=== PATIENT | female | born 1985 | race American Indian/Alaskan Native ===

== ENCOUNTER 2016-04-08 11:27 | Inpatient (IN) | payer MEDICAID ==
[2016-04-08] MEDS ORDERED: Betamethasone Acetate/Betamethasone Sod Phosphate 30 MG/5 ML MDV IM ONE (12:06)
[2016-04-08] MEDS ORDERED: Penicillin G Potassium 5 MILLUNITS in Sodium Chloride 0.9% 100 ML IV ONE (12:08)
[2016-04-08] MEDS ORDERED: Lactated Ringers 1,000 ML IV ONE (12:09)
[2016-04-08] MEDS ORDERED: Magnesium Sulfate/Water 100 ML IV ONE (12:16)
[2016-04-08] MEDS ORDERED: Citric Acid/Sodium Citrate Solution 30 ML Cup PO ONE (12:43)
[2016-04-08] MEDS ORDERED: Sodium Chloride 0.9% 10 ML Syringe FLUSH PRN (12:43)
[2016-04-08] MEDS ORDERED: ceFAZolin 2 GM in Premix Bag 1 BAG IV ONE (12:43)
[2016-04-08] MEDS ORDERED: Oxytocin/Normal Saline 30 UNIT/500 ML BAG IV SCH (13:00)
--- NOTE | 2016-04-08 13:24 | HP ---
CHIEF COMPLAINT: Leaking fluid since last night, sharp abdominal pains every 15 minutes. HISTORY OF PRESENT ILLNESS: A 31-year-old, currently at 29 weeks 3 days gestation of her fifth , who presents to Labor and Delivery reporting feeling leakage of fluid starting around 11 o'clock last night and reporting sharp abdominal pains about every 15 minutes that started about 11 o'clock this morning. Current time is 12:51 a.m. Nurses report that the pain is so severe that she will cry with the pain that she reports that they feel contraction- like. She has been having movement. She has not had any obvious vaginal bleeding. Nurse's Nitrazine test on the pad was positive. Obstetrical history can be reviewed in [facility], no time detail that now. Four prior vaginal deliveries at term. Prior gestational diabetes. One prior shoulder dystocia. OBSTETRICAL LABORATORY DATA: Blood type O positive. Rubella immune. Syphilis serology, HIV, gonorrhea, chlamydia, hepatitis all negative. Group B strep unknown. Glucose tolerance test abnormal. Patient diagnosed as gestational diabetic, diet controlled. PAST MEDICAL HISTORY: Asthma, chronic lumbar back pain, poor weight gain of , refused influenza vaccine, anemia of , and tobacco abuse. Gestational diabetes. PAST SURGICAL HISTORY: Dental surgery and hand fracture. FAMILY HISTORY: Mother, hypertension and diabetes. Father, diabetes and asthma. Brother, diabetes. Grandparents, one of a brain hernia or aneurysm, stroke and diabetes. Otherwise, family history is negative. 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 She is not currently in a relationship with the father of the baby. She lives with her mother who helps her take care of her 4 children, one of whom was just discharged from the hospital this past weekend. She also lives with a brother who is a handicap, but he helps take care of her older 2 children when she is at work. ALLERGIES: Ibuprofen causes swelling of the legs, feet, as well as a skin rash. MEDICATIONS: Iron twice daily. Currently not on any diabetes medications. Thyroid levels being monitored throughout and not requiring medications. REVIEW OF SYSTEMS: As per the history of present illness. No symptoms of preeclampsia. No symptoms of severe anemia. No syncope. No fever or chills. No numbness or tingling. Some pelvic pressure with her abdominal pains. PHYSICAL EXAMINATION: Vital Signs: Not yet in [employer]. General: Grossly, the patient is in mild distress mostly emotionally, some pain with contractions. HEENT: Unremarkable. Heart: Regular without murmur. Lungs: Clear bilaterally. Abdomen: Soft, gravid. Difficult to trace heart tones. They are roughly about 120 beats per minute at baseline when we can get them. They decelerate down into the 90s every time she reports the sharp pains. [place] is not tracing contractions, but patient is marking when she does get the sharp pain. Cervix is long, closed internally, open externally. Pooling was present. Nitrazine negative per my exam. Watery fluid was present. Extremities: No edema, erythema, or tenderness. LABORATORY DATA: Hemoglobin 9.4, platelet count 252. Wet prep with moderate clue cells. Ferning is negative. AmniSure negative. Ultrasound shows grossly normal amount of amniotic fluid. BPP is pending. Baby is breech. Tech sees probable placental abruption at the end of the exam that she did not see at the initial start of the exam. heart tone decelerations confirmed with ultrasound. ASSESSMENT: 1. Multiparous patient, , 4 prior vaginal deliveries. 2. distress, suspect placental abruption. 3. Anemia of , hgb 9.4. 4. Gestational diabetes, currently diet controlled. 5. High-risk overall with a history of spotting in the second trimester at 15 weeks' gestation. 6. History of macrosomic delivery. 7. Poor weight gain of . 8. Chronic back pain. 9. Asthma. 10. Placental abruption on US. 11.Nuchal cord on US. 12.GBS unknown. PLAN: Intensive Care Nursery was called and asked to come to [place] as soon as possible for urgent emergent delivery. Dr. Rudd was consulted and he also rendered his opinion and looked over all of the information with me. We both agree that the patient needs to be taken to the operating room for delivery via primary section. We will attempt a low transverse; however, may need to convert to classical or inverted T-incision in order to get the baby out. Dr. Rudd and I will be managing the baby after delivery until the NICU comes. [facility] /[id number] [facility]
[2016-04-08] MEDS ORDERED: Carboprost Tromethamine 250 MCG/1 ML Amp ONE (14:06)
[2016-04-08] MEDS ORDERED: Methylergonovine 0.2 MG/1 ML Amp ONE (14:06)
[2016-04-08] MEDS ORDERED: Ondansetron 4 MG/2 ML SDV IV PRN (15:25)
[2016-04-08] MEDS ORDERED: Naloxone 2 MG/2 ML Syringe IVPUSH PRN (15:25)
[2016-04-08] MEDS ORDERED: ePHEDrine 50 MG/ML SDV IVPUSH PRN (15:25)
[2016-04-08] MEDS ORDERED: diphenhydrAMINE 50 MG/ML SDV IVPUSH PRN (15:25)
--- NOTE | 2016-04-08 15:54 | PCM.SN ---
- Free Text/Narrative Note: Preop Late entry. 1350. Pt to OR 2 emergently for stat standby C section. Hx reviewed w MD and Pt. No family Hx of anesthesia complications. NPO 5 hrs. Pos smoker, Neg GERD. Mallampati 2. Hx gestational diabetes, hypothyroid, anemia, . Lungs CTAB, heart regular w/o m. Risks benefits and alternatives of anesthesia explained to Pt. Pt denies questions or concerns. Plan SAB w GETA backup.
[2016-04-08] MEDS: Lactated Ringers 1,000 ML IV SCH ×3 (16:54→21:14)
[2016-04-08] MEDS: Acetaminophen 325 MG Tab PO SCH (20:44)
[2016-04-08] MEDS: Acetaminophen/oxyCODONE 325-5 MG Tab PO PRN (23:31)
[2016-04-09] MEDS: Acetaminophen 325 MG Tab PO SCH ×2 (00:08→05:48)
[2016-04-09] MEDS: Ferrous Sulfate 325 MG Tab PO SCH ×3 (00:08→17:54)
[2016-04-09] MEDS: Acetaminophen/oxyCODONE 325-5 MG Tab PO PRN ×5 (04:46→22:21)
[2016-04-09] MEDS: Simethicone 80 MG Tab.Chew PO PRN ×4 (04:46→22:21)
[2016-04-09] MEDS: Lactated Ringers 1,000 ML IV SCH (04:59)
[2016-04-09] MEDS ORDERED: Acetaminophen 325 MG Tab PO PRN (06:33)
--- NOTE | 2016-04-09 06:59 | OR ---
DATE: 04/08/2016 PREPROCEDURE DIAGNOSES: 1. 5, para 4-0-0-4 at 29 and 3/7th weeks gestation based on 9 week ultrasound. 2. Placental abruption suspected clinically and with evidence on ultrasound per tech impression. 3. distress with heart rate decelerations down into the 90s. 4. Anemia of . Admission hemoglobin 9.4. 5. Gestational diabetes, diet controlled. 6. High risk with a history of bleeding at 15 weeks. 7. History of delivery macrosomic . 8. Poor weight gain of . 9. Mild asthma. 10.Likely nuchal cord seen on ultrasound. 11.Group B strep status, unknown. POSTPROCEDURE DIAGNOSES: 1. 5, para 4-0-0-4 at 29 and 3/7th weeks gestation based on 9 week ultrasound. 2. Placental abruption suspected clinically and with evidence on ultrasound per tech impression. 3. distress with heart rate decelerations down into the 90s. 4. Anemia of . Admission hemoglobin 9.4. 5. Gestational diabetes, diet controlled. 6. High risk with a history of bleeding at 15 weeks. 7. History of delivery macrosomic . 8. Poor weight gain of . 9. Mild asthma. 10.Likely nuchal cord seen on ultrasound. 11.Group B strep status, unknown. 12.Anemia of acute blood loss. 13.Status post primary with double-layer closure and internal cephalad version. 14.Initiation of blood transfusions intraoperatively. BRIEF HISTORY: A 31-year-old female with the above-listed diagnoses, presented to the hospital reporting leakage of fluid since 11:00 the night before, and pain that started about one hour prior to arrival in the abdomen sharp in quality and occurring about every 15 minutes. Rapid assessment showed Nitrazine positive on the panty liner that she was wearing. However, speculum exam showed positive pooling but negative Nitrazine, and negative AmniSure and ferning. Cervix was palpated to be long and closed. Ultrasound showed a cervix of 5.3 cm measured transabdominally baby is in breech presentation. Adequate amniotic fluid volume of greater than 16. Biophysical profile of 8/10. Radiologist interpretation of possible placental abruption area was of a uterine contraction with the distress and overall clinical picture consistent with placental abruption. The patient taken to the operating room for delivery. PROCEDURE PERFORMED: 1. Primary low transverse section with internal cephalad version from breech to vertex successful, and delivery of a viable female infant. 2. Double-layer uterine closure. The patient is a candidate for . SURGEON: Ariela Vallejo MD. FINANCIAL INVESTMENT ADVISER: Varinder Rudd MD. SECOND DIAMOND SIZER AND GRADER: Rina SANTIAGO. CONSENT: Discussed with the patient ahead of time. Risk for potential infection and plan for preoperative antibiotics, risk for bleeding to the point of requiring a blood transfusion, as well as its inherent risks such as transfusion reaction or contraction of blood borne disease such as hepatitis or HIV, risk of injury to any internal organs or adjacent structures including, but not limited to, large blood vessels, nerves, veins, uterus fallopian tubes, ovaries, intestines, bladder, and other internal structures potential for complications for mother that would require her being transferred to another facility for higher level of care and even potential risk of , potential risk to the baby of injury at time of delivery, and even potential for . NICU was prepared to be Enroute and present prior to delivery. DESCRIPTION OF PROCEDURE: The patient was brought to the operating room and spinal anesthesia obtained. West indwelling catheter had already been placed down on the Labor and delivery floor. We had maintained doppling of the heart tones which went from a baseline in the 150s up to the 180s to even 200s within 5 to 10 minutes before the NICU arrived. As soon as they are in the building, the abdomen was prepped and draped in the usual fashion and surgery initiated. Skin incision was made at 1423 hours and carried down to the underlying fascia with minimal use of cautery and mostly finger dissection. The fascia was then incised in the midline with scalpel and this was extended bilaterally with blunt finger traction and cautery. The superior fascial edge was grasped and tented up with Don's and rectus muscles dissected off bluntly. Inferior fascial edge grasped with Don's, tented up, and rectus muscles dissected off. Rectus muscles in the midline with blunt finger traction and peritoneal cavity entered with blunt finger dissection and this opening entered with traction. The uterus incision was made at 1425 hours with scalpel and carried down until the amniotic fluid sac was seen and hysterotomy site extended with the Lopez method, and with amniotic fluid sac intact Dr. Rudd attempted internal cephalad version and got the baby to the back down transverse. Amniotic fluid sac was then ruptured and I was able to complete the internal cephalad version to bring the baby's head down spine to the maternal right by performing backward roll, baby was then delivered at 1426 hours. 's mouth and nose were bulb suctioned. Three-vessel umbilical cord was doubly clamped and cut. Baby taken to the warmer for waiting NICU team. Placenta delivered by gentle cord traction and concomitant uterine massage at 1427 hours. With delivery of the placenta, there was some dark red blood clot seen consistent with old blood from an abruption. Several blood vessels on the uterus were bleeding and those were controlled with Herbert, and the uterus was then cleared of all clots and debris and trailing membranes. The hysterotomy site was then closed with a running lock stitch of 0 Vicryl in the usual fashion. A second imbricating stitch of 0 Vicryl was then used and excellent hemostasis obtained. The Andrea retractor was removed and the pericolic gutters were cleared of all clots and debris. Hysterotomy site reinspected and remained hemostatic. The peritoneal layer was brought together in the midline with a remnant stitch of 0 Vicryl. This layer was then irrigated and the fascia closed with a running stitch of 0 looped PDS in the usual fashion. Subcutaneous tissues were irrigated and small subcutaneous bleeders controlled with cautery. Skin was then closed with jumana at 1457 hours. The patient had blood started during her surgical course at the time of the uterus closure. Estimated blood loss was already near 2 L. ESTIMATED BLOOD LOSS AND FLUIDS: 2700 mL, suspect 500 of amniotic fluid at a minimum and approximately 2200 to 2300 of blood. URINE OUTPUT: 300 mL clear yellow. IV FLUIDS: 400 mL with blood, 2600 mL lactated Ringer's, 300 mL with Pitocin, and 100 mL with the magnesium sulfate. The patient had some low pressures and also did receive for 30 of ephedrine. COMPLICATIONS: Intrapartum hemorrhage anticipated because of the nature of the delivery and the magnesium sulfate had been given to the baby for neuroprotection. FINDINGS: Viable female infant, scores of 8 and 9. weight 1710 g. DISPOSITION: Mother will remain in the PACU with blood infusing until the baby is ready for transport by the NICU team. Once they have left, mother will be brought back to a room on Labor and Delivery. In addition to her 4 units of blood, she will be given some Benadryl with transfusion and also 10 of Lasix between units 2 and 3 to help with diuresis. [facility] /[id number] [facility]
--- NOTE | 2016-04-09 08:10 | PCM.SN ---
- Free Text/Narrative Note: 04/09/16 0805 postop patient recovered well from spinal anesthesia pain well controlled denies nausea no apparent complications with anesthesia
--- NOTE | 2016-04-09 08:33 | PCM.PNPP ---
<Rina Nichols - Last Filed: 04/09/16 08:25> - General Info Date of Service: 04/09/16 Functional Status: Reports: pain controlled, tolerating diet - Review of Systems General: Reports: no symptoms HEENT: Reports: no symptoms Pulmonary: Reports: no symptoms Cardiovascular: Reports: no symptoms Gastrointestinal: Reports: No symptoms Genitourinary: Reports: no symptoms Musculoskeletal: Reports: no symptoms Skin: Reports: no symptoms Neurological: Reports: no symptoms Psychiatric: Reports: no symptoms - General Info Date of Service: 04/09/16 - Patient Data Vital Signs - most recent: Last Vital Signs Temp 97.4 F 04/09/16 05:00 Pulse 73 04/09/16 05:00 Resp 16 04/09/16 05:00 BP 96/54 L 04/09/16 05:00 Pulse Ox 99 04/08/16 20:00 Weight - most recent: 96.162 kg I&O - last 24 hours: Intake & Output 04/08/16 04/09/16 04/09/16 22:59 06:59 14:59 Intake Total 3822 1000 Output Total 650 1300 Balance 3172 -300 Lab Results - last 24 hrs: Laboratory Results - last 24 hr 04/08/16 04/08/16 04/08/16 Range/Units 11:50 11:50 12:15 WBC 8.4 (5.0-10.0) 10^3/uL RBC 3.72 L (4.2-5.4) 10^6/uL Hgb 9.4 L (12.0-16.0) g/dL Hct 30.4 L (37.0-47.0) % MCV 81.7 (80-100) fL MCH 25.3 L (27.0-34.0) pg MCHC 30.9 L (33.0-35.0) g/dL Plt Count 252 (150-450) 10^3/uL Neut % (Auto) 76.4 H (42.2-75.2) % Lymph % (Auto) 16.2 L (20.5-50.1) % [place] % (Auto) 5.9 (2-8) % Eos % (Auto) 1.4 (1.0-3.0) % Baso % (Auto) 0.1 (0.0-1.0) % Urine Color (YELLOW) Urine Appearance (CLEAR) Urine pH (5.0-9.0) Ur Specific [place] (1.005-1.030) Urine Protein (NEGATIVE) Urine Glucose (UA) (NEGATIVE) Urine Ketones (NEGATIVE) Urine Occult Blood (NEGATIVE) Urine Nitrite (NEGATIVE) Urine Bilirubin (NEGATIVE) Urine Urobilinogen (0.2-1.0) mg/dL Ur Leukocyte Esterase (NEGATIVE) Urine RBC /HPF Urine WBC (0-5/HPF) /HPF Amorphous Sediment (0/HPF) /HPF Amniotic Ferning Test Not seen Membrane Rupture (NEG) Urine Opiates Screen (NEGATIVE) Ur Oxycodone Screen (NEGATIVE) Urine Methadone Screen (NEGATIVE) Ur Barbiturates Screen (NEGATIVE) U Tricyclic Antidepress (NEGATIVE) Ur Phencyclidine Scrn (NEGATIVE) Ur Amphetamine Screen (NEGATIVE) U Methamphetamines Scrn (NEGATIVE) Urine MDMA Screen (NEGATIVE) U Benzodiazepines Scrn (NEGATIVE) Urine Cocaine Screen (NEGATIVE) U Marijuana (THC) Screen (NEGATIVE) Blood Type O POSITIVE Gel Antibody Screen Negative Crossmatch See Detail 04/08/16 04/08/16 04/08/16 Range/Units 12:15 14:56 14:56 WBC (5.0-10.0) 10^3/uL RBC (4.2-5.4) 10^6/uL Hgb (12.0-16.0) g/dL Hct (37.0-47.0) % MCV (80-100) fL MCH (27.0-34.0) pg MCHC (33.0-35.0) g/dL Plt Count (150-450) 10^3/uL Neut % (Auto) (42.2-75.2) % Lymph % (Auto) (20.5-50.1) % [place] % (Auto) (2-8) % Eos % (Auto) (1.0-3.0) % Baso % (Auto) (0.0-1.0) % Urine Color Yellow (YELLOW) Urine Appearance Clear (CLEAR) Urine pH 7.0 (5.0-9.0) Ur Specific [place] 1.015 (1.005-1.030) Urine Protein Negative (NEGATIVE) Urine Glucose (UA) Negative (NEGATIVE) Urine Ketones 15 H (NEGATIVE) Urine Occult Blood Negative (NEGATIVE) Urine Nitrite Negative (NEGATIVE) Urine Bilirubin Negative (NEGATIVE) Urine Urobilinogen 0.2 (0.2-1.0) mg/dL Ur Leukocyte Esterase Negative (NEGATIVE) Urine RBC Not seen /HPF Urine WBC Not seen (0-5/HPF) /HPF Amorphous Sediment Occasional (0/HPF) /HPF Amniotic Ferning Test Membrane Rupture Negative (NEG) Urine Opiates Screen Negative (NEGATIVE) Ur Oxycodone Screen Negative (NEGATIVE) Urine Methadone Screen Negative (NEGATIVE) Ur Barbiturates Screen Negative (NEGATIVE) U Tricyclic Antidepress Negative (NEGATIVE) Ur Phencyclidine Scrn Negative (NEGATIVE) Ur Amphetamine Screen Negative (NEGATIVE) U Methamphetamines Scrn Negative (NEGATIVE) Urine MDMA Screen Negative (NEGATIVE) U Benzodiazepines Scrn Negative (NEGATIVE) Urine Cocaine Screen Negative (NEGATIVE) U Marijuana (THC) Screen Negative (NEGATIVE) Blood Type Gel Antibody Screen Crossmatch 04/08/16 Range/Units 22:30 WBC 10.1 H (5.0-10.0) 10^3/uL RBC 4.25 (4.2-5.4) 10^6/uL Hgb 11.1 L (12.0-16.0) g/dL Hct 34.9 L (37.0-47.0) % MCV 82.1 (80-100) fL MCH 26.1 L (27.0-34.0) pg MCHC 31.8 L (33.0-35.0) g/dL Plt Count 206 (150-450) 10^3/uL Neut % (Auto) (42.2-75.2) % Lymph % (Auto) (20.5-50.1) % [place] % (Auto) (2-8) % Eos % (Auto) (1.0-3.0) % Baso % (Auto) (0.0-1.0) % Urine Color (YELLOW) Urine Appearance (CLEAR) Urine pH (5.0-9.0) Ur Specific [place] (1.005-1.030) Urine Protein (NEGATIVE) Urine Glucose (UA) (NEGATIVE) Urine Ketones (NEGATIVE) Urine Occult Blood (NEGATIVE) Urine Nitrite (NEGATIVE) Urine Bilirubin (NEGATIVE) Urine Urobilinogen (0.2-1.0) mg/dL Ur Leukocyte Esterase (NEGATIVE) Urine RBC /HPF Urine WBC (0-5/HPF) /HPF Amorphous Sediment (0/HPF) /HPF Amniotic Ferning Test Membrane Rupture (NEG) Urine Opiates Screen (NEGATIVE) Ur Oxycodone Screen (NEGATIVE) Urine Methadone Screen (NEGATIVE) Ur Barbiturates Screen (NEGATIVE) U Tricyclic Antidepress (NEGATIVE) Ur Phencyclidine Scrn (NEGATIVE) Ur Amphetamine Screen (NEGATIVE) U Methamphetamines Scrn (NEGATIVE) Urine MDMA Screen (NEGATIVE) U Benzodiazepines Scrn (NEGATIVE) Urine Cocaine Screen (NEGATIVE) U Marijuana (THC) Screen (NEGATIVE) Blood Type Gel Antibody Screen Crossmatch Micro Results - last 24 hours: Microbiology 04/08/16 12:15 Wet Prep - Final Vagina Med Orders - Current: Current Medications Acetaminophen (Tylenol) 650 mg PO Q6H PRN PRN Reason: Pain Diphenhydramine HCl (Benadryl) 25 mg IVPUSH Q6H PRN PRN Reason: Itching or Nausea Docusate Sodium (Colace) 100 mg PO Q12H PRN PRN Reason: Constipation Ephedrine Sulfate (Ephedrine Sulfate) 5 mg IVPUSH SEECOMMENT PRN PRN Reason: Other Ferrous Sulfate (Ferrous Sulfate) 325 mg PO BIDMEALS GISELLA Last Admin: 04/09/16 00:08 Dose: Not Given Oxytocin/Sodium Chloride (Pitocin In Ns 30 Unit/500 Ml) 30 unit in 500 mls @ 500 mls/hr IV TITRATE GISELLA; 500 MUNITS/MIN PRN Reason: Protocol Last Titration: 04/08/16 18:05 Dose: 0 munits/min, 0 mls/hr Lactated Ringer's (Ringers, Lactated) 1,000 mls @ 125 mls/hr IV ASDIRECTED GISELLA Last Admin: 04/09/16 04:59 Dose: 125 mls/hr Naloxone HCl (Narcan) 0.1 mg IVPUSH SEECOMMENT PRN PRN Reason: Respiratory Depression Ondansetron HCl (Zofran) 4 mg IV Q4H PRN PRN Reason: Nausea/Vomiting Oxycodone/Acetaminophen (Percocet 325-5 Mg) 1 tab PO Q4H PRN PRN Reason: Pain (moderate 4-6) Last Admin: 04/08/16 23:31 Dose: 1 tab Oxycodone/Acetaminophen (Percocet 325-5 Mg) 2 tab PO Q4H PRN PRN Reason: Pain (moderate 4-6) Last Admin: 04/09/16 04:46 Dose: 2 tab Simethicone (Simethicone) 80 mg PO Q4H PRN PRN Reason: Gas Last Admin: 04/09/16 04:46 Dose: 80 mg Sodium Chloride (Saline Flush) 10 ml FLUSH ASDIRECTED PRN PRN Reason: Keep Vein Open Last Admin: 04/08/16 16:55 Dose: 10 ml Discontinued Medications Acetaminophen (Tylenol) 650 mg PO Q6H GISELLA Last Admin: 04/09/16 05:48 Dose: Not Given Betamethasone Acet/Betameth SodPhos (Celestone Soluspan 6 Mg/Ml) 12 mg IM ONETIME ONE Stop: 04/08/16 12:07 Last Admin: 04/08/16 11:59 Dose: 12 mg Carboprost Tromethamine (Hemabate Ds) Confirm Administered Dose 250 mcg .ROUTE .STK-MED ONE Stop: 04/08/16 14:07 Citric Acid/Sodium Citrate (Bicitra Solution) 30 ml PO ONETIME ONE Stop: 04/08/16 12:44 Last Admin: 04/08/16 13:30 Dose: 30 ml Lactated Ringer's (Ringers, Lactated) 1,000 mls @ 999 mls/hr IV .BOLUS ONE Stop: 04/08/16 13:09 Last Admin: 04/08/16 11:35 Dose: 999 mls/hr Penicillin G Potassium 5 (millunits/ Sodium Chloride) 100 mls @ 200 mls/hr IV ONETIME ONE Stop: 04/08/16 12:37 Last Admin: 04/08/16 12:10 Dose: 200 mls/hr Magnesium Sulfate (Magnesium Sulfate 4 Gm In Water 100 Ml) 100 mls @ 100 mls/ hr IV ONETIME ONE Stop: 04/08/16 13:15 Last Admin: 04/08/16 13:35 Dose: 200 mls/hr Cefazolin Sodium/Dextrose 2 gm (/ Premix) 50 mls @ 100 mls/hr IV ONETIME ONE Stop: 04/08/16 13:12 Last Admin: 04/08/16 14:05 Dose: 100 mls/hr Methylergonovine Maleate (Methergine) Confirm Administered Dose 0.2 mg .ROUTE .STK-MED ONE Stop: 04/08/16 14:07 - Infant Interaction Disposition, : transfer to [facility] Interaction: Other (see below) (has talked to [facility] and plans to do so again) Support Person: Mother - Recovery Exam Fundal Tone: Firm Fundal Level: 3 Fingerbreadths Below Umbilicus Fundal Placement: Midline Lochia Amount: Small Lochia Color: Brownish Perineum Description: Intact, Minimal Bruising/Swelling Episiotomy/Laceration: None Bladder Status: Nonpalpable, Indwelling Catheter in Place Urinary Elimination: Indwelling Catheter - Exam General: alert, oriented HEENT: Pupils equal Neck: supple Lungs: Clear to auscultation, Normal respiratory effort Cardiovascular: regular rate, regular rhythm Abdomen: bowel sounds present, soft, no tenderness, no distension Extremities: no edema Skin: warm, dry, intact Wound/Incisions: healing well Neurological: no new focal deficit Psy/Mental Status: alert, normal affect, normal mood - Problem List & Annotations (1) Placental abruption SNOMED Code(s): 745758748, 829706978 Code(s): O45.90 - PREMATURE SEPARATION OF PLACENTA, UNSP, UNSP TRIMESTER Status: Acute Current Visit: Yes - Problem List Review Problem List Initiated/Reviewed/Updated: Yes - Assessment Assessment:: S/P csection day 1. 4 prior vaginal deliveries Placental abruption on U/S Anemia of Diet controlled Gestational Diabetes High risk History of macrosomic deliver Poor weight gain of Chronic back pain Asthma Nuchal Cord on U/S GBS status unknown - Plan Plan:: Hemoglobin post 4 units pRBC was 11.1, continue to monitor hgb Plan to remove anderson cath and ambulate 04/09/16 afternoon monitor for infection via vitals and status. plan for discharge once medically stable. <Ariela Patton - Last Filed: 04/09/16 21:17> - Patient Data Vital Signs - most recent: Last Vital Signs Temp 98.2 F 04/09/16 20:00 Pulse 75 04/09/16 20:00 Resp 16 04/09/16 20:00 BP 102/66 04/09/16 20:00 Pulse Ox 99 04/09/16 16:00 I&O - last 24 hours: Intake & Output 04/09/16 04/09/16 04/09/16 06:59 14:59 22:59 Intake Total 1000 1000 Output Total 1300 1275 700 Balance -300 -275 -700 Lab Results - last 24 hrs: Laboratory Results - last 24 hr 04/08/16 04/08/16 Range/Units 11:50 22:30 WBC 10.1 H (5.0-10.0) 10^3/uL RBC 4.25 (4.2-5.4) 10^6/uL Hgb 11.1 L (12.0-16.0) g/dL Hct 34.9 L (37.0-47.0) % MCV 82.1 (80-100) fL MCH 26.1 L (27.0-34.0) pg MCHC 31.8 L (33.0-35.0) g/dL Plt Count 206 (150-450) 10^3/uL Blood Type O POSITIVE Gel Antibody Screen Negative Crossmatch See Detail Med Orders - Current: Current Medications Acetaminophen (Tylenol) 650 mg PO Q6H PRN PRN Reason: Pain Diphenhydramine HCl (Benadryl) 25 mg IVPUSH Q6H PRN PRN Reason: Itching or Nausea Docusate Sodium (Colace) 100 mg PO Q12H PRN PRN Reason: Constipation Last Admin: 04/09/16 09:20 Dose: 100 mg Ephedrine Sulfate (Ephedrine Sulfate) 5 mg IVPUSH SEECOMMENT PRN PRN Reason: Other Ferrous Sulfate (Ferrous Sulfate) 325 mg PO BIDMEALS GISELLA Last Admin: 04/09/16 17:54 Dose: 325 mg Oxytocin/Sodium Chloride (Pitocin In Ns 30 Unit/500 Ml) 30 unit in 500 mls @ 500 mls/hr IV TITRATE GISELLA; 500 MUNITS/MIN PRN Reason: Protocol Last Titration: 04/08/16 18:05 Dose: 0 munits/min, 0 mls/hr Lactated Ringer's (Ringers, Lactated) 1,000 mls @ 125 mls/hr IV ASDIRECTED GISELLA Last Admin: 04/09/16 04:59 Dose: 125 mls/hr Naloxone HCl (Narcan) 0.1 mg IVPUSH SEECOMMENT PRN PRN Reason: Respiratory Depression Ondansetron HCl (Zofran) 4 mg IV Q4H PRN PRN Reason: Nausea/Vomiting Oxycodone/Acetaminophen (Percocet 325-5 Mg) 1 tab PO Q4H PRN PRN Reason: Pain (moderate 4-6) Last Admin: 04/09/16 09:21 Dose: 1 tab Oxycodone/Acetaminophen (Percocet 325-5 Mg) 2 tab PO Q4H PRN PRN Reason: Pain (moderate 4-6) Last Admin: 04/09/16 17:51 Dose: 2 tab Simethicone (Simethicone) 80 mg PO Q4H PRN PRN Reason: Gas Last Admin: 04/09/16 13:21 Dose: 80 mg Sodium Chloride (Saline Flush) 10 ml FLUSH ASDIRECTED PRN PRN Reason: Keep Vein Open Last Admin: 04/08/16 16:55 Dose: 10 ml Discontinued Medications Acetaminophen (Tylenol) 650 mg PO Q6H GISELLA Last Admin: 04/09/16 05:48 Dose: Not Given Betamethasone Acet/Betameth SodPhos (Celestone Soluspan 6 Mg/Ml) 12 mg IM ONETIME ONE Stop: 04/08/16 12:07 Last Admin: 04/08/16 11:59 Dose: 12 mg Carboprost Tromethamine (Hemabate Ds) Confirm Administered Dose 250 mcg .ROUTE .STK-MED ONE Stop: 04/08/16 14:07 Citric Acid/Sodium Citrate (Bicitra Solution) 30 ml PO ONETIME ONE Stop: 04/08/16 12:44 Last Admin: 04/08/16 13:30 Dose: 30 ml Lactated Ringer's (Ringers, Lactated) 1,000 mls @ 999 mls/hr IV .BOLUS ONE Stop: 04/08/16 13:09 Last Admin: 04/08/16 11:35 Dose: 999 mls/hr Penicillin G Potassium 5 (millunits/ Sodium Chloride) 100 mls @ 200 mls/hr IV ONETIME ONE Stop: 04/08/16 12:37 Last Admin: 04/08/16 12:10 Dose: 200 mls/hr Magnesium Sulfate (Magnesium Sulfate 4 Gm In Water 100 Ml) 100 mls @ 100 mls/ hr IV ONETIME ONE Stop: 04/08/16 13:15 Last Admin: 04/08/16 13:35 Dose: 200 mls/hr Cefazolin Sodium/Dextrose 2 gm (/ Premix) 50 mls @ 100 mls/hr IV ONETIME ONE Stop: 04/08/16 13:12 Last Admin: 04/08/16 14:05 Dose: 100 mls/hr Methylergonovine Maleate (Methergine) Confirm Administered Dose 0.2 mg .ROUTE .STK-MED ONE Stop: 04/08/16 14:07 - My Orders Last 24 Hours: My Active Orders 04/09/16 06:33 Acetaminophen [Tylenol] 650 mg PO Q6H PRN - Plan Plan:: Patient seen and examined with Rina Nichols, MS agree with her note. Also spoke to Gerda about use of anti-depressant medications and she declines at this time. -contact center specialist 04/09/16 [id number]
--- NOTE | 2016-04-09 09:14 | CONS ---
PATIENT IDENTIFICATION: Gerda Nixon is a 31-year-old G5, P4-0-0-4, intrauterine of 29 weeks, by 9-3/7 week ultrasound, who presents with contractions, abdominal pain, and vaginal leaking. I, Dr. Rudd, was asked to consult on this patient by Dr. Somers for recommendations for further evaluation and management of this patient with the above symptoms and below findings. HISTORY OF PRESENT ILLNESS: This 31-year-old, 29-3/7 weeks by 9-3/7 week ultrasound, G5, P4-0-0-4, describes vaginal leaking started at 11:00 p.m. night prior, continuing throughout the day today, associated with abdominal pain starting approximately 11:00 a.m. Described as contractions rated 8-9/10 lasting 1 to 2 minutes in nature, severe in nature and feels like as if she is in labor. Initial evaluation was done by Dr. Somers with the pooling noted, positive Nitrazine, negative ferning, and negative AmniSure, but with monitoring, heart tones dropped down into the 80s to 90s range with Doptone and confirmed with ultrasound during patient's pain with tocometer having difficulty reading any contractions. Stat ultrasound was called for, with a BPP and JAMES with JAMES in the 16 range. I was asked to render a second opinion. Records were called for, reviewed as below and supplemented by patient's history. ANTEPARTUM LABS: ABO blood type is O positive, negative antibody. Rubella immune. RPR nonreactive. Negative hepatitis B surface antigen. Negative Hep C, HIV, GC, and Chlamydia. Wet prep within normal limits. One-hour GTT was 179 and she has been worked up and has history of gestational diabetes mellitus. OB HISTORY: Please see the scanned report from [facility]. She is a G5, P4 all delivered at term anywhere from 37-3/7 weeks to 40 weeks with history of gestational diabetes mellitus. ALLERGIES: Motrin. MEDS: Please see medication list with vitamins gestational diabetes mellitus. PAST MEDICAL/PAST SURGICAL HISTORY: Remarkable for dental surgery, some hand finger fracture, open reduction internal fixation 2015. BV in the past. Gestational diabetes mellitus that is diet controlled currently, asthma, had a history of anemia in . SOCIAL HISTORY: Former smoker. 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 Not , lives on her own. Father of baby is Tristin Calero. He works at [employer] and they have had relationship troubles in the past. REVIEW OF SYSTEMS: The patient describes her belly pain as above. No fever, chills, or sweats. She has had oral intake today. Otherwise review of systems reviewed quickly and felt to be noncontributory. OBJECTIVE: Vital Signs: Please see updated list and chart. Appearance: Female appears stated age, wincing in pain, grasping her abdomen when she has her pains with heart tones dropped down in 80s to 90s during that time. Appears her stated age, nontoxic appearance. HEENT: Head is atraumatic. EOMs intact. PERRLA. No scleral icterus. No otorhinorrhea. Mucous membranes are moist. Neck: No lesions. Lungs: Clear to auscultation bilaterally. No increased work of breathing. Heart: S1 and S2, regular rate and rhythm. Abdomen: Gravid. Moris is indeterminate. Nontender and nondistended. Ultrasound being done as well as monitors applied. : Please see Dr. Somers's notes. Positive for pooling, Nitrazine equivocal, with positive test per nurse's with ferning and AmniSure negative. heart tones noted as above with tocometer revealing difficulty reading any contractions, but when she has her pain, there has been Doptones down in the 80s to 90s and even lower with this documented with ultrasound as well. Ultrasound images reviewed with tech present. JAMES is in the 16 range. Biophysical profile scored very well; however, there was a new finding in the placental area that was concerning for a placental abruption versus contraction. ASSESSMENT AND PLAN: 1. Intrauterine at 29-3/7 weeks by 9-3/7 week ultrasound. 2. contractions. 3. Abdominal pain with abruption suspected based on nonreassuring status, pain, and ultrasound findings. 4. Nonreassuring status with heart tones in the 90s and lower with pain. 5. Nuchal cord on ultrasound, suspected. 6. Vaginal leaking since 11:00 p.m. night prior to admission. Negative AmniSure and ferning with JAMES in the 16 range. 7. Group B Streptococcus unknown, penicillin given. 8. Potential for labor and delivery with above findings. Mag sulfate will be given as well as betamethasone has already been given 12 mg IM x1. 9. Motrin allergy. 10.G5, P4-0-0-4. PLAN: I did discuss the case with Dr. Somers as well as with the patient and her mother because of suspicion for placental abruption based on ultrasound findings as well as heart tones dropping with abdominal pain, we will proceed to the OR as soon as possible. There, most likely we will continue with continuous monitoring while waiting for the NICU. However, if patient starts having worsening pain, bleeding, or further distress, we will proceed with section with spinal to be placed immediately while we are monitoring in the OR. Shared decision was made in regard to this. I did discuss this case with Dr. Somers, reviewed the chart extensively and both of us agree with the above treatment plan. Please see further dictations for further details. Of note, currently we are having heart tones in the 140s to 150s range when tracing. We will proceed to the OR as soon as possible and proceed as above. I did discuss with patient potential need for general anesthesia and I did discuss with her as well as Dr. Somers, risks, benefits, alternatives and complication of including, but not limited to, infection, bleeding, damage to internal organs such as bowel, bladder, tubes, uterus, ovaries, sometimes fetus rarely needing a blood transfusion or further surgery, and even rarer maternal or . She understands and agrees and wished to proceed. Verbal and written consent were obtained. Questions were answered. [facility] has been notified of this case by Dr. Somers. I did discuss with patient and her mother that we will be transferring this patient to the [facility] as soon as they arrive. In the mean time, if we need to deliver sooner will need to stabilize and follow closely. [facility] /[id number]
[2016-04-09] MEDS: Docusate Sodium 100 MG Cap PO PRN ×2 (09:20→22:21)
--- NOTE | 2016-04-09 14:40 | PN ---
DATE: 04/09/2016 I, Dr. Rudd, was asked to be present for delivery of this baby for the baby as being born severely premature at 29-3/7th weeks. I presented and waited with the patient and Dr. Somers during this time period. The patient subsequently had a section and NICU team arrived immediately prior to the time of delivery. The patient was handed off to the NICU as soon as delivery ensued with . was transferred to NICU. Once again, I, Dr. Rudd, was asked to be present for this delivery, was with the mother, Dr. Somers, for over an hour, extensive review of charts and followed closely. Please see other notes for further details. [facility] /[id number]
[2016-04-10] MEDS: Acetaminophen/oxyCODONE 325-5 MG Tab PO PRN ×5 (03:14→20:03)
[2016-04-10] MEDS: Docusate Sodium 100 MG Cap PO PRN ×2 (08:01→20:02)
[2016-04-10] MEDS: Ferrous Sulfate 325 MG Tab PO SCH ×2 (08:01→18:41)
[2016-04-10] MEDS: Simethicone 80 MG Tab.Chew PO PRN (08:01)
--- NOTE | 2016-04-10 08:58 | PCM.PNPP ---
- General Info Date of Service: 04/10/16 Admission Dx/Problem (Free Text): Patient states that she is feeling sore but has still been able to get up and ambulate. Pain management has been controlling her pain adequately. She has been able to get up and urinate as well. denies F/C and N/V Functional Status: Reports: pain controlled, tolerating diet, ambulating, urinating - Review of Systems General: Reports: no symptoms HEENT: Reports: no symptoms Pulmonary: Reports: no symptoms Cardiovascular: Reports: no symptoms Gastrointestinal: Reports: No symptoms Genitourinary: Reports: no symptoms Musculoskeletal: Reports: no symptoms Skin: Reports: no symptoms Neurological: Reports: no symptoms Psychiatric: Reports: no symptoms - General Info Date of Service: 04/10/16 - Patient Data Vital Signs - most recent: Last Vital Signs Temp 97.8 F 04/10/16 08:00 Pulse 55 L 04/10/16 08:00 Resp 16 04/10/16 08:00 BP 99/62 04/10/16 08:00 Pulse Ox 99 04/10/16 08:00 Weight - most recent: 212 lb I&O - last 24 hours: Intake & Output 04/09/16 04/10/16 04/10/16 22:59 06:59 14:59 Output Total 700 Balance -700 Med Orders - Current: Current Medications Acetaminophen (Tylenol) 650 mg PO Q6H PRN PRN Reason: Pain Docusate Sodium (Colace) 100 mg PO Q12H PRN PRN Reason: Constipation Last Admin: 04/10/16 08:01 Dose: 100 mg Ferrous Sulfate (Ferrous Sulfate) 325 mg PO BIDMEALS COUNT INCLUDES THE [facility] Last Admin: 04/10/16 08:01 Dose: 325 mg Oxycodone/Acetaminophen (Percocet 325-5 Mg) 1 tab PO Q4H PRN PRN Reason: Pain (moderate 4-6) Last Admin: 04/09/16 09:21 Dose: 1 tab Oxycodone/Acetaminophen (Percocet 325-5 Mg) 2 tab PO Q4H PRN PRN Reason: Pain (moderate 4-6) Last Admin: 04/10/16 08:01 Dose: 2 tab Simethicone (Simethicone) 80 mg PO Q4H PRN PRN Reason: Gas Last Admin: 04/10/16 08:01 Dose: 80 mg Discontinued Medications Acetaminophen (Tylenol) 650 mg PO Q6H GISELLA Last Admin: 04/09/16 05:48 Dose: Not Given Betamethasone Acet/Betameth SodPhos (Celestone Soluspan 6 Mg/Ml) 12 mg IM ONETIME ONE Stop: 04/08/16 12:07 Last Admin: 04/08/16 11:59 Dose: 12 mg Carboprost Tromethamine (Hemabate Ds) Confirm Administered Dose 250 mcg .ROUTE .STK-MED ONE Stop: 04/08/16 14:07 Citric Acid/Sodium Citrate (Bicitra Solution) 30 ml PO ONETIME ONE Stop: 04/08/16 12:44 Last Admin: 04/08/16 13:30 Dose: 30 ml Diphenhydramine HCl (Benadryl) 25 mg IVPUSH Q6H PRN PRN Reason: Itching or Nausea Ephedrine Sulfate (Ephedrine Sulfate) 5 mg IVPUSH SEECOMMENT PRN PRN Reason: Other Lactated Ringer's (Ringers, Lactated) 1,000 mls @ 999 mls/hr IV .BOLUS ONE Stop: 04/08/16 13:09 Last Admin: 04/08/16 11:35 Dose: 999 mls/hr Penicillin G Potassium 5 (millunits/ Sodium Chloride) 100 mls @ 200 mls/hr IV ONETIME ONE Stop: 04/08/16 12:37 Last Admin: 04/08/16 12:10 Dose: 200 mls/hr Magnesium Sulfate (Magnesium Sulfate 4 Gm In Water 100 Ml) 100 mls @ 100 mls/ hr IV ONETIME ONE Stop: 04/08/16 13:15 Last Admin: 04/08/16 13:35 Dose: 200 mls/hr Cefazolin Sodium/Dextrose 2 gm (/ Premix) 50 mls @ 100 mls/hr IV ONETIME ONE Stop: 04/08/16 13:12 Last Admin: 04/08/16 14:05 Dose: 100 mls/hr Oxytocin/Sodium Chloride (Pitocin In Ns 30 Unit/500 Ml) 30 unit in 500 mls @ 500 mls/hr IV TITRATE GISELLA; 500 MUNITS/MIN PRN Reason: Protocol Last Titration: 04/08/16 18:05 Dose: 0 munits/min, 0 mls/hr Lactated Ringer's (Ringers, Lactated) 1,000 mls @ 125 mls/hr IV ASDIRECTED GISELLA Last Admin: 04/09/16 04:59 Dose: 125 mls/hr Methylergonovine Maleate (Methergine) Confirm Administered Dose 0.2 mg .ROUTE .STK-MED ONE Stop: 04/08/16 14:07 Naloxone HCl (Narcan) 0.1 mg IVPUSH SEECOMMENT PRN PRN Reason: Respiratory Depression Ondansetron HCl (Zofran) 4 mg IV Q4H PRN PRN Reason: Nausea/Vomiting Sodium Chloride (Saline Flush) 10 ml FLUSH ASDIRECTED PRN PRN Reason: Keep Vein Open Last Admin: 04/08/16 16:55 Dose: 10 ml - Interaction Disposition, : transfer to [facility] Infant Interaction: Other (see below) (continues contact with [facility]) Support Person: Mother - Recovery Exam Fundal Tone: Firm Fundal Level: 3 Fingerbreadths Below Umbilicus Fundal Placement: Midline Lochia Amount: Scant Lochia Color: Rubra/Red Perineum Description: Other (see below) (Intact- delivery by ) Episiotomy/Laceration: None Bladder Status: Voiding Urinary Elimination: Voided - Exam General: alert, oriented HEENT: Pupils equal Neck: supple Lungs: Clear to auscultation, Normal respiratory effort Cardiovascular: regular rate, regular rhythm Abdomen: bowel sounds present, soft, no distension, tenderness (around incision) Extremities: no edema Skin: warm, dry, intact Wound/Incisions: healing well, dressing dry and intact Neurological: no new focal deficit Psy/Mental Status: alert, normal affect, normal mood - Problem List & Annotations (1) Placental abruption SNOMED Code(s): 666483535, 934056781 Code(s): O45.90 - PREMATURE SEPARATION OF PLACENTA, UNSP, UNSP TRIMESTER Status: Acute Current Visit: Yes - Problem List Review Problem List Initiated/Reviewed/Updated: Yes - My Orders Last 24 Hours: My Active Orders 04/10/16 08:53 HEMOGLOBIN/HEMATOCRIT,HH [HEME] Routine - Assessment Assessment:: S/P csection day 1. 4 prior vaginal deliveries Placental abruption on U/S Anemia of Diet controlled Gestational Diabetes High risk History of macrosomic deliver Poor weight gain of Chronic back pain Asthma Nuchal Cord on U/S GBS status unknown - Plan Plan:: Patient seen and examined with Rina Nichols MS agree with her note. Also spoke to Gerda about use of anti-depressant medications and she declines at this time. 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
[2016-04-11] MEDS: Acetaminophen/oxyCODONE 325-5 MG Tab PO PRN ×2 (03:29→09:13)
[2016-04-11 08:00] VITALS: BP 93/46
[2016-04-11] MEDS: Docusate Sodium 100 MG Cap PO PRN (09:13)
[2016-04-11] MEDS: Ferrous Sulfate 325 MG Tab PO SCH (09:13)
[2016-04-11] MEDS ORDERED: Oxytocin/Normal Saline 30 UNIT/500 ML BAG IV ONE (11:39)
[2016-04-11] MEDS ORDERED: Morphine PF 5 MG/10 ML SDV IV ONE (11:39)
[2016-04-11] MEDS ORDERED: Furosemide 20 MG/2 ML VIAL IV ONE (11:39)
[2016-04-11] MEDS ORDERED: Ondansetron 4 MG/2 ML SDV IV ONE (11:39)
[2016-04-11] MEDS ORDERED: diphenhydrAMINE 50 MG/ML SDV IV ONE (11:39)
[2016-04-11] MEDS ORDERED: Dexamethasone 4 MG/ML SDV IV ONE (11:39)
[2016-04-11] MEDS ORDERED: Lactated Ringers 1,000 ML IV ONE ×2 (11:39)
--- NOTE | 2016-04-23 02:36 | DISCH ---
ADMITTING DIAGNOSES: 1. A 29-3/7 weeks' gestation by 9-week ultrasound. 2. 5, para 4-0-0-4. 3. Placental abruption. 4. distress with decelerations to the 90s. 5. Anemia of . 6. Gestational diabetes, diet controlled. 7. History of second-trimester bleeding. 8. History of macrosomic infant prior . 9. Poor weight gain this . 10.Asthma. 11.Group B Streptococcus unknown. 12.Blood type O positive. 13.Rubella immune. DISCHARGE DIAGNOSES: 1. A 29-3/7 weeks' gestation by 9-week ultrasound. 2. 5, now para 4-1-0-5. 3. Placental abruption. 4. distress with decelerations to the 90s. 5. Anemia of . 6. Gestational diabetes, diet controlled. 7. History of second-trimester bleeding. 8. History of macrosomic prior . 9. Poor weight gain this . 10.Asthma. 11.Group B Streptococcus unknown. 12.Blood type O positive. 13.Rubella immune. 14.Nuchal cord at delivery. 15.Status post primary low transverse section. 16.Anemia of acute blood loss. 17.Status post blood transfusion of 4 units packed red blood cells. BRIEF HISTORY: A 31-year-old female, presented to the hospital with concerns of abdominal pain and ultimately she was found to have a placental abruption clinically and also having significant problems with distress, although not having any external bleeding. There were concerns for abruption seen on ultrasound plus the monitoring tracing was indicating that the baby was not doing very well and needed to be delivered. Therefore, she was taken to the operating room, and we maintained Doppler of heart tones and we did manage to wait for NICU show up to attend the baby at delivery before Dr. Rudd and I proceeded with primary low transverse section, which was carried out and complicated by intrapartum hemorrhage. Once we entered the uterine cavity, the baby was found to be in breech presentation and ultimately internal cephalad version was performed for successful vertex delivery of the . Mother had significant bleeding noted during the operation with an estimated blood loss of 1950-4728 mL and blood transfusions initiated in the operating room, and continued afterwards. The remainder of the surgical case was uncomplicated and she tolerated it well. HOSPITAL COURSE: She has been ambulating, tolerating regular diet, passing flatus, voiding without difficulties. Bleeding has been well controlled. She has not had any significant symptoms of anemia and she has had her hemoglobin levels checked frequently and admission hemoglobin was 9.4. After the first few units, she was up to 11.1, it decreased later with hemodilution down to 9.3 and she had a final discharge hemoglobin of 10.3. She is managing fairly well. She is naturally depressed because of having had her taken to the NICU. She will be giving the child up to adoption to her father and stepmother and although, this is a very difficult decision for her, she feels that it is in the best interest of the child. She has appreciated her time in the hospital and a break from the real world, seems unfortunate that she has to go back to the way things usually are for her, but she is meeting discharge criteria. DISCHARGE CONDITION: Good. PHYSICAL EXAMINATION: Vital Signs: Have remained stable. Her temperature is 97.6, pulse of 66, blood pressure 93/46, previously had been 120/64. Respiratory rate of 18, O2 saturations 99% on room air. Heart: Regular without obvious murmur. Lungs: Clear to auscultation bilaterally. Skin: Closed with jumana which are intact. There is no active bleeding or strike through drainage. Extremities: Full range of motion. No edema. Noted hemoglobin as listed above. She had a negative urine drug screen that was ordered due to spontaneous abruption, which was part of her main concern on admission. DISCHARGE DISPOSITION: Home with family. Also expected that she will be going down to the intensive care nursery later this weekend to see her daughter. MEDICATIONS: 1. Percocet 5/325 one to two tablets every 4-6 hours as needed for pain. 2. Colace 100 mg twice daily as needed for constipation. 3. Ibuprofen 600 mg every 6 hours as needed for pain. 4. vitamin continue 1 daily. 5. Iron 325 mg twice daily. Discussed with the patient potential use of antidepressant medications and she has declined. FOLLOWUP: She will be seen in the office within the next week for staple removal and postoperative check. Her questions have been answered. Post operative care instructions given. Also discussed to seek care if depression symptoms develop. MOD /[id number] MTDD
== END 2016-04-11 11:40 | disposition home or self-care (01) | DRG 765 ==
LOC: DL.OBCHECK 11:27 → UNDOADMIN 12:43 → DL.OB 12:43
PROVIDERS: ADMIT Family Medicine; ATTEND Family Medicine
PROC: 10D00Z1 Extraction of Products of Conception, Low, Open Approach (ICD-10-PCS; principal; 2016-04-08)
PROC: 4A1HXFZ Monitoring of Products of Conception, Cardiac Rhythm, External Approach (ICD-10-PCS; 2016-04-08)
PROC: 3E0R3BZ Introduction of Anesthetic Agent into Spinal Canal, Percutaneous Approach (ICD-10-PCS; 2016-04-08)
DX: O32.1XX0 Maternal care for breech presentation, not applicable or unspecified (principal); O45.93 Premature separation of placenta, unspecified, third trimester; D62 Acute posthemorrhagic anemia; Z37.0 Single live birth; Z3A.29 29 weeks gestation of pregnancy; O77.9 Labor and delivery complicated by fetal stress, unspecified; O24.420 Gestational diabetes mellitus in childbirth, diet controlled; O90.81 Anemia of the puerperium; O69.81X0 Labor and delivery complicated by cord around neck, without compression, not applicable or unspecified
CPT/HCPCS: 36415; 36430; 51702; 76815; 76819; 80305; 81001; 82274; 83986; 84112; 85014; 85018; 85025; 85027; 86850; 86900; 86901; 86920; 86922; 87210; A9270-GY; J0690; J1100; J1200; J1940; J2274; J2405; J2540; J2590; J3475; J7050; J7120; P9016

== ENCOUNTER 2016-06-21 22:44 | Emergency (ER) | payer MEDICAID ==
[2016-06-22 00:58] VITALS: BP 108/52
--- NOTE | 2016-06-22 02:52 | EDM.PDOC ---
ED HPI Trauma - General Chief Complaint: Lower Extremity Injury/Pain Stated Complaint: COMING ON THEIR OWN, KNEES HURT WITH WEIGHT BEARIN Time Seen by Provider: 06/22/16 02:34 Source: Reports: Patient History Limitations: Reports: No limitations - History of Present Illness INITIAL COMMENTS - FREE TEXT/NARRATIVE: This 31 yo female patient reports to the ED with left lateral knee pain. The patient reports she "caught" her foot on a table while working at [employer] and has had left lateral knee pain since the time of the incident. The patient reports she has been taking Tylenol for the pain. Symptom Onset Date: 06/21/16 Occurred When: this afternoon Occurred Where: work Method of Injury: other Severity: moderate Pain/Injury Location: Reports: lower extremity, left Consciousness: Reports: no loss of consciousness Associated Symptoms: Reports: no other symptoms Allergies/ADRs: Allergies ibuprofen Allergy (Verified 06/22/16 01:03) Rash Home Medications: Ambulatory Orders . [No Known Home Meds] 12/31/14 [Confirmed 06/22/16] Past Medical History HEENT History: Reports: Impaired vision SPOOLER History: Reports: Psychiatric History: Reports: Anxiety, Depression Endocrine/Metabolic History: Reports: Diabetes, gestational Hematologic History: Reports: Anemia Social & Family History - Family History Family Medical History: Unobtainable - Tobacco Use Smoking Status *Q: Never Smoker Years of Tobacco use: 10 Used Tobacco, but Quit: No Month Tobacco Last Used: January Second Hand Smoke Exposure: No - Caffeine Use Caffeine Use: Reports: Coffee, Soda - Alcohol Use Days Per Week of Alcohol Use: 0 - Recreational Drug Use Recreational Drug Use: No Review of Systems - Review of Systems Review Of Systems: ROS reveals no pertinent complaints other than HPI. Trauma Exam - Physical Exam Exam: See Below Exam Limited By: No limitations General Appearance: Reports: alert, WD/WN, moderate distress Head: Reports: atraumatic, normocephalic Eyes: bilateral eye: EOMI, normal inspection, PERRL Ears: Reports: normal external exam, normal canal, hearing grossly normal, normal TMs Nose: Reports: normal inspection, normal mucousa, no blood Throat/Mouth: Reports: Normal inspection, Normal lips, Normal teeth, Normal gums , Normal oropharynx, Normal voice, No airway compromise Neck: Reports: non-tender, full range of motion, normal alignment, normal inspection Respiratory Exam: Reports: no respiratory distress, lungs clear, normal breath sounds Cardiovascular: Reports: normal peripheral pulses, regular rate, rhythm, no edema, no gallop, no JVD, no murmur, no rub GI/Abdominal: Reports: normal bowel sounds, soft, non tender, no organomegaly, no distention, no abnormal bruit, no mass (Female) Exam: Deferred Rectal (Female) Exam: Deferred Back: Reports: full range of motion, normal inspection, non-tender Extremities: Reports: pain with movement (left anterior and lateral knee), unable to bear weight, other (Anterior drawer test resulted in increased pain, but no obvious laxity. The patient had increased pain with stress to the lateral knee. 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, no motor/sensory deficits, alert , normal mood/affect, oriented x 3 Skin: Reports: Normal color, Warm/dry - [place] Coma Score Best Eye Response (Chidi): (4) open spontaneously Best Verbal Response ([place]): (5) oriented Best Motor Response ([place]): (6) obeys commands Chidi Total: 15 Course - Vital Signs Last Recorded V/S: Last Vital Signs Temp 36.9 C 06/22/16 00:53 Pulse 69 06/22/16 00:53 Resp 18 06/22/16 00:53 BP 108/52 L 06/22/16 00:53 Pulse Ox 98 06/22/16 00:53 - Orders/Labs/Meds Orders: Active Orders 24 hr Category Date Time Status Knee 3V Lt [CR] Urgent Exams 06/22/16 01:15 Taken DME for Discharge [COMM] Urgent Oth 06/22/16 02:45 Ordered Departure - Departure Time of Disposition: 02:52 Disposition: Home, Self-Care 01 Condition: fair Clinical Impression: Strain of left knee Qualifiers: Encounter type: initial encounter Qualified Code(s): S86.912A - Strain of unspecified muscle(s) and tendon(s) at lower leg level, left leg, initial encounter Instructions: Knee Sprain, [id number] Forms: ED Department Discharge Care Plan Goals: The patient was advised of the examination and x-ray results during the visit. The patient was placed in a left knee immobilizer and given crutches. The patient was encouraged to rest, ice and elevate her knee over the next 48 hours. If the patient continues to have pain and discomfort, the patient should follow-up with her primary care facility early next week for further evaluation (MRI) and management. - My Orders Last 24 Hours: My Active Orders 06/22/16 01:15 Knee 3V Lt [CR] Urgent 06/22/16 02:45 DME for Discharge [COMM] Urgent - Assessment/Plan Last 24 Hours: My Active Orders 06/22/16 01:15 Knee 3V Lt [CR] Urgent 06/22/16 02:45 DME for Discharge [COMM] Urgent
== END 2016-06-22 02:59 | disposition home or self-care (01) ==
LOC: DL.ED 22:44
DX: S86.912A Strain of unspecified muscle(s) and tendon(s) at lower leg level, left leg, initial encounter (principal); F41.9 Anxiety disorder, unspecified; F32.9 Major depressive disorder, single episode, unspecified; Z86.2 Personal history of diseases of the blood and blood-forming organs and certain disorders involving the immune mechanism; Z88.6 Allergy status to analgesic agent; W23.0XXA Caught, crushed, jammed, or pinched between moving objects, initial encounter; Y99.0 Civilian activity done for income or pay
CPT/HCPCS: 73562-LT; 99283

== ENCOUNTER 2016-09-16 14:37 | Emergency (ER) | payer MEDICAID ==
[2016-09-16] MEDS ORDERED: Ondansetron 4 MG/2 ML SDV IV ONE (14:55)
[2016-09-16] MEDS ORDERED: Sodium Chloride 0.9% 1,000 ML IV ONE (14:55)
[2016-09-16 15:34] LABS: CHLORIDE,CL 109 mmol/L (101-111); SODIUM,NA 140 mmol/L (135-145)
[2016-09-16 16:06] VITALS: BP 112/63
--- NOTE | 2016-09-16 16:10 | EDM.PDOC ---
ED HPI GENERAL MEDICAL PROBLEM - General Chief Complaint: General Stated Complaint: WHOLE BODY BAUTISTA NASANDRADEATED, [id number] Time Seen by Provider: 09/16/16 15:00 Source of Information: Reports: Patient History Limitations: Reports: No Limitations - History of Present Illness INITIAL COMMENTS - FREE TEXT/NARRATIVE: This 31 yo female patient reports to the ED with generalized body aches, sinus congestion, some nausea and a headache. The patient reports she has been experiencing increased pressure in her sinuses over the past 3-4 days with frequent headaches. Tylenol has relieved some of the pain for short amounts of time. 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 Generalized Pain Score (Numeric/FACES): 8 - Related Data Allergies Allergy/AdvReac Type Severity Reaction Status Date / Time ibuprofen Allergy Rash Verified 09/16/16 14:51 Home Meds: Home Meds Desogestrel-Ethinyl Estradiol [Lc 28 Day Tablet] 1 each PO ASDIRECTED 09/16 [History] Past Medical History HEENT History: Reports: 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: Psychiatric History: Reports: Anxiety, Depression Endocrine/Metabolic History: Reports: Diabetes, Gestational Hematologic History: Reports: Anemia Social & Family History - Family History Family Medical History: Unobtainable - Tobacco Use Smoking Status *Q: Never Smoker Years of Tobacco use: 10 Used Tobacco, but Quit: No Month Tobacco Last Used: January Second Hand Smoke Exposure: No - Caffeine Use Caffeine Use: Reports: Coffee - Alcohol Use Days Per Week of Alcohol Use: 0 - Recreational Drug Use Recreational Drug Use: No ED ROS GENERAL - Review of Systems Review Of Systems: ROS reveals no pertinent complaints other than HPI. ED EXAM, GENERAL - Physical Exam Exam: See Below Exam Limited By: No Limitations General Appearance: Alert, WD/WN Eye Exam: Bilateral Eye: EOMI, Normal Inspection, PERRL Ears: Normal External Exam, Normal Canal, Hearing Grossly Normal, Normal TMs Nose: Normal Inspection, Normal Mucosa, No Blood Head: Atraumatic, Sinus Tenderness Neck: Normal Inspection Respiratory/Chest: No Respiratory Distress, Lungs Clear, Normal Breath Sounds, No Accessory Muscle Use, Chest Non-Tender Cardiovascular: Normal Peripheral Pulses, Regular Rate, Rhythm, No Edema, No Gallop, No JVD, No Murmur, No Rub GI/Abdominal: Normal Bowel Sounds, Soft, Non-Tender, No Organomegaly, No Distention, No Abnormal Bruit, No Mass (Female) Exam: Deferred Rectal (Female) Exam: Deferred Back Exam: Normal Inspection, Full Range of Motion, NT Extremities: Normal Inspection, Normal Range of Motion, Non-Tender, Normal Capillary Refill, No Pedal Edema Neurological: Alert, Oriented, CN II-XII Intact, Normal Cognition, Normal Gait, Normal Reflexes, No Motor/Sensory Deficits Psychiatric: Normal Affect, Normal Mood Skin Exam: Warm, Dry, Intact, Normal Color, No Rash Lymphatic: No Adenopathy Course - Vital Signs Last Recorded V/S: Last Vital Signs Temp 36.7 C 09/16/16 16:05 Pulse 65 09/16/16 16:05 Resp 18 09/16/16 16:05 BP 112/63 09/16/16 16:05 Pulse Ox 100 09/16/16 16:05 - Orders/Labs/Meds Orders: Active Orders 24 hr Category Date Time Status CULTURE STREP A CONFIRMATION [] Stat Lab 09/16/16 15:48 Results STREP SCRN A RAPID W CULT CONF [] Stat Lab 09/16/16 15:48 Ordered Labs: Laboratory Tests 09/16/16 09/16/16 09/16/16 Range/Units 15:10 15:10 15:10 WBC 8.1 (5.0-10.0) 10^3/uL RBC 4.12 L (4.2-5.4) 10^6/uL Hgb 12.2 (12.0-16.0) g/dL Hct 37.7 (37.0-47.0) % MCV 91.5 (80-100) fL MCH 29.6 (27.0-34.0) pg MCHC 32.4 L (33.0-35.0) g/dL Plt Count 225 (150-450) 10^3/uL Neut % (Auto) 74.1 (42.2-75.2) % Lymph % (Auto) 19.4 L (20.5-50.1) % [place] % (Auto) 5.7 (2-8) % Eos % (Auto) 0.7 L (1.0-3.0) % Baso % (Auto) 0.1 (0.0-1.0) % Sodium 140 (135-145) mmol/L Potassium 3.4 L (3.6-5.0) mmol/L Chloride 109 (101-111) mmol/L Carbon Dioxide 21.0 (21.0-31.0) mmol/L Anion Gap 13.4 BUN 13 (7-18) mg/dL Creatinine 0.8 (0.6-1.3) mg/dL Est Cr Clr Drug Dosing 106.48 mL/min Estimated GFR (MDRD) > 60 BUN/Creatinine Ratio 16.25 Glucose 91 (74-105) mg/dL Lactic Acid 0.7 (0.5-2.2) mmol/L Calcium 8.5 (8.4-10.2) mg/dl Magnesium 1.8 (1.8-2.5) mg/dL Total Bilirubin 0.6 (0.2-1.0) mg/dL AST 14 (10-42) IU/L ALT 13 (10-60) IU/L Alkaline Phosphatase 44 (42-121) IU/L Total Protein 7.1 (6.7-8.2) g/dl Albumin 3.6 (3.2-5.5) g/dl Globulin 3.5 Albumin/Globulin Ratio 1.03 Amylase 36 (28-100) U/L Lipase 18 L (22-51) U/L Urine Color (YELLOW) Urine Appearance (CLEAR) Urine pH (5.0-9.0) Ur Specific [place] (1.005-1.030) Urine Protein (NEGATIVE) Urine Glucose (UA) (NEGATIVE) Urine Ketones (NEGATIVE) Urine Occult Blood (NEGATIVE) Urine Nitrite (NEGATIVE) Urine Bilirubin (NEGATIVE) Urine Urobilinogen (0.2-1.0) mg/dL Ur Leukocyte Esterase (NEGATIVE) Urine RBC /HPF Urine WBC (0-5/HPF) /HPF Ur Epithelial Cells /HPF Urine Bacteria (0-FEW/HPF) /HPF Urine Mucus /LPF Urine Opiates Screen (NEGATIVE) Ur Oxycodone Screen (NEGATIVE) Urine Methadone Screen (NEGATIVE) Ur Barbiturates Screen (NEGATIVE) U Tricyclic Antidepress (NEGATIVE) Ur Phencyclidine Scrn (NEGATIVE) Ur Amphetamine Screen (NEGATIVE) U Methamphetamines Scrn (NEGATIVE) Urine MDMA Screen (NEGATIVE) U Benzodiazepines Scrn (NEGATIVE) Urine Cocaine Screen (NEGATIVE) U Marijuana (THC) Screen (NEGATIVE) Ethyl Alcohol < 5 mg/dL 09/16/16 09/16/16 Range/Units 15:30 15:30 WBC (5.0-10.0) 10^3/uL RBC (4.2-5.4) 10^6/uL Hgb (12.0-16.0) g/dL Hct (37.0-47.0) % MCV (80-100) fL MCH (27.0-34.0) pg MCHC (33.0-35.0) g/dL Plt Count (150-450) 10^3/uL Neut % (Auto) (42.2-75.2) % Lymph % (Auto) (20.5-50.1) % [place] % (Auto) (2-8) % Eos % (Auto) (1.0-3.0) % Baso % (Auto) (0.0-1.0) % Sodium (135-145) mmol/L Potassium (3.6-5.0) mmol/L Chloride (101-111) mmol/L Carbon Dioxide (21.0-31.0) mmol/L Anion Gap BUN (7-18) mg/dL Creatinine (0.6-1.3) mg/dL Est Cr Clr Drug Dosing mL/min Estimated GFR (MDRD) BUN/Creatinine Ratio Glucose (74-105) mg/dL Lactic Acid (0.5-2.2) mmol/L Calcium (8.4-10.2) mg/dl Magnesium (1.8-2.5) mg/dL Total Bilirubin (0.2-1.0) mg/dL AST (10-42) IU/L ALT (10-60) IU/L Alkaline Phosphatase (42-121) IU/L Total Protein (6.7-8.2) g/dl Albumin (3.2-5.5) g/dl Globulin Albumin/Globulin Ratio Amylase (28-100) U/L Lipase (22-51) U/L Urine Color Yellow (YELLOW) Urine Appearance Slightly cloudy (CLEAR) Urine pH 5.5 (5.0-9.0) Ur Specific [place] 1.025 (1.005-1.030) Urine Protein Trace H (NEGATIVE) Urine Glucose (UA) Negative (NEGATIVE) Urine Ketones Negative (NEGATIVE) Urine Occult Blood Negative (NEGATIVE) Urine Nitrite Negative (NEGATIVE) Urine Bilirubin Negative (NEGATIVE) Urine Urobilinogen 0.2 (0.2-1.0) mg/dL Ur Leukocyte Esterase Trace H (NEGATIVE) Urine RBC 0-5 /HPF Urine WBC 5-10 H (0-5/HPF) /HPF Ur Epithelial Cells Moderate H /HPF Urine Bacteria Moderate H (0-FEW/HPF) /HPF Urine Mucus Many H /LPF Urine Opiates Screen Negative (NEGATIVE) Ur Oxycodone Screen Negative (NEGATIVE) Urine Methadone Screen Negative (NEGATIVE) Ur Barbiturates Screen Negative (NEGATIVE) U Tricyclic Antidepress Negative (NEGATIVE) Ur Phencyclidine Scrn Negative (NEGATIVE) Ur Amphetamine Screen Negative (NEGATIVE) U Methamphetamines Scrn Negative (NEGATIVE) Urine MDMA Screen Negative (NEGATIVE) U Benzodiazepines Scrn Negative (NEGATIVE) Urine Cocaine Screen Negative (NEGATIVE) U Marijuana (THC) Screen Negative (NEGATIVE) Ethyl Alcohol mg/dL Meds: Medications Discontinued Medications Generic Name Dose Route Start Last Admin Trade Name Freq PRN Reason Stop Dose Admin Sodium Chloride 1,000 mls @ 999 mls/hr 09/16/16 14:55 09/16/16 15:12 Normal Saline IV 09/16/16 15:55 999 mls/hr .BOLUS ONE Administration Ondansetron HCl 4 mg 09/16/16 14:55 09/16/16 15:12 Zofran IV 09/16/16 14:56 4 mg ONETIME ONE Administration Departure - Departure Time of Disposition: 16:08 Disposition: Home, Self-Care 01 Condition: Fair Clinical Impression: Sinusitis Qualifiers: Sinusitis location: maxillary Chronicity: acute Recurrence: non-recurrent Qualified Code(s): J01.00 - Acute maxillary sinusitis, unspecified - Discharge Information Instructions: Sinusitis, Adult, [id number] Forms: ED Department Discharge Care Plan Goals: The patient was advised of the examination and lab results during the visit. The patient was given a dose of Zofran and IV fluids while in the ED. The patient was discharged with a script for Azithromycin (250 mg) #6 to take 2 by mouth on day 1 and 1 by mouth on days 2-5. If the patient has any additional symptoms or concerns, the patient should follow-up with her primary care facility or return to the ED. - My Orders Last 24 Hours: My Active Orders 09/16/16 15:48 CULTURE STREP A CONFIRMATION [RM] Stat STREP SCRN A RAPID W CULT CONF [RM] Stat - Assessment/Plan Last 24 Hours: My Active Orders 09/16/16 15:48 CULTURE STREP A CONFIRMATION [RM] Stat STREP SCRN A RAPID W CULT CONF [RM] Stat
== END 2016-09-16 16:30 | disposition home or self-care (01) ==
LOC: DL.ED 14:37
DX: J01.00 Acute maxillary sinusitis, unspecified (principal); F41.9 Anxiety disorder, unspecified; F32.9 Major depressive disorder, single episode, unspecified; Z88.6 Allergy status to analgesic agent
CPT/HCPCS: 36415; 80053; 80305; 81001; 82150; 83605; 83690; 83735; 85025; 87081; 87430; 96361; 96374; 99283; G0480; J2405; J7030

== ENCOUNTER 2016-10-19 19:06 | Emergency (ER) | payer MEDICAID, OTHER ==
[2016-10-19] MEDS ORDERED: Acetaminophen/oxyCODONE 325-5 MG Tab PO ONE (19:07)
[2016-10-19] MEDS ORDERED: Cyclobenzaprine 10 MG Tab PO ONE (19:07)
[2016-10-19] MEDS ORDERED: HYDROmorphone 1 MG/ML Syringe IVPUSH ONE (19:12)
[2016-10-19] MEDS ORDERED: Ondansetron 4 MG/2 ML SDV IV ONE (19:12)
--- NOTE | 2016-10-19 19:15 | EDM.PDOC ---
ED HPI GENERAL MEDICAL PROBLEM - General Chief Complaint: Lower Extremity Injury/Pain Time Seen by Provider: 10/19/16 19:14 Source of Information: Reports: Patient, EMS History Limitations: Reports: No Limitations - History of Present Illness INITIAL COMMENTS - FREE TEXT/NARRATIVE: ED via [facility] with c/o right hip pain after slipping and falling while at work at [email or web address]. Patient notes previous fall 3 weeks ago at home and seen at [facility] with xrays and was told she had hairline fx to right hip. Patient describes todays fall with turning around and slipped on ice chip that had fallen out of ice machine, landed directly on right hip, and right arm, Did not strike head, mild discomfort to right arm and shoulder. 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: Psychiatric History: Reports: Anxiety, Depression Endocrine/Metabolic History: Reports: Diabetes, Gestational Hematologic History: Reports: Anemia Social & Family History - Family History Family Medical History: Unobtainable - Tobacco Use Smoking Status *Q: Never Smoker Years of Tobacco use: 10 Used Tobacco, but Quit: No Month Tobacco Last Used: January Second Hand Smoke Exposure: No - Caffeine Use Caffeine Use: Reports: Coffee - Alcohol Use Days Per Week of Alcohol Use: 0 - Recreational Drug Use Recreational Drug Use: No Review of Systems - Review of Systems Review Of Systems: ROS reveals no pertinent complaints other than HPI. ED EXAM, GENERAL - Physical Exam Exam: See Below Exam Limited By: No Limitations General Appearance: Alert, Mild Distress (with palpation of right hip) Eye Exam: Bilateral Eye: EOMI Ears: Normal External Exam Nose: Normal Inspection Throat/Mouth: Normal Inspection Head: Atraumatic, Normocephalic Neck: Normal Inspection, Full Range of Motion Respiratory/Chest: No Respiratory Distress, Lungs Clear, Normal Breath Sounds Cardiovascular: Normal Peripheral Pulses, Regular Rate, Rhythm GI/Abdominal: Normal Bowel Sounds, Soft, Non-Tender Extremities: Arm Pain (right shoulder, full ROM, no bruising), Limited Range of Motion (right hip). No: Normal Range of Motion Neurological: Alert, Oriented, Normal Cognition Psychiatric: Normal Affect, Normal Mood Skin Exam: Warm, Dry, Intact, Normal Color Course - Vital Signs Last Recorded V/S: Last Vital Signs Temp 96.2 F 10/19/16 19:08 Pulse 70 10/19/16 19:45 Resp 14 10/19/16 19:45 BP 114/62 10/19/16 19:45 Pulse Ox 98 10/19/16 19:45 - Orders/Labs/Meds Meds: Medications Discontinued Medications Generic Name Dose Route Start Last Admin Trade Name Freq PRN Reason Stop Dose Admin Cyclobenzaprine HCl Confirm 10/19/16 20:25 10/19/16 20:47 Flexeril Administered 10/19/16 20:26 Not Given Dose 10 mg .ROUTE .STK-MED ONE Hydromorphone HCl 1 mg 10/19/16 19:12 10/19/16 19:30 Dilaudid IVPUSH 10/19/16 19:13 1 mg ONETIME ONE Administration Ondansetron HCl 4 mg 10/19/16 19:12 10/19/16 19:29 Zofran IV 10/19/16 19:13 4 mg ONETIME ONE Administration Oxycodone/Acetaminophen Confirm 10/19/16 20:25 10/19/16 20:47 Percocet 325-5 Mg Administered 10/19/16 20:26 Not Given Dose 1 tab .ROUTE .STK-MED ONE Oxycodone/Acetaminophen Confirm 10/19/16 20:30 10/19/16 20:48 Percocet 325-5 Mg Administered 10/19/16 20:31 Not Given Dose 1 tab .ROUTE .STK-MED ONE - Radiology Interpretation Free Text/Narrative:: CT pelvis negative - Re-Assessments/Exams Free Text/Narrative Re-Assessment/Exam: 10/19/16 20:23 Discussed finding with patient and SO. Recommendation to follow up in clinic. Flexeril and percocet initally for pain management then tylenol as needed Departure - Departure Time of Disposition: 20:14 Disposition: Home, Self-Care 01 Condition: Good Clinical Impression: Contusion of hip - Discharge Information Instructions: Hip Pain Forms: ED Department Discharge Additional Instructions: Crutches weight bearing as tolerated flexeril 10mg one every 8 hours as needed for severe pain/muscle spasm #8 percocet 5/325 one every 6 hours as needed for severe pain #8 follow up in clinic on Friday, if continued pain recommend MRI to rule out fracture
[2016-10-19 19:50] VITALS: BP 114/62
[2016-10-19] MEDS ORDERED: Acetaminophen/oxyCODONE 325-5 MG Tab ONE ×2 (20:25→20:30)
[2016-10-19] MEDS ORDERED: Cyclobenzaprine 10 MG Tab ONE (20:25)
== END 2016-10-19 20:40 | disposition home or self-care (01) ==
LOC: DL.ED 19:06
DX: S70.01XA Contusion of right hip, initial encounter (principal); Z86.2 Personal history of diseases of the blood and blood-forming organs and certain disorders involving the immune mechanism; Z88.6 Allergy status to analgesic agent; W00.2XXA Other fall from one level to another due to ice and snow, initial encounter; Y99.0 Civilian activity done for income or pay
CPT/HCPCS: 72192; 96374; 96375; 99284; J1170; J2405; A9270-GY

== ENCOUNTER 2016-11-03 10:29 | Emergency (ER) | payer MEDICAID, OTHER ==
[2016-11-03 11:04] VITALS: BP 101/58
[2016-11-03] MEDS ORDERED: Acetaminophen 500 MG Tab PO ONE (11:13)
[2016-11-03] MEDS ORDERED: Lidocaine 5% 700 MG Patch TOP ONE (11:13)
--- NOTE | 2016-11-03 11:22 | EDM.PDOC ---
ED HPI GENERAL MEDICAL PROBLEM - General Chief Complaint: Lower Extremity Injury/Pain Stated Complaint: [id number] RIGHT HIP INJURED BEFORE Time Seen by Provider: 11/03/16 11:12 Source of Information: Reports: Patient History Limitations: Reports: No Limitations - History of Present Illness INITIAL COMMENTS - FREE TEXT/NARRATIVE: 31 yo [place] Female c/o right hip pain since fall approx.in September 2016. Pt. states painful when working last pm. 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 of Rt. hip 3 wks ago. Psychiatric History: Reports: Anxiety, Depression Endocrine/Metabolic History: Reports: Diabetes, Gestational Hematologic History: Reports: Anemia Social & Family History - Family History Family Medical History: Unobtainable - Tobacco Use Smoking Status *Q: Never Smoker Years of Tobacco use: 10 Packs/Tins Daily: 0.1 Used Tobacco, but Quit: No Month Tobacco Last Used: January Second Hand Smoke Exposure: No - Caffeine Use Caffeine Use: Reports: Coffee - Alcohol Use Days Per Week of Alcohol Use: 0 - Recreational Drug Use Recreational Drug Use: No Review of Systems - Review of Systems Review Of Systems: See Below Constitutional: Reports: No Symptoms Eyes: Reports: No Symptoms Ears: Reports: No Symptoms Nose: Reports: No Symptoms Mouth/Throat: Reports: No Symptoms Respiratory: Reports: No Symptoms Cardiovascular: Reports: No Symptoms GI/Abdominal: Reports: No Symptoms Genitourinary: Reports: No Symptoms Musculoskeletal: Reports: Joint Pain (right hip) Skin: Reports: No Symptoms Neurological: Reports: No Symptoms Psychiatric: Reports: No Symptoms ED EXAM, GENERAL - Physical Exam Exam: See Below Exam Limited By: No Limitations General Appearance: Alert, WD/WN, No Apparent Distress Eye Exam: Bilateral Eye: EOMI Ears: Normal External Exam Nose: Normal Inspection Throat/Mouth: Normal Inspection Head: Atraumatic Neck: Normal Inspection Respiratory/Chest: No Respiratory Distress Cardiovascular: Normal Peripheral Pulses, Regular Rate, Rhythm Peripheral Pulses: 2+: Femoral (L), Femoral (R) GI/Abdominal: Normal Bowel Sounds Back Exam: Normal Inspection Extremities: Other (right hip joint area w/ tenderness on palpation) Neurological: Alert, Oriented, CN II-XII Intact Psychiatric: Normal Affect, Normal Mood Skin Exam: Warm, Dry, Intact, Normal Color, No Rash Lymphatic: No Adenopathy Course - Vital Signs Last Recorded V/S: Last Vital Signs Temp 37.3 C 11/03/16 10:49 Pulse 66 11/03/16 10:49 Resp 16 11/03/16 10:49 BP 101/58 L 11/03/16 10:49 Pulse Ox 99 11/03/16 10:49 Departure - Departure Time of Disposition: 11:16 Disposition: Home, Self-Care 01 Condition: Good Clinical Impression: Contusion of hip, right Qualifiers: Encounter type: subsequent encounter Qualified Code(s): S70.01XD - Contusion of right hip, subsequent encounter - Discharge Information Additional Instructions: Your Hip CT scan of 10/19/2016 report is Normal Due to your allergy to Motrin Please take Tylenol ES 500mg every hours as needed Apply the pain patch ( Lidoderm 5%) as directed ( 12 hours on and 12 hours off) #10 F/U w/ PCP for re-evaluation
== END 2016-11-03 11:55 | disposition home or self-care (01) ==
LOC: DL.ED 10:29
DX: S70.01XD Contusion of right hip, subsequent encounter (principal); Z86.2 Personal history of diseases of the blood and blood-forming organs and certain disorders involving the immune mechanism; F32.9 Major depressive disorder, single episode, unspecified; Z88.6 Allergy status to analgesic agent; W19.XXXD Unspecified fall, subsequent encounter; Y99.0 Civilian activity done for income or pay
CPT/HCPCS: 99283; A9270

== ENCOUNTER 2017-03-09 15:19 | Emergency (ER) | payer MEDICAID ==
[2017-03-09 20:21] VITALS: BP 120/64
[2017-03-09] MEDS ORDERED: Penicillin G Benzathine/Procaine 600-600 1.2 Millunits/2 ML Syringe IM ONE (20:54)
--- NOTE | 2017-03-09 20:59 | EDM.PDOC ---
ED HPI GENERAL MEDICAL PROBLEM - General Chief Complaint: General Stated Complaint: SICK [id number] Time Seen by Provider: 03/09/17 20:55 Source of Information: Reports: Patient History Limitations: Reports: No Limitations - History of Present Illness INITIAL COMMENTS - FREE TEXT/NARRATIVE: sore throat F/C past few days getting worse today Generalized Pain Score (Numeric/FACES): 5 - Related Data Allergies Allergy/AdvReac Type Severity Reaction Status Date / Time ibuprofen Allergy Rash Verified 10/19/16 19:20 Home Meds: Home Meds Desogestrel-Ethinyl Estradiol [ 28 Day Tablet] 1 each PO ASDIRECTED 09/16 [History] Past Medical History HEENT History: Reports: Impaired Vision Cardiovascular History: Reports: None Respiratory History: Reports: None Gastrointestinal History: Reports: None Genitourinary History: Reports: 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 of Rt. hip 3 wks ago. Neurological History: Reports: None Psychiatric History: Reports: Anxiety, Depression Endocrine/Metabolic History: Reports: Diabetes, Gestational Hematologic History: Reports: Anemia Immunologic History: Reports: None Oncologic (Cancer) History: Reports: None Dermatologic History: Reports: None - Infectious Disease History Infectious Disease History: Reports: None - Past Surgical History Cardiovascular Surgical History: Reports: None Respiratory Surgical History: Reports: None GI Surgical History: Reports: None Female Surgical History: Reports: None Neurological Surgical History: Reports: None Dermatological Surgical History: Reports: None Social & Family History - Family History Family Medical History: Unobtainable - Tobacco Use Smoking Status *Q: Never Smoker Years of Tobacco use: 10 Packs/Tins Daily: 0.1 Used Tobacco, but Quit: No Month Tobacco Last Used: January Second Hand Smoke Exposure: No - Caffeine Use Caffeine Use: Reports: Coffee - Alcohol Use Days Per Week of Alcohol Use: 0 - Recreational Drug Use Recreational Drug Use: No ED ROS GENERAL - Review of Systems Review Of Systems: ROS reveals no pertinent complaints other than HPI. ED EXAM, GENERAL - Physical Exam Exam: See Below Exam Limited By: No Limitations General Appearance: Alert, WD/WN, Moderate Distress, Other (discomfort) Ear Exam: Bilateral Ear: TM Dull Nose: Clear Rhinorrhea Throat/Mouth: Inflammation, Other (purulent tonsillitis right>) Head: Atraumatic Neck: Non-Tender, Full Range of Motion, Lymphadenopathy (L), Lymphadenopathy (R) Respiratory/Chest: No Respiratory Distress Cardiovascular: Regular Rate, Rhythm GI/Abdominal: Soft, Non-Tender Neurological: Alert, Oriented, Normal Cognition, Normal Gait, No Motor/Sensory Deficits Psychiatric: Flat Affect Skin Exam: Warm, Dry, Normal Color Lymphatic: Other (cervical) Course - Vital Signs Last Recorded V/S: Last Vital Signs Temp 36.9 C 03/09/17 20:20 Pulse 73 03/09/17 21:12 Resp 18 03/09/17 21:12 BP 120/64 03/09/17 20:20 Pulse Ox 100 03/09/17 21:12 - Orders/Labs/Meds Orders: Active Orders 24 hr Category Date Time Status CULTURE STREP A CONFIRMATION [] Stat Lab 03/09/17 16:18 Results STREP SCRN A RAPID W CULT CONF [] Stat Lab 03/09/17 16:18 Results Meds: Medications Discontinued Medications Generic Name Dose Route Start Last Admin Trade Name Torin PRN Reason Stop Dose Admin Penicillin G Procaine/Benzathine 1.2 millunits 03/09/17 20:54 03/09/17 21:02 Bicillin C-R 600/600 IM 03/09/17 20:55 1.2 millunits ONETIME ONE Administration Departure - Departure Time of Disposition: 21:10 Disposition: Home, Self-Care 01 Condition: Good Clinical Impression: Tonsillitis with exudate - Discharge Information Instructions: Tonsillitis, [id number] Referrals: PCP,None [Ordering Only Provider] - Forms: ED Department Discharge Additional Instructions: 1) no solid foods next 48 hours 2) have liquid diet 3) take tylenol or motrin for fever and body aches 4) recheck as needed
== END 2017-03-09 21:14 | disposition home or self-care (01) ==
LOC: DL.ED 15:19
DX: J03.90 Acute tonsillitis, unspecified (principal); F32.9 Major depressive disorder, single episode, unspecified; Z88.6 Allergy status to analgesic agent
CPT/HCPCS: 87081; 87430; 87804; 96372; 99283; J0558

== ENCOUNTER 2017-04-28 15:23 | Emergency (ER) | payer MEDICAID ==
[2017-04-28 15:33] VITALS: BP 110/54
[2017-04-28] MEDS ORDERED: Penicillin G Benzathine/Procaine 600-600 1.2 Millunits/2 ML Syringe IM ONE (16:01)
--- NOTE | 2017-04-28 16:24 | EDM.PDOC ---
Scribed by Krystyna Benson 04/28/17 1623 for Ihsan Chang MD ED HPI GENERAL MEDICAL PROBLEM - General Chief Complaint: Abdominal Pain Stated Complaint: [id number] NOT FEELING WELL Time Seen by Provider: 04/28/17 15:36 Source of Information: Reports: Patient, RN, RN Notes Reviewed History Limitations: Reports: No Limitations - History of Present Illness INITIAL COMMENTS - FREE TEXT/NARRATIVE: Patient complains of onset on Friday of frontal headache. Frequent chills, nausea and epigastric pain. Mild dry cough and mild diarrhea. Denies vomiting. Onset Date: 04/25/17 Duration: Getting Worse Location: Reports: Head Quality: Reports: Ache Severity: Moderate Improves with: Reports: None Worsens with: Reports: None Associated Symptoms: Reports: No Other Symptoms Middle Abdomen Pain Score (Numeric/FACES): 6 - Related Data Allergies Allergy/AdvReac Type Severity Reaction Status Date / Time ibuprofen Allergy Rash Verified 04/28/17 15:32 Home Meds: Home Meds Desogestrel-Ethinyl Estradiol [Lcer 28 Day Tablet] 1 each PO ASDIRECTED 09/16 [History] Past Medical History HEENT History: Reports: Impaired Vision Cardiovascular History: Reports: None Respiratory History: Reports: None Gastrointestinal History: Reports: None Genitourinary History: Reports: None 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 of Rt. hip 3 wks ago. Neurological History: Reports: None Psychiatric History: Reports: Anxiety, Depression Endocrine/Metabolic History: Reports: Diabetes, Gestational Hematologic History: Reports: Anemia Immunologic History: Reports: None Oncologic (Cancer) History: Reports: None Dermatologic History: Reports: None - Infectious Disease History Infectious Disease History: Reports: None - Past Surgical History Head Surgeries/Procedures: Reports: None Cardiovascular Surgical History: Reports: None Respiratory Surgical History: Reports: None GI Surgical History: Reports: None Female Surgical History: Reports: None Neurological Surgical History: Reports: None Dermatological Surgical History: Reports: None Social & Family History - Family History Family Medical History: Unobtainable - Tobacco Use Smoking Status *Q: Never Smoker Years of Tobacco use: 10 Packs/Tins Daily: 0.1 Used Tobacco, but Quit: No Month Tobacco Last Used: January Second Hand Smoke Exposure: No - Caffeine Use Caffeine Use: Reports: Coffee - Alcohol Use Days Per Week of Alcohol Use: 0 - Recreational Drug Use Recreational Drug Use: No ED ROS GENERAL - Review of Systems Review Of Systems: ROS reveals no pertinent complaints other than HPI. ED EXAM, GI/ABD - Physical Exam Exam: See Below Exam Limited By: No Limitations General Appearance: Obese Eyes: Bilateral: Normal Appearance Ears: Normal TMs (bilateral) Nose: Other (nasalmucus inflammation left greater than right with mild congestion and yellow mucus.) Throat/Mouth: Other (Tonsillar swelling and erythema. No exudates. Mild pharyngeal erythema.) Head: Atraumatic, Normocephalic Neck: Other (shoddy cervical lymphadenopathy) Respiratory/Chest: No Respiratory Distress, Lungs Clear, Normal Breath Sounds, No Accessory Muscle Use, Chest Non-Tender Cardiovascular: Normal Peripheral Pulses, Regular Rate, Rhythm, No Edema, No Gallop, No JVD, No Murmur, No Rub GI/Abdominal Exam: Other (mild epigastric pain.) (Female) Exam: Deferred Rectal (Female) Exam: Deferred Back Exam: Normal Inspection, Full Range of Motion, NT Extremities: Normal Inspection, Normal Range of Motion, Non-Tender, Normal Capillary Refill, No Pedal Edema Neurological: Alert, Oriented, CN II-XII Intact, Normal Cognition, Normal Gait, Normal Reflexes, No Motor/Sensory Deficits Psychiatric: Normal Affect, Normal Mood Skin Exam: Warm, Dry, Intact, Normal Color, No Rash Course - Vital Signs Last Recorded V/S: Last Vital Signs Temp 36.9 C 04/28/17 15:28 Pulse 74 04/28/17 15:28 Resp 16 04/28/17 15:28 BP 110/54 L 04/28/17 15:28 Pulse Ox 100 04/28/17 15:28 - Orders/Labs/Meds Labs: Rapid strep: Positive. Meds: Medications Discontinued Medications Generic Name Dose Route Start Last Admin Trade Name Freq PRN Reason Stop Dose Admin Penicillin G Procaine/Benzathine 1.2 millunits 04/28/17 16:01 04/28/17 16:21 Bicillin C-R 600/600 IM 04/28/17 16:02 1.2 millunits ONETIME ONE Administration Departure - Departure Time of Disposition: 16:20 Disposition: Home, Self-Care 01 Condition: Good Clinical Impression: Strep pharyngitis, Tonsillitis - Discharge Information Instructions: Strep Throat, [id number] Forms: ED Department Discharge Additional Instructions: RX: Zithromax 250mg. Frequent salt water gargles until symptoms improve. Follow up in clinic if not improved in 2 days. I have read and agree with the documentation that has been completed regarding this visit. By signing this record, I attest that the documentation was completed in my physical presence and is an accurate record of the encounter.
== END 2017-04-28 16:28 | disposition home or self-care (01) ==
LOC: DL.ED 15:23
DX: J03.90 Acute tonsillitis, unspecified (principal); Z88.6 Allergy status to analgesic agent
CPT/HCPCS: 87430; 96372; 99282; J0558

== ENCOUNTER 2017-06-07 10:22 | Emergency (ER) | payer MEDICAID ==
[2017-06-07] MEDS ORDERED: Sodium Chloride 0.9% 1,000 ML IV ONE (10:47)
[2017-06-07] MEDS ORDERED: diphenhydrAMINE 50 MG/ML SDV IVPUSH ONE (10:47)
[2017-06-07 11:32] LABS: CHLORIDE,CL 107 mmol/L (101-111); SODIUM,NA 137 mmol/L (135-145)
[2017-06-07] MEDS ORDERED: Cyclobenzaprine 10 MG Tab PO ONE (12:12)
[2017-06-07] MEDS ORDERED: Acetaminophen/oxyCODONE 325-5 MG Tab PO ONE (12:13)
[2017-06-07 12:17] VITALS: BP 110/59
--- NOTE | 2017-06-10 04:32 | EDM.PDOC ---
Scribed by Krystyna Benson 06/07/17 1138 for Gabbie Camacho PA-C ED HPI GENERAL MEDICAL PROBLEM - General Chief Complaint: Headache Stated Complaint: BY AMBULANCE Time Seen by Provider: 06/07/17 10:42 Source of Information: Reports: Patient, RN, RN Notes Reviewed History Limitations: Reports: No Limitations - History of Present Illness INITIAL COMMENTS - FREE TEXT/NARRATIVE: Patient presented with a migraine. She has nausea and vomiting since A.M.She presented with [facility]. She woke with headache at 0700 with vomiting x4. She has no blurry vision or sinus problem. Zofran was given per EMS an nausea is better. She has a history of headache but last one was about 3 years ago. That was worse but similar. 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: Reports: Other Medication(s) Other Treatments [employer]WILL AMBASSADOR: Zofran, IV start Head Pain Score (Numeric/FACES): 9 - Related Data Allergies Allergy/AdvReac Type Severity Reaction Status Date / Time ibuprofen Allergy Rash Verified 04/28/17 15:32 Home Meds: Home Meds Desogestrel-Ethinyl Estradiol [Juleber 28 Day Tablet] 1 each PO ASDIRECTED 09/16 [History] Past Medical History - Past Health History Medical/Surgical History: Denies Medical/Surgical History HEENT History: Reports: Impaired Vision Cardiovascular History: Reports: None Respiratory History: Reports: None Gastrointestinal History: Reports: None Genitourinary History: Reports: None [employer]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 of Rt. hip 3 wks ago. Neurological History: Reports: None Psychiatric History: Reports: Anxiety, Depression Endocrine/Metabolic History: Reports: Diabetes, Gestational Hematologic History: Reports: Anemia Immunologic History: Reports: None Oncologic (Cancer) History: Reports: None Dermatologic History: Reports: None - Infectious Disease History Infectious Disease History: Reports: None - Past Surgical History Head Surgeries/Procedures: Reports: None Cardiovascular Surgical History: Reports: None Respiratory Surgical History: Reports: None GI Surgical History: Reports: None Female Surgical History: Reports: None Neurological Surgical History: Reports: None Dermatological Surgical History: Reports: None Social & Family History - Family History Family Medical History: Noncontributory - Tobacco Use Smoking Status *Q: Never Smoker Years of Tobacco use: 10 Packs/Tins Daily: 0.1 Used Tobacco, but Quit: No Month/Year Tobacco Last Used: January Second Hand Smoke Exposure: No - Caffeine Use Caffeine Use: Reports: Coffee, Soda, Tea - Alcohol Use Days Per Week of Alcohol Use: 0 - Recreational Drug Use Recreational Drug Use: No ED ROS GENERAL - Review of Systems Review Of Systems: ROS reveals no pertinent complaints other than HPI. - Physical Exam Exam: See Below Exam Limited By: No Limitations General Appearance: Alert Eye Exam: Bilateral Eye: EOMI, PERRL Ears: Normal External Exam, Normal Canal, Hearing Grossly Normal, Normal TMs Nose: Normal Inspection, Normal Mucosa, No Blood Throat/Mouth: Normal Inspection, Normal Lips, Normal Teeth, Normal Gums, Normal Oropharynx, Normal Voice, No Airway Compromise Head Exam: Atraumatic, Normocephalic, Other (occipital tenderness) Neck: Normal Inspection, Supple, Non-Tender, Full Range of Motion Respiratory/Chest: No Respiratory Distress, Lungs Clear, Normal Breath Sounds, No Accessory Muscle Use, Chest Non-Tender Cardiovascular: Normal Peripheral Pulses, Regular Rate, Rhythm, No Edema, No Gallop, No JVD, No Murmur, No Rub GI/Abdominal: Other (bowelsounds x4 and nontender.) Neuro Exam (Abbreviated): Alert, Oriented, Normal Cognition, Other (dizzy with eye movement.) Back Exam: Normal Inspection, Full Range of Motion, NT Extremities: Normal Inspection Psychiatric: Flat Affect Skin Exam: Warm, Dry, Intact, Normal Color, No Rash Course - Vital Signs Last Recorded V/S: Last Vital Signs Temp 97.7 F 06/07/17 10:22 Pulse 65 06/07/17 12:00 Resp 14 06/07/17 12:00 BP 110/59 L 06/07/17 12:00 Pulse Ox 98 06/07/17 12:00 - Orders/Labs/Meds Labs: Laboratory Tests 06/07/17 06/07/17 06/07/17 Range/Units 11:07 11:07 12:31 WBC 8.8 (5.0-10.0) 10^3/uL RBC 4.34 (4.2-5.4) 10^6/uL Hgb 12.7 (12.0-16.0) g/dL Hct 38.8 (37.0-47.0) % MCV 89.4 (80-100) fL MCH 29.3 (27.0-34.0) pg MCHC 32.7 L (33.0-35.0) g/dL Plt Count 237 (150-450) 10^3/uL Neut % (Auto) 84.4 H (42.2-75.2) % Lymph % (Auto) 9.4 L (20.5-50.1) % [place] % (Auto) 5.0 (2-8) % Eos % (Auto) 0.9 L (1.0-3.0) % Baso % (Auto) 0.3 (0.0-1.0) % Sodium 137 (135-145) mmol/L Potassium 3.8 (3.6-5.0) mmol/L Chloride 107 (101-111) mmol/L Carbon Dioxide 24.0 (21.0-31.0) mmol/L Anion Gap 9.8 BUN 15 (7-18) mg/dL Creatinine 0.5 L (0.6-1.3) mg/dL Est Cr Clr Drug Dosing 168.81 mL/min Estimated GFR (MDRD) > 60 BUN/Creatinine Ratio 30.00 Glucose 98 (74-105) mg/dL Calcium 8.9 (8.4-10.2) mg/dl Total Bilirubin 0.8 (0.2-1.0) mg/dL AST 22 (10-42) IU/L ALT 23 (10-60) IU/L Alkaline Phosphatase 68 (42-121) IU/L Total Protein 7.7 (6.7-8.2) g/dl Albumin 3.8 (3.2-5.5) g/dl Globulin 3.9 Albumin/Globulin Ratio 0.97 Urine Color Red (YELLOW) Urine Appearance Cloudy (CLEAR) Urine pH 7.5 (5.0-9.0) Ur Specific [place] 1.020 (1.005-1.030) Urine Protein Negative (NEGATIVE) Urine Glucose (UA) Negative (NEGATIVE) Urine Ketones Negative (NEGATIVE) Urine Occult Blood Large H (NEGATIVE) Urine Nitrite Negative (NEGATIVE) Urine Bilirubin Negative (NEGATIVE) Urine Urobilinogen 0.2 (0.2-1.0) mg/dL Ur Leukocyte Esterase Negative (NEGATIVE) Urine RBC Packed H /HPF Urine WBC 0-5 (0-5/HPF) /HPF Ur Epithelial Cells Moderate H /HPF Urine Bacteria Rare (0-FEW/HPF) /HPF Meds: Medications Discontinued Medications Generic Name Dose Route Start Last Admin Trade Name Freq PRN Reason Stop Dose Admin Cyclobenzaprine HCl 10 mg 06/07/17 12:12 06/07/17 12:22 Flexeril PO 06/07/17 12:13 10 mg ONETIME ONE Administration Diphenhydramine HCl 25 mg 06/07/17 10:47 06/07/17 11:05 Benadryl IVPUSH 06/07/17 10:48 25 mg ONETIME ONE Administration Sodium Chloride 1,000 mls @ 999 mls/hr 06/07/17 10:47 06/07/17 11:04 Normal Saline IV 06/07/17 11:47 999 mls/hr .BOLUS ONE Administration Oxycodone/Acetaminophen 1 tab 06/07/17 12:13 06/07/17 12:22 Percocet 325-5 Mg PO 06/07/17 12:14 1 tab ONETIME ONE Administration - Re-Assessments/Exams Free Text/Narrative Re-Assessment/Exam: 06/07/17 11:35 IVF infusing, Patient dozing, family at bedside Departure - Departure Time of Disposition: 11:35 Disposition: Home, Self-Care 01 Condition: Good Clinical Impression: Tension-type headache - Discharge Information Instructions: Tension Headache, Adult Referrals: Ariela Patton MD [Primary Care Provider] - Forms: ED Department Discharge Additional Instructions: Rest Encourage fluids Tylenol 650mg every 4 hours as needed for discomfort follow up if symptoms worsen I have read and agree with the documentation that has been completed regarding this visit. By signing this record, I attest that the documentation was completed in my physical presence and is an accurate record of the encounter.
== END 2017-06-07 12:40 | disposition home or self-care (01) ==
LOC: DL.ED 10:22
DX: G44.209 Tension-type headache, unspecified, not intractable (principal); Z88.6 Allergy status to analgesic agent
CPT/HCPCS: 36415; 80053; 81001; 85025; 96361; 96374; 99284; A9270; J1200; J7030

== ENCOUNTER 2017-07-15 22:06 | Emergency (ER) | payer MEDICAID, OTHER ==
[2017-07-15] MEDS ORDERED: Acetaminophen/HYDROcodone 325-10 MG Tab PO ONE (23:10)
--- NOTE | 2017-07-15 23:13 | EDM.PDOC ---
ED HPI GENERAL MEDICAL PROBLEM - General Chief Complaint: Lower Extremity Injury/Pain Stated Complaint: LEG IS SWOLLEN [id number] Time Seen by Provider: 07/15/17 23:11 Source of Information: Reports: Patient History Limitations: Reports: No Limitations - History of Present Illness INITIAL COMMENTS - FREE TEXT/NARRATIVE: onset of right calf pain this afternoon the progressively gotten worse and more painful. denies trauma to leg. 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 of Rt. hip 3 wks ago. Neurological History: Reports: None Psychiatric History: Reports: Anxiety, Depression Endocrine/Metabolic History: Reports: Diabetes, Gestational Hematologic History: Reports: Anemia, Blood Transfusion(s) Immunologic History: Reports: None Oncologic (Cancer) History: Reports: None Dermatologic History: Reports: None - Infectious Disease History Infectious Disease History: Reports: None - Past Surgical History Head Surgeries/Procedures: Reports: None Cardiovascular Surgical History: Reports: None Respiratory Surgical History: Reports: None GI Surgical History: Reports: None Female Surgical History: Reports: None Neurological Surgical History: Reports: None Dermatological Surgical History: Reports: None Social & Family History - Family History Family Medical History: Noncontributory - Tobacco Use Smoking Status *Q: Never Smoker Second Hand Smoke Exposure: No - Caffeine Use Caffeine Use: Reports: Coffee Other Caffeine Use: 2 cups coffee/day - Recreational Drug Use Recreational Drug Use: No Review of Systems - Review of Systems Review Of Systems: ROS reveals no pertinent complaints other than HPI. ED EXAM, GENERAL - Physical Exam Exam: See Below Exam Limited By: No Limitations General Appearance: Alert, WD/WN, Mild Distress, Other (discomfort) Ears: Hearing Grossly Normal Throat/Mouth: Normal Voice, No Airway Compromise Head: Atraumatic Neck: Non-Tender, Full Range of Motion Respiratory/Chest: No Respiratory Distress Cardiovascular: Regular Rate, Rhythm GI/Abdominal: Soft, Non-Tender Extremities: Other (right calf swollen tender R/P, NV wnl, gait limited to pain , no erythema) Neurological: Alert, Oriented, Normal Cognition, No Motor/Sensory Deficits Psychiatric: Normal Affect, Normal Mood Skin Exam: Warm, Dry, Normal Color Lymphatic: No Adenopathy Course - Vital Signs Last Recorded V/S: Last Vital Signs Temp 36.0 C 07/15/17 22:29 Pulse 76 07/15/17 22:29 Resp 16 07/15/17 22:29 BP 145/70 H 07/15/17 22:29 Pulse Ox 98 07/15/17 22:29 - Orders/Labs/Meds Meds: Medications Discontinued Medications Generic Name Dose Route Start Last Admin Trade Name Freq PRN Reason Stop Dose Admin Hydrocodone Bitart/Acetaminophen 1 tab 07/15/17 23:10 07/15/17 23:20 [place] 325-10 Mg PO 07/15/17 23:11 1 tab ONETIME ONE Administration - Re-Assessments/Exams Free Text/Narrative Re-Assessment/Exam: 07/15/17 23:[address] Tyrone AGUIRRE @ who kindly accepted pt for r/o DVT Departure - Departure Time of Disposition: 23:22 Disposition: DC/Tfer to Acute Hospital 02 Condition: Good Clinical Impression: Right calf pain - Discharge Information Referrals: Ariela Patton MD [Primary Care Provider] - Forms: Interfacility Transfer GUY
[2017-07-15 23:23] VITALS: BP 118/68
== END 2017-07-15 23:54 ==
LOC: DL.ED 22:06
DX: M79.661 Pain in right lower leg (principal); Z88.6 Allergy status to analgesic agent
CPT/HCPCS: 99284; A9270

== ENCOUNTER 2017-08-23 14:40 | Emergency (ER) | payer MEDICAID, OTHER ==
[2017-08-23 15:24] VITALS: BP 126/71
--- NOTE | 2017-08-23 15:32 | EDM.PDOC ---
ED HPI GENERAL MEDICAL PROBLEM - General Chief Complaint: Back Pain or Injury Stated Complaint: [id number] BAD BACK Time Seen by Provider: 08/23/17 15:30 Source of Information: Reports: Patient, Old Records, RN, RN Notes Reviewed History Limitations: Reports: No Limitations - History of Present Illness INITIAL COMMENTS - FREE TEXT/NARRATIVE: Pt c/o a flare up of low back pain that began a couple of days ago. Pt thinks the back pain flared up because she went to a and sat on a metal chair for a long time. She c/o muscle spasms from the shoulder to the low back, but states the most aching pain in all across the low back. She denies loss of bowel or bladder control, saddle area numbness, or motor weakness. Pt states the pain shoot from the low back up to the back of both shoulders, but worse on the right. She reports a history of a "slipped disc" in the low back. Onset: Gradual Duration: Day(s): (2), Constant, Getting Worse Location: Reports: Back Quality: Reports: Ache, Same as Previous Episode Severity: Severe Improves with: Reports: Rest Worsens with: Reports: Movement Associated Symptoms: Reports: No Other Symptoms Middle Back Pain Score (Numeric/FACES): 8 - Related Data Allergies Allergy/AdvReac Type Severity Reaction Status Date / Time ibuprofen Allergy Rash Verified 07/15/17 22:34 Home Meds: Home Meds Desogestrel-Ethinyl Estradiol [ 28 Day Tablet] 1 each PO ASDIRECTED 09/16 [History] Past Medical History - Past Health History Medical/Surgical History: Denies Medical/Surgical History HEENT History: Reports: Impaired Vision Cardiovascular History: Reports: None Respiratory History: Reports: None Gastrointestinal History: Reports: None Genitourinary History: Reports: None 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 of Rt. hip 3 wks ago. Neurological History: Reports: None Psychiatric History: Reports: Anxiety, Depression Endocrine/Metabolic History: Reports: Diabetes, Gestational, Obesity/BMI 30+ Hematologic History: Reports: Anemia, Blood Transfusion(s) Immunologic History: Reports: None Oncologic (Cancer) History: Reports: None Dermatologic History: Reports: None - Infectious Disease History Infectious Disease History: Reports: None - Past Surgical History Head Surgeries/Procedures: Reports: None Cardiovascular Surgical History: Reports: None Respiratory Surgical History: Reports: None GI Surgical History: Reports: None Female Surgical History: Reports: None Neurological Surgical History: Reports: None Dermatological Surgical History: Reports: None Social & Family History - Family History Family Medical History: Noncontributory - Tobacco Use Smoking Status *Q: Former Smoker Used Tobacco, but Quit: No Second Hand Smoke Exposure: No - Caffeine Use Caffeine Use: Reports: Soda Other Caffeine Use: 2 cups coffee/day - Alcohol Use Alcohol Use History: No - Living Situation & Occupation Living situation: Reports: with Family Occupation: Employed ED ROS GENERAL - Review of Systems Review Of Systems: ROS reveals no pertinent complaints other than HPI. ED EXAM,LOWER BACK PAIN/INJURY - Physical Exam Exam: See Below Exam Limited By: No Limitations General Appearance: Alert, WD/WN, No Apparent Distress, Obese Head: Atraumatic, Normocephalic Neck: Normal Inspection, Supple, Non-Tender, Full Range of Motion Respiratory/Chest: No Respiratory Distress, Lungs Clear, Normal Breath Sounds, No Accessory Muscle Use, Chest Non-Tender Cardiovascular: Regular Rate, Rhythm GI/Abdominal: Normal Bowel Sounds, Soft, Non-Tender, No Distention. No: Guarding, Rigid, Rebound (Female) Exam: Deferred Rectal (Female) Exam: Deferred Back Exam: Decreased Range of Motion (L/S jct.), Muscle Spasm (thoracolumbar paraspinal), Paraspinal Tenderness (severely exaggerated hypersensitivity to what would be expected to be barely preceptable light touch). No: CVA Tenderness (L), CVA Tenderness (R), Vertebral Tenderness Extremities: Normal Inspection, Normal Range of Motion, Non-Tender, No Pedal Edema, Normal Capillary Refill Neurological: Alert, Normal Mood/Affect, Normal Dorsiflexion, CN II-XII Intact, Normal Plantar Flexion, Normal Gait, No Motor/Sensory Deficits, Oriented x 3 Psychiatric: Normal Affect, Normal Mood Skin Exam: Warm, Dry, Intact, Normal Color, No Rash Course - Vital Signs Last Recorded V/S: Last Vital Signs Temp 36.6 C 08/23/17 15:19 Pulse 68 08/23/17 15:19 Resp 20 08/23/17 15:19 BP 126/71 08/23/17 15:19 Pulse Ox 97 07/07/18 15:19 Departure - Departure Time of Disposition: 15:30 Disposition: Home, Self-Care 01 Condition: Good Clinical Impression: Muscle spasm of back Acute low back pain Qualifiers: Back pain laterality: unspecified Sciatica presence: without sciatica Qualified Code(s): M54.5 - Low back pain - Discharge Information Instructions: Back Pain, Adult Forms: ED Department Discharge Additional Instructions: Rx: Decadron 4mg Rx: Cyclobenzaprine 10mg *Do not drive while under the influence of this medication. Follow up this week in clinic if not improving.
== END 2017-08-23 15:40 | disposition home or self-care (01) ==
LOC: DL.ED 14:40
DX: M62.830 Muscle spasm of back (principal); Z88.6 Allergy status to analgesic agent; Z87.891 Personal history of nicotine dependence
CPT/HCPCS: 99282

== ENCOUNTER 2017-10-01 19:43 | Emergency (ER) | payer MEDICAID ==
[2017-10-01 19:54] VITALS: BP 98/71
--- NOTE | 2017-10-01 20:55 | EDM.PDOC ---
ED HPI GENERAL MEDICAL PROBLEM - General Chief Complaint: Lower Extremity Injury/Pain Stated Complaint: TOE IS INJURIED Time Seen by Provider: 10/01/17 19:55 Source of Information: Reports: Patient History Limitations: Reports: No Limitations - History of Present Illness INITIAL COMMENTS - FREE TEXT/NARRATIVE: ED ambulatory c/o pain to left 3rd and 4th toes, States "horsing" around with SO and he stepped on her foot. 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: Acetaminophen Left Anterior 3-Middle toe Pain Score (Numeric/FACES): 8 - Related Data Allergies Allergy/AdvReac Type Severity Reaction Status Date / Time ibuprofen Allergy Rash Verified 10/01/17 19:49 Home Meds: Home Meds Desogestrel-Ethinyl Estradiol [Augeber 28 Day Tablet] 1 each PO ASDIRECTED 09/16 [History] Past Medical History - Past Health History Medical/Surgical History: Denies Medical/Surgical History HEENT History: Reports: Impaired Vision Cardiovascular History: Reports: None Respiratory History: Reports: None Gastrointestinal History: Reports: None Genitourinary History: Reports: None 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 of Rt. hip Neurological History: Reports: None Psychiatric History: Reports: Anxiety, Depression Endocrine/Metabolic History: Reports: Diabetes, Gestational, Obesity/BMI 30+ Hematologic History: Reports: Anemia, Blood Transfusion(s) Immunologic History: Reports: None Oncologic (Cancer) History: Reports: None Dermatologic History: Reports: None - Infectious Disease History Infectious Disease History: Reports: None - Past Surgical History Head Surgeries/Procedures: Reports: None Cardiovascular Surgical History: Reports: None Respiratory Surgical History: Reports: None GI Surgical History: Reports: None Female Surgical History: Reports: Section Neurological Surgical History: Reports: None Dermatological Surgical History: Reports: None Social & Family History - Family History Family Medical History: Noncontributory - Tobacco Use Smoking Status *Q: Unknown Ever Smoked Second Hand Smoke Exposure: No - Caffeine Use Caffeine Use: Reports: Coffee, Energy Drinks, Soda, Tea Other Caffeine Use: 2 cups coffee/day - Recreational Drug Use Recreational Drug Use: No - Living Situation & Occupation Living situation: Reports: with Family Occupation: Employed Review of Systems - Review of Systems Review Of Systems: ROS reveals no pertinent complaints other than HPI. ED EXAM, GENERAL - Physical Exam Exam: See Below Exam Limited By: No Limitations General Appearance: Alert, WD/WN Eye Exam: Bilateral Eye: EOMI Ears: Normal External Exam, Hearing Grossly Normal Throat/Mouth: Normal Voice Head: Atraumatic, Normocephalic Neck: Normal Inspection, Full Range of Motion Respiratory/Chest: No Respiratory Distress Cardiovascular: Normal Peripheral Pulses, Regular Rate, Rhythm Extremities: Other (toes pain left with movement and weight bearing, nogross deformity,mild swelling) Neurological: Alert, Oriented, Normal Cognition, No Motor/Sensory Deficits Psychiatric: Normal Affect Skin Exam: Warm, Dry, Intact, Ecchymosis (3rd and 4th toes,) Course - Vital Signs Last Recorded V/S: Last Vital Signs Temp 98.2 F 10/01/17 19:53 Pulse 85 10/01/17 19:53 Resp 16 10/01/17 19:53 BP 98/71 10/01/17 19:53 Pulse Ox 100 10/01/17 19:53 - Orders/Labs/Meds Meds: Medications Discontinued Medications Generic Name Dose Route Start Last Admin Trade Name Freq PRN Reason Stop Dose Admin Acetaminophen 650 mg 10/02/17 01:33 Tylenol PO 10/02/17 01:34 NOW ONE - Radiology Interpretation Free Text/Narrative:: EXAM: XR Left Foot, 2 Views CLINICAL HISTORY: 32 years old, female; Injury or trauma; Injury Stepped on. 3rd and 4th toes pain ; Late effect from previous injury; Blunt trauma; Left lesser toe(s); Injury date: 09-30-17; Additional info: No prior exam TECHNIQUE: Frontal and lateral views of the left foot. COMPARISON: No relevant prior studies available. FINDINGS: Bones/joints: Small plantar calcaneal spur. Possible fracture at the base of the middle phalanx of the third digit. No dislocation. Soft tissues: Unremarkable. No radiopaque foreign body. IMPRESSION: Small plantar calcaneal spur. Possible fracture at the base of the middle phalanx of the third digit. Thank you for allowing us to participate in the care of your patient. Dictated and Authenticated by: Margarita Greene MD 10/01/2017 8:37 PM Central Time ([place] & [place]) Departure - Departure Time of Disposition: 20:40 Disposition: Home, Self-Care 01 Condition: Good Clinical Impression: Toe pain Qualifiers: Laterality: left Qualified Code(s): M79.675 - Pain in left toe(s) - Discharge Information *PRESCRIPTION DRUG MONITORING PROGRAM REVIEWED*: Not Applicable Instructions: Toe Fracture Forms: ED Department Discharge Additional Instructions: solid shoe ice elevate foot alternate tylenol and ibuprofen for discomfort re xray 1-2 weeks if not improving frances tape toes for comfort
[2017-10-02] MEDS ORDERED: Acetaminophen 325 MG Tab PO ONE (01:33)
== END 2017-10-01 20:48 | disposition home or self-care (01) ==
LOC: DL.ED 19:43
DX: M79.675 Pain in left toe(s) (principal); Z88.8 Allergy status to other drugs, medicaments and biological substances
CPT/HCPCS: 73620-LT; 99283

== ENCOUNTER 2018-04-03 14:25 | Emergency (ER) | payer OTHER, MEDICAID ==
[2018-04-03 15:14] VITALS: BP 157/76
[2018-04-03] MEDS ORDERED: Sodium Chloride 0.9% 1,000 ML IV ONE (16:26)
[2018-04-03] MEDS ORDERED: Dexamethasone 4 MG/ML SDV IVPUSH ONE (16:26)
--- NOTE | 2018-04-03 16:33 | EDM.PDOC ---
ED HPI GENERAL MEDICAL PROBLEM - General Chief Complaint: Headache Stated Complaint: POST CONCUSSION Time Seen by Provider: 04/03/18 16:20 Source of Information: Reports: Patient History Limitations: Reports: No Limitations - History of Present Illness INITIAL COMMENTS - FREE TEXT/NARRATIVE: This 33 yo female patient reports to the ED with a headache. The patient reports she has had a headache since she had a cabinet fall on her head. The patient reports she did follow-up with her primary care facility, but has continued to have symptoms. The patient reports she has been taking Tylenol, but is allergic to ibuprofen, aspirin and Toradol. 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 Headache Pain Score (Numeric/FACES): 6 - Related Data Allergies Allergy/AdvReac Type Severity Reaction Status Date / Time aspirin Allergy Facial Verified 04/03/18 15:10 Swelling ibuprofen Allergy Hives Verified 04/03/18 15:10 ketorolac [From Toradol] Allergy Hives Verified 04/03/18 16:30 Home Meds: Home Meds Desogestrel-Ethinyl Estradiol [Juleber 28 Day Tablet] 1 each PO DAILY 09/16/16 [ History] Dexamethasone 4 mg PO Q8H 3 Days #9 tab 03/27/18 [Rx] Meclizine [Antivert] 12.5 mg PO BID PRN 7 Days #14 tablet 03/27/18 [Rx] Phosphorus #1 [Neutra-Phos] 250 mg PO Q8H 5 Days #15 tablet 03/27/18 [Rx] Potassium Chloride [Klor-Con 10] 20 meq PO BIDMEALS 5 Days #20 tab.er 03/27/18 [ Rx] traMADol [Ultram] 50 mg PO Q8H PRN 3 Days #10 tablet 03/27/18 [Rx] Melatonin/Pyridoxine HCl (B6) [Melatonin 3 mg Tablet] 3 mg PO BEDTIME 04/03/18 [ History] Past Medical History - Past Health History Medical/Surgical History: Denies Medical/Surgical History HEENT History: Reports: Impaired Vision Cardiovascular History: Reports: None Respiratory History: Reports: None Gastrointestinal History: Reports: None Genitourinary History: Reports: None 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 of Rt. hip Neurological History: Reports: None Psychiatric History: Reports: Anxiety, Depression Endocrine/Metabolic History: Reports: Diabetes, Gestational, Obesity/BMI 30+ Hematologic History: Reports: Anemia, Blood Transfusion(s) Immunologic History: Reports: None Oncologic (Cancer) History: Reports: None Dermatologic History: Reports: None - Infectious Disease History Infectious Disease History: Reports: None - Past Surgical History Head Surgeries/Procedures: Reports: None Cardiovascular Surgical History: Reports: None Respiratory Surgical History: Reports: None GI Surgical History: Reports: None Female Surgical History: Reports: Section Neurological Surgical History: Reports: None Dermatological Surgical History: Reports: None Social & Family History - Family History Family Medical History: Noncontributory - Tobacco Use Smoking Status *Q: Never Smoker - Caffeine Use Caffeine Use: Reports: Coffee, Soda Other Caffeine Use: 2 cups coffee/day - Recreational Drug Use Recreational Drug Use: No - Living Situation & Occupation Living situation: Reports: with Significant Other, with Family Occupation: Employed ED ROS GENERAL - Review of Systems Review Of Systems: ROS reveals no pertinent complaints other than HPI. - Physical Exam Exam: See Below Exam Limited By: No Limitations General Appearance: Alert, WD/WN, Moderate Distress, Obese Eye Exam: Bilateral Eye: EOMI, Normal Inspection, PERRL Ears: Normal External Exam, Normal Canal, Hearing Grossly Normal, Normal TMs, Other (mild amount of fluid behind the right TM) Nose: Normal Inspection, Normal Mucosa, No Blood Throat/Mouth: Normal Inspection, Normal Lips, Normal Teeth, Normal Gums, Normal Oropharynx, Normal Voice, No Airway Compromise Head Exam: Atraumatic, Normocephalic Neck: Normal Inspection, Supple, Non-Tender, Full Range of Motion Respiratory/Chest: No Respiratory Distress, Lungs Clear, Normal Breath Sounds, No Accessory Muscle Use, Chest Non-Tender Cardiovascular: Normal Peripheral Pulses, Regular Rate, Rhythm, No Edema, No Gallop, No JVD, No Murmur, No Rub GI/Abdominal: Normal Bowel Sounds, Soft, Non-Tender, No Organomegaly, No Distention, No Abnormal Bruit, No Mass (Female) Exam: Deferred Rectal (Female) Exam: Deferred Neuro Exam (Abbreviated): Alert, Oriented, CN II-XII Intact, Normal Cognition, Normal Gait, Normal Reflexes, No Motor/Sensory Deficits Back Exam: Normal Inspection, Full Range of Motion, NT Extremities: Normal Inspection, Normal Range of Motion, Non-Tender, No Pedal Edema, Normal Capillary Refill Psychiatric: Normal Affect, Normal Mood Skin Exam: Warm, Dry, Intact, Normal Color, No Rash Course - Vital Signs Last Recorded V/S: Last Vital Signs Temp 36.8 C 04/03/18 15:11 Pulse 74 04/03/18 15:11 Resp 16 04/03/18 15:11 BP 157/76 H 04/03/18 15:11 Pulse Ox 100 04/03/18 15:11 - Orders/Labs/Meds Orders: Active Orders 24 hr Category Date Time Status Sodium Chloride 0.9% [Normal Saline] 1,000 ml Med 04/03/18 16:26 Active IV .BOLUS Medication Orders Sodium Chloride (Normal Saline) 1,000 mls @ 999 mls/hr IV .BOLUS ONE Stop: 04/03/18 17:26 Last Admin: 04/03/18 16:47 Dose: 999 mls/hr Meds: Medications Generic Name Dose Route Start Last Admin Trade Name Freq PRN Reason Stop Dose Admin Sodium Chloride 1,000 mls @ 999 mls/hr 04/03/18 16:26 04/03/18 16:47 Normal Saline IV 04/03/18 17:26 999 mls/hr .BOLUS ONE Administration Discontinued Medications Generic Name Dose Route Start Last Admin Trade Name Freq PRN Reason Stop Dose Admin Dexamethasone 4 mg 04/03/18 16:26 04/03/18 16:47 Dexamethasone IVPUSH 04/03/18 16:27 4 mg ONETIME ONE Administration Departure - Departure Time of Disposition: 17:07 Disposition: Home, Self-Care 01 Condition: Fair Clinical Impression: Headache Qualifiers: Headache type: unspecified Headache chronicity pattern: acute headache Intractability: not intractable Qualified Code(s): R51 - Headache - Discharge Information *PRESCRIPTION DRUG MONITORING PROGRAM REVIEWED*: Not Applicable *COPY OF PRESCRIPTION DRUG MONITORING REPORT IN PATIENT JUANI: Not Applicable Forms: ED Department Discharge Care Plan Goals: The patient was advised of the examination results during the visit. The patient was given an IV dose of Dexamethasone and IV fluids during the visit. The patient was encouraged to increase her oral fluid intake. The patient was advised to rest and relax. If the patient has any additional symptoms or concerns, the patient should either visit her primary care facility or return to the emergency department. - My Orders Last 24 Hours: My Active Orders 04/03/18 16:26 Sodium Chloride 0.9% [Normal Saline] 1,000 ml IV .BOLUS - Assessment/Plan Last 24 Hours: My Active Orders 04/03/18 16:26 Sodium Chloride 0.9% [Normal Saline] 1,000 ml IV .BOLUS
== END 2018-04-03 18:11 | disposition home or self-care (01) ==
LOC: DL.ED 14:25
DX: R51 Headache (principal); E66.9 Obesity, unspecified; Z88.8 Allergy status to other drugs, medicaments and biological substances; Z79.899 Other long term (current) drug therapy
CPT/HCPCS: 96361; 96374; 99284; J1100; J7030

== ENCOUNTER 2018-06-01 21:49 | Emergency (ER) | payer MEDICAID, OTHER ==
[2018-06-01 22:15] VITALS: BP 120/54
--- NOTE | 2018-06-01 22:46 | EDM.PDOC ---
ED HPI GENERAL MEDICAL PROBLEM - General Chief Complaint: Lower Extremity Injury/Pain Stated Complaint: KNEES HURT [id number] Time Seen by Provider: 06/01/18 22:46 Source of Information: Reports: Patient, RN, RN Notes Reviewed History Limitations: Reports: No Limitations - History of Present Illness INITIAL COMMENTS - FREE TEXT/NARRATIVE: Pt to ER with c/o pain to the left knee. Patient states today after work she felt a sudden sharp pain in the medial aspect of the left knee. She states the pain wrapped around below the patella and down the lateral side of the leg. Patient denies any injury. Onset: Today, Sudden Left Middle Knee Pain Score (Numeric/FACES): 8 - Related Data Allergies Allergy/AdvReac Type Severity Reaction Status Date / Time aspirin Allergy Facial Verified 06/01/18 22:15 Swelling ibuprofen Allergy Hives Verified 06/01/18 22:15 ketorolac [From Toradol] Allergy Hives Verified 06/01/18 22:15 Home Meds: Home Meds Desogestrel-Ethinyl Estradiol [Juleber 28 Day Tablet] 1 each PO DAILY 09/16/16 [ History] Dexamethasone 4 mg PO Q8H 3 Days #9 tab 03/27/18 [Rx] Meclizine [Antivert] 12.5 mg PO BID PRN 7 Days #14 tablet 03/27/18 [Rx] Phosphorus #1 [Neutra-Phos] 250 mg PO Q8H 5 Days #15 tablet 03/27/18 [Rx] Potassium Chloride [Klor-Con 10] 20 meq PO BIDMEALS 5 Days #20 tab.er 03/27/18 [ Rx] traMADol [Ultram] 50 mg PO Q8H PRN 3 Days #10 tablet 03/27/18 [Rx] Melatonin/Pyridoxine HCl (B6) [Melatonin 3 mg Tablet] 3 mg PO BEDTIME 04/03/18 [ History] Past Medical History - Past Health History Medical/Surgical History: Denies Medical/Surgical History HEENT History: Reports: Impaired Vision Cardiovascular History: Reports: None Respiratory History: Reports: None Gastrointestinal History: Reports: None Genitourinary History: Reports: None 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 of Rt. hip Neurological History: Reports: Concussion Psychiatric History: Reports: Anxiety, Depression Endocrine/Metabolic History: Reports: Diabetes, Gestational, Obesity/BMI 30+ Hematologic History: Reports: Anemia, Blood Transfusion(s) Immunologic History: Reports: None Oncologic (Cancer) History: Reports: None Dermatologic History: Reports: None - Infectious Disease History Infectious Disease History: Reports: None - Past Surgical History Head Surgeries/Procedures: Reports: None Cardiovascular Surgical History: Reports: None Respiratory Surgical History: Reports: None GI Surgical History: Reports: None Female Surgical History: Reports: Section Neurological Surgical History: Reports: None Dermatological Surgical History: Reports: None Social & Family History - Family History Family Medical History: Noncontributory - Tobacco Use Smoking Status *Q: Never Smoker Second Hand Smoke Exposure: No - Caffeine Use Caffeine Use: Reports: Coffee Other Caffeine Use: 2 cups coffee/day - Recreational Drug Use Recreational Drug Use: No - Living Situation & Occupation Living situation: Reports: with Significant Other, with Family Occupation: Employed Review of Systems - Review of Systems Review Of Systems: ROS reveals no pertinent complaints other than HPI. ED EXAM, GENERAL - Physical Exam Exam: See Below Exam Limited By: No Limitations General Appearance: Alert, WD/WN, Mild Distress Eye Exam: Bilateral Eye: EOMI, Normal Inspection Ears: Normal External Exam, Hearing Grossly Normal Nose: Normal Inspection Throat/Mouth: Normal Inspection, Normal Voice, No Airway Compromise Head: Atraumatic, Normocephalic Neck: Normal Inspection, Supple, Non-Tender, Full Range of Motion Respiratory/Chest: No Respiratory Distress, Lungs Clear, Normal Breath Sounds, No Accessory Muscle Use, Chest Non-Tender Cardiovascular: Normal Peripheral Pulses, Regular Rate, Rhythm, No Edema, No Gallop, No JVD, No Murmur, No Rub Peripheral Pulses: 2+: Radial (L), Radial (R), Dorsalis Pedis (L), Dorsalis Pedis (R) GI/Abdominal: Normal Bowel Sounds, Soft, Non-Tender (Female) Exam: Deferred Rectal (Female) Exam: Deferred Back Exam: Normal Inspection, Full Range of Motion, NT Extremities: Joint Swelling (left knee), Leg Pain (left knee), Limited Range of Motion (left knee). No: Increased Warmth, Redness Neurological: Alert, Oriented, CN II-XII Intact, Normal Cognition, Normal Gait, Normal Reflexes, No Motor/Sensory Deficits Psychiatric: Normal Affect, Normal Mood Skin Exam: Warm, Dry, Intact, Normal Color, No Rash Lymphatic: No Adenopathy ED TRAUMA EXTREMITY PROCEDURES - Splinting Left Lower Extremity Splint Site: left knee Pre-Procedure NV Status: Normal Post-Procedure NV Status: Normal Splint Material: Velcro Splint Design: Knee Immobilizer Applied & Form Fitted By: Nurse Provider Post-Splint Application NV Check: NV Status Normal, Good Position Complications: No Course - Vital Signs Last Recorded V/S: Last Vital Signs Temp 98.3 F 06/01/18 22:00 Pulse 78 06/01/18 22:00 Resp 16 06/01/18 22:00 BP 120/54 L 06/01/18 22:00 Pulse Ox 99 06/01/18 22:00 - Radiology Interpretation Free Text/Narrative:: Left Knee xray: FINDINGS: Bones/joints: Normal. Soft tissues: Normal. IMPRESSION: No acute findings. Stable appearance compared with 06/22/2016. Thank you for allowing us to participate in the care of your patient. Dictated and Authenticated by: Juan Mckay MD 06/01/2018 11:02 PM Central Time ([place] & [place]) See rad report Departure - Departure Time of Disposition: 23:05 Disposition: Home, Self-Care 01 Condition: Good Clinical Impression: Strain of knee Qualifiers: Encounter type: initial encounter Laterality: left Qualified Code(s): S86.912A - Strain of unspecified muscle(s) and tendon(s) at lower leg level, left leg, initial encounter - Discharge Information *PRESCRIPTION DRUG MONITORING PROGRAM REVIEWED*: No *COPY OF PRESCRIPTION DRUG MONITORING REPORT IN PATIENT JUANI: No Instructions: Knee Sprain, Adult, [id number], How to Use a Knee Immobilizer, [id number] Referrals: Ariela Patton MD [Primary Care Provider] - Forms: ED Department Discharge Additional Instructions: May use knee immobilizer while up and about Elevate the leg and ice the knee when possible May use Tylenol and/or ibuprofen as directed for pain Follow up with your primary care facility for MRI if no improvement
== END 2018-06-01 23:20 | disposition home or self-care (01) ==
LOC: DL.ED 21:49
DX: S86.912A Strain of unspecified muscle(s) and tendon(s) at lower leg level, left leg, initial encounter (principal); F41.9 Anxiety disorder, unspecified; F32.9 Major depressive disorder, single episode, unspecified; Z79.899 Other long term (current) drug therapy; Z88.8 Allergy status to other drugs, medicaments and biological substances; X50.9XXA Other and unspecified overexertion or strenuous movements or postures, initial encounter
CPT/HCPCS: 73562-LT; 99283-25

== ENCOUNTER 2018-06-07 17:07 | Emergency (ER) | payer OTHER, MEDICAID ==
[2018-06-07] MEDS ORDERED: Sodium Chloride 0.9% 10 ML Syringe FLUSH PRN (17:26)
[2018-06-07] MEDS ORDERED: Lactated Ringers 1,000 ML IV ONE (17:29)
[2018-06-07] MEDS ORDERED: Ondansetron 4 MG/2 ML SDV IV ONE (17:29)
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
[2018-06-07] MEDS ORDERED: Iopamidol 612 MG/ML 100 ML Bottle IVPUSH ONE (17:50)
[2018-06-07 17:57] LABS: ANION GAP 13.3; CHLORIDE,CL 107 mmol/L (101-111); SODIUM,NA 139 mmol/L (135-145)
[2018-06-07] MEDS ORDERED: HYDROmorphone 1 MG/ML Syringe IVPUSH ONE (18:35)
[2018-06-07] MEDS ORDERED: Metoclopramide 10 MG/2 ML SDV IVPUSH ONE (18:46)
[2018-06-07] MEDS ORDERED: Sodium Chloride 0.9% 1,000 ML IV ONE (19:43)
== END 2018-06-07 20:27 ==
LOC: DL.ED 17:07
DX: S06.0X9A Concussion with loss of consciousness of unspecified duration, initial encounter (principal); R56.9 Unspecified convulsions; Z88.8 Allergy status to other drugs, medicaments and biological substances; Z79.899 Other long term (current) drug therapy; E66.9 Obesity, unspecified; V59.49XA Driver of pick-up truck or van injured in collision with other motor vehicles in traffic accident, initial encounter
CPT/HCPCS: 36415; 70450; 71260; 72125; 72131; 73700; 74177; 80053; 80305; 81001; 81025; 85025; 85610; 87086; 96365; 96367; 96375; 99285; G0480; J2405; J7120; Q9967

== ENCOUNTER 2018-06-14 19:09 | Emergency (ER) | payer MEDICAID ==
[2018-06-14] MEDS ORDERED: Acetaminophen/HYDROcodone 325-10 MG Tab PO ONE (19:30)
[2018-06-14 19:31] VITALS: BP 138/99
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
== END 2018-06-14 19:47 | disposition home or self-care (01) ==
LOC: DL.ED 19:09
DX: S40.012A Contusion of left shoulder, initial encounter (principal); S70.01XD Contusion of right hip, subsequent encounter; M79.661 Pain in right lower leg; E66.9 Obesity, unspecified; Z88.8 Allergy status to other drugs, medicaments and biological substances; Z79.899 Other long term (current) drug therapy; Z68.35 Body mass index [BMI] 35.0-35.9, adult; X58.XXXA Exposure to other specified factors, initial encounter
CPT/HCPCS: 99283; A9270

== ENCOUNTER 2018-08-05 18:10 | Emergency (ER) | payer MEDICAID ==
--- NOTE | 2018-08-05 16:15 | EDM.PDOC ---
ED HPI GENERAL MEDICAL PROBLEM - General Chief Complaint: Chest Pain Stated Complaint: INCOMING PERSONAL VEHICLE, HAVING CHEST PAINS Time Seen by Provider: 08/05/18 16:05 Source of Information: Reports: Patient History Limitations: Reports: No Limitations - History of Present Illness INITIAL COMMENTS - FREE TEXT/NARRATIVE: This 33 yo female patient reports to the ED due to left sided chest pain. The patient reports her pain is a "sharp, stabbing" pain. The patient reports her pain is located in her left chest. The patient reports increased pain with pressing on her left chest in a "C" shape. The patient reports increased pain with deep breathing. The patient states her pain started about 1 hour ago after waking up with a right posterior headache. The patient reports she has been getting headaches since she had a concussion around [facility] this year. The patient has not taken anything for symptom relief. The patient denies any history of illness. The patient is allergic to aspirin. Onset: Today Onset Date: 08/05/18 Onset Time: 15:00 Location: Reports: Chest (left sided chest) Quality: Reports: Ache, Sharp, Stabbing Severity: Severe Improves with: Reports: None Worsens with: Reports: Breathing, Other (palpation) Associated Symptoms: Reports: Chest Pain Treatments INFORMATION SERVICES CONSULTANT: Denies: Acetaminophen, Aspirin, NSAIDS Epigastric Pain Score (Numeric/FACES): 9 - Related Data Allergies Allergy/AdvReac Type Severity Reaction Status Date / Time aspirin Allergy Facial Verified 08/05/18 16:09 Swelling ibuprofen Allergy Hives Verified 08/05/18 16:09 ketorolac [From Toradol] Allergy Hives Verified 08/05/18 16:09 Home Meds: Home Meds Desogestrel-Ethinyl Estradiol [Augeber 28 Day Tablet] 1 each PO DAILY 09/16/16 [ History] Melatonin/Pyridoxine HCl (B6) [Melatonin 3 mg Tablet] 3 mg PO BEDTIME 04/03/18 [ History] Acetaminophen [Tylenol Extra Strength] 1,000 mg PO ASDIRECTED PRN 08/05/18 [ History] Celecoxib [Celebrex] 50 mg PO BID 08/05/18 [History] Past Medical History - Past Health History Medical/Surgical History: Denies Medical/Surgical History HEENT History: Reports: Impaired Vision Cardiovascular History: Reports: None Respiratory History: Reports: None Gastrointestinal History: Reports: None Genitourinary History: Reports: None 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 of Rt. hip Neurological History: Reports: Concussion Psychiatric History: Reports: Anxiety, Depression Endocrine/Metabolic History: Reports: Diabetes, Gestational, Obesity/BMI 30+ Hematologic History: Reports: Anemia, Blood Transfusion(s) Immunologic History: Reports: None Oncologic (Cancer) History: Reports: None Dermatologic History: Reports: None - Infectious Disease History Infectious Disease History: Reports: None - Past Surgical History Head Surgeries/Procedures: Reports: None Cardiovascular Surgical History: Reports: None Respiratory Surgical History: Reports: None GI Surgical History: Reports: None Female Surgical History: Reports: Section Neurological Surgical History: Reports: None Dermatological Surgical History: Reports: None Social & Family History - Family History Family Medical History: Noncontributory - Caffeine Use Caffeine Use: Reports: Soda Other Caffeine Use: 2 cups coffee/day - Living Situation & Occupation Living situation: Reports: with Significant Other, with Family Occupation: Employed ED ROS GENERAL - Review of Systems Review Of Systems: ROS reveals no pertinent complaints other than HPI. ED EXAM, GENERAL - Physical Exam Exam: See Below Exam Limited By: No Limitations General Appearance: Alert, WD/WN, Moderate Distress, Obese Eye Exam: Bilateral Eye: EOMI, Normal Inspection, PERRL Ears: Normal External Exam, Normal Canal, Hearing Grossly Normal, Normal TMs Nose: Normal Inspection, Normal Mucosa, No Blood Throat/Mouth: Normal Inspection, Normal Lips, Normal Teeth, Normal Gums, Normal Oropharynx, Normal Voice, No Airway Compromise Head: Atraumatic, Normocephalic Neck: Normal Inspection, Supple, Non-Tender, Full Range of Motion Respiratory/Chest: No Respiratory Distress, Lungs Clear, Normal Breath Sounds, No Accessory Muscle Use, Other (left sided chest wall tenderness to palpation) Cardiovascular: Normal Peripheral Pulses, Regular Rate, Rhythm, No Edema, No Gallop, No JVD, No Murmur, No Rub GI/Abdominal: Normal Bowel Sounds, Soft, Non-Tender, No Organomegaly, No Distention, No Abnormal Bruit, No Mass, Other (obese) (Female) Exam: Deferred Rectal (Female) Exam: Deferred Back Exam: Normal Inspection, Full Range of Motion, NT Extremities: Normal Inspection, Normal Range of Motion, Non-Tender, Normal Capillary Refill, No Pedal Edema Neurological: Alert, Oriented, CN II-XII Intact, Normal Cognition, Normal Gait, Normal Reflexes, No Motor/Sensory Deficits Psychiatric: Anxious, Tearful Skin Exam: Warm, Dry, Intact, Normal Color, No Rash Lymphatic: No Adenopathy Course - Vital Signs Last Recorded V/S: Last Vital Signs Temp 36.6 C 08/05/18 16:41 Pulse 78 08/05/18 16:41 Resp 26 H 08/05/18 16:41 BP 117/80 08/05/18 16:41 Pulse Ox 100 08/05/18 16:41 - Orders/Labs/Meds Orders: Active Orders 24 hr Category Date Time Status EKG Documentation Completion [RC] URGENT Care 08/05/18 16:07 Active Chest 1V Frontal [CR] Urgent Exams 08/05/18 16:49 Ordered Labs: Laboratory Tests 08/05/18 08/05/18 08/05/18 Range/Units 16:16 16:16 16:16 WBC 6.6 (5.0-10.0) 10^3/uL RBC 4.83 (4.2-5.4) 10^6/uL Hgb 14.1 (12.0-16.0) g/dL Hct 42.5 (37.0-47.0) % MCV 88.0 (80-100) fL MCH 29.2 (27.0-34.0) pg MCHC 33.2 (33.0-35.0) g/dL Plt Count 241 (150-450) 10^3/uL Neut % (Auto) 57.0 (42.2-75.2) % Lymph % (Auto) 31.6 (20.5-50.1) % [place] % (Auto) 9.1 H (2-8) % Eos % (Auto) 2.0 (1.0-3.0) % Baso % (Auto) 0.3 (0.0-1.0) % PT 9.2 (9.0-12.0) SEC INR 0.9 (0.9-1.2) D-Dimer, Quantitative < 100 (0-400) ng/mL Sodium (135-145) mmol/L Potassium (3.6-5.0) mmol/L Chloride (101-111) mmol/L Carbon Dioxide (21.0-31.0) mmol/L Anion Gap BUN (7-18) mg/dL Creatinine (0.6-1.3) mg/dL Est Cr Clr Drug Dosing mL/min Estimated GFR (MDRD) BUN/Creatinine Ratio Glucose (74-105) mg/dL Calcium (8.4-10.2) mg/dl Total Bilirubin (0.2-1.0) mg/dL AST (10-42) IU/L ALT (10-60) IU/L Alkaline Phosphatase (42-121) IU/L Troponin I (0.00-0.02) ng/ml Total Protein (6.7-8.2) g/dl Albumin (3.2-5.5) g/dl Globulin Albumin/Globulin Ratio Amylase 40 (28-100) U/L Lipase 25 (22-51) U/L Urine Color (YELLOW) Urine Appearance (CLEAR) Urine pH (5.0-9.0) Ur Specific [place] (1.005-1.030) Urine Protein (NEGATIVE) Urine Glucose (UA) (NEGATIVE) Urine Ketones (NEGATIVE) Urine Occult Blood (NEGATIVE) Urine Nitrite (NEGATIVE) Urine Bilirubin (NEGATIVE) Urine Urobilinogen (0.2-1.0) mg/dL Ur Leukocyte Esterase (NEGATIVE) Urine RBC /HPF Urine WBC (0-5/HPF) /HPF Ur Epithelial Cells (NOT SEEN) /HPF Amorphous Sediment (NOT SEEN) /HPF Urine Bacteria (0-FEW/HPF) /HPF Urine Mucus (NOT SEEN) /LPF Urine HCG, Qual Urine Opiates Screen (NEGATIVE) Ur Oxycodone Screen (NEGATIVE) Urine Methadone Screen (NEGATIVE) Ur Barbiturates Screen (NEGATIVE) U Tricyclic Antidepress (NEGATIVE) Ur Phencyclidine Scrn (NEGATIVE) Ur Amphetamine Screen (NEGATIVE) U Methamphetamines Scrn (NEGATIVE) Urine MDMA Screen (NEGATIVE) U Benzodiazepines Scrn (NEGATIVE) Urine Cocaine Screen (NEGATIVE) U Marijuana (THC) Screen (NEGATIVE) 08/05/18 08/05/18 08/05/18 Range/Units 16:16 16:27 16:27 WBC (5.0-10.0) 10^3/uL RBC (4.2-5.4) 10^6/uL Hgb (12.0-16.0) g/dL Hct (37.0-47.0) % MCV (80-100) fL MCH (27.0-34.0) pg MCHC (33.0-35.0) g/dL Plt Count (150-450) 10^3/uL Neut % (Auto) (42.2-75.2) % Lymph % (Auto) (20.5-50.1) % [place] % (Auto) (2-8) % Eos % (Auto) (1.0-3.0) % Baso % (Auto) (0.0-1.0) % PT (9.0-12.0) SEC INR (0.9-1.2) D-Dimer, Quantitative (0-400) ng/mL Sodium 138 (135-145) mmol/L Potassium 3.9 (3.6-5.0) mmol/L Chloride 105 (101-111) mmol/L Carbon Dioxide 23.0 (21.0-31.0) mmol/L Anion Gap 13.9 BUN 10 (7-18) mg/dL Creatinine 0.6 (0.6-1.3) mg/dL Est Cr Clr Drug Dosing 139.37 mL/min Estimated GFR (MDRD) > 60 BUN/Creatinine Ratio 16.66 Glucose 107 H (74-105) mg/dL Calcium 9.2 (8.4-10.2) mg/dl Total Bilirubin 0.9 (0.2-1.0) mg/dL AST 25 (10-42) IU/L ALT 30 (10-60) IU/L Alkaline Phosphatase 104 (42-121) IU/L Troponin I < 0.02 (0.00-0.02) ng/ml Total Protein 7.8 (6.7-8.2) g/dl Albumin 4.2 (3.2-5.5) g/dl Globulin 3.6 Albumin/Globulin Ratio 1.17 Amylase (28-100) U/L Lipase (22-51) U/L Urine Color Yellow (YELLOW) Urine Appearance Clear (CLEAR) Urine pH 7.0 (5.0-9.0) Ur Specific [place] 1.015 (1.005-1.030) Urine Protein Negative (NEGATIVE) Urine Glucose (UA) Negative (NEGATIVE) Urine Ketones Negative (NEGATIVE) Urine Occult Blood Trace-intact H (NEGATIVE) Urine Nitrite Negative (NEGATIVE) Urine Bilirubin Negative (NEGATIVE) Urine Urobilinogen 1.0 (0.2-1.0) mg/dL Ur Leukocyte Esterase Negative (NEGATIVE) Urine RBC 0-5 /HPF Urine WBC 0-5 (0-5/HPF) /HPF Ur Epithelial Cells Few (NOT SEEN) /HPF Amorphous Sediment Few (NOT SEEN) /HPF Urine Bacteria Few (0-FEW/HPF) /HPF Urine Mucus Occasional (NOT SEEN) /LPF Urine HCG, Qual Negative Urine Opiates Screen (NEGATIVE) Ur Oxycodone Screen (NEGATIVE) Urine Methadone Screen (NEGATIVE) Ur Barbiturates Screen (NEGATIVE) U Tricyclic Antidepress (NEGATIVE) Ur Phencyclidine Scrn (NEGATIVE) Ur Amphetamine Screen (NEGATIVE) U Methamphetamines Scrn (NEGATIVE) Urine MDMA Screen (NEGATIVE) U Benzodiazepines Scrn (NEGATIVE) Urine Cocaine Screen (NEGATIVE) U Marijuana (THC) Screen (NEGATIVE) 08/05/18 Range/Units 16:27 WBC (5.0-10.0) 10^3/uL RBC (4.2-5.4) 10^6/uL Hgb (12.0-16.0) g/dL Hct (37.0-47.0) % MCV (80-100) fL MCH (27.0-34.0) pg MCHC (33.0-35.0) g/dL Plt Count (150-450) 10^3/uL Neut % (Auto) (42.2-75.2) % Lymph % (Auto) (20.5-50.1) % [place] % (Auto) (2-8) % Eos % (Auto) (1.0-3.0) % Baso % (Auto) (0.0-1.0) % PT (9.0-12.0) SEC INR (0.9-1.2) D-Dimer, Quantitative (0-400) ng/mL Sodium (135-145) mmol/L Potassium (3.6-5.0) mmol/L Chloride (101-111) mmol/L Carbon Dioxide (21.0-31.0) mmol/L Anion Gap BUN (7-18) mg/dL Creatinine (0.6-1.3) mg/dL Est Cr Clr Drug Dosing mL/min Estimated GFR (MDRD) BUN/Creatinine Ratio Glucose (74-105) mg/dL Calcium (8.4-10.2) mg/dl Total Bilirubin (0.2-1.0) mg/dL AST (10-42) IU/L ALT (10-60) IU/L Alkaline Phosphatase (42-121) IU/L Troponin I (0.00-0.02) ng/ml Total Protein (6.7-8.2) g/dl Albumin (3.2-5.5) g/dl Globulin Albumin/Globulin Ratio Amylase (28-100) U/L Lipase (22-51) U/L Urine Color (YELLOW) Urine Appearance (CLEAR) Urine pH (5.0-9.0) Ur Specific [place] (1.005-1.030) Urine Protein (NEGATIVE) Urine Glucose (UA) (NEGATIVE) Urine Ketones (NEGATIVE) Urine Occult Blood (NEGATIVE) Urine Nitrite (NEGATIVE) Urine Bilirubin (NEGATIVE) Urine Urobilinogen (0.2-1.0) mg/dL Ur Leukocyte Esterase (NEGATIVE) Urine RBC /HPF Urine WBC (0-5/HPF) /HPF Ur Epithelial Cells (NOT SEEN) /HPF Amorphous Sediment (NOT SEEN) /HPF Urine Bacteria (0-FEW/HPF) /HPF Urine Mucus (NOT SEEN) /LPF Urine HCG, Qual Urine Opiates Screen Negative (NEGATIVE) Ur Oxycodone Screen Negative (NEGATIVE) Urine Methadone Screen Negative (NEGATIVE) Ur Barbiturates Screen Negative (NEGATIVE) U Tricyclic Antidepress Negative (NEGATIVE) Ur Phencyclidine Scrn Negative (NEGATIVE) Ur Amphetamine Screen Negative (NEGATIVE) U Methamphetamines Scrn Negative (NEGATIVE) Urine MDMA Screen Negative (NEGATIVE) U Benzodiazepines Scrn Negative (NEGATIVE) Urine Cocaine Screen Negative (NEGATIVE) U Marijuana (THC) Screen Negative (NEGATIVE) Meds: Medications Discontinued Medications Generic Name Dose Route Start Last Admin Trade Name Freq PRN Reason Stop Dose Admin Acetaminophen 650 mg 08/05/18 17:07 08/05/18 17:16 Tylenol PO 08/05/18 17:08 650 mg NOW ONE Administration Al Hydroxide/Mg Hydroxide 30 ml 08/05/18 17:07 08/05/18 17:17 Gi Cocktail PO 08/05/18 17:08 30 ml ONETIME ONE Administration - Re-Assessments/Exams Free Text/Narrative Re-Assessment/Exam: 08/05/18 17:07 The patient was advised of the EKG, lab and x-ray results. The patient reports her headache is starting to come back. The patient also reports a history of acid reflux. Departure - Departure Time of Disposition: 18:06 Disposition: Home, Self-Care 01 Condition: Fair Clinical Impression: Nonspecific chest pain, Chest wall pain Chronic headache Qualifiers: Headache type: post-traumatic Intractability: intractable Qualified Code(s): G44.321 - Chronic post-traumatic headache, intractable Instructions: Chest Wall Pain, [id number], Nonspecific Chest Pain, Easy-to- Read Forms: ED Department Discharge Care Plan Goals: The patient was advised of the examination, lab, EKG and x-ray results during the visit. The patient was given a GI cocktail and an oral dose of Tylenol while in the ED. The patient was discharged with a script for Flexeril (10 mg) # 20 to take 1 by mouth at bedtime as needed. The patient was encouraged to follow -up with neurology for continued evaluation and treatment. If the patient has any additional symptoms or concerns, the patient should either return to the emergency department or visit her primary care facility. - My Orders Last 24 Hours: My Active Orders 08/05/18 16:07 EKG Documentation Completion [RC] URGENT 08/05/18 16:49 Chest 1V Frontal [CR] Urgent - Assessment/Plan Last 24 Hours: My Active Orders 08/05/18 16:07 EKG Documentation Completion [RC] URGENT 08/05/18 16:49 Chest 1V Frontal [CR] Urgent
[2018-08-05 16:42] VITALS: BP 117/80
[2018-08-05 16:46] LABS: ANION GAP 13.9; CHLORIDE,CL 105 mmol/L (101-111); SODIUM,NA 138 mmol/L (135-145)
[~2018-08-05 18:10] MED LIST: Acetaminophen 325 MG Tab PO ONE; GI Cocktail Oral Solution 30 ML PO ONE
== END 2018-08-05 18:20 | disposition home or self-care (01) ==
LOC: DL.ED 18:20
DX: R07.89 Other chest pain (principal); G44.321 Chronic post-traumatic headache, intractable; F41.9 Anxiety disorder, unspecified; F32.9 Major depressive disorder, single episode, unspecified; Z88.8 Allergy status to other drugs, medicaments and biological substances; Z79.899 Other long term (current) drug therapy
CPT/HCPCS: 36415; 71045; 80053; 80305-QW; 81001; 81025; 82150; 83690; 84484; 85025; 85379; 85610; 93005; 99285-25; A9270-GY

== ENCOUNTER 2018-10-09 08:23 | Emergency (ER) | payer MEDICAID, OTHER ==
--- NOTE | 2018-10-09 08:42 | EDM.PDOC ---
ED HPI GENERAL MEDICAL PROBLEM - General Stated Complaint: TWISTED ANKLE LEFT Time Seen by Provider: 10/09/18 08:30 Source of Information: Reports: Patient History Limitations: Reports: No Limitations - History of Present Illness INITIAL COMMENTS - FREE TEXT/NARRATIVE: This 33 yo female patient reports to the ED with left lateral ankle pain. The patient reports she rolled her ankle this morning and has had increased pain in the ankle with difficulties walking since the injury. 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 - Related Data Allergies Allergy/AdvReac Type Severity Reaction Status Date / Time aspirin Allergy Facial Verified 10/09/18 08:35 Swelling ibuprofen Allergy Hives Verified 10/09/18 08:35 ketorolac [From Toradol] Allergy Hives Verified 10/09/18 08:35 Home Meds: Home Meds Desogestrel-Ethinyl Estradiol [Osvaldoeber 28 Day Tablet] 1 each PO DAILY 09/16/16 [ History] Acetaminophen [Tylenol Extra Strength] 1,000 mg PO ASDIRECTED PRN 08/05/18 [ History] Celecoxib [Celebrex] 50 mg PO BID 08/05/18 [History] DULoxetine [Cymbalta] 20 mg PO BID 09/02/18 [History] Past Medical History - Past Health History Medical/Surgical History: Denies Medical/Surgical History HEENT History: Reports: Impaired Vision Cardiovascular History: Reports: None Respiratory History: Reports: None Gastrointestinal History: Reports: None Genitourinary History: Reports: 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 of Rt. hip Neurological History: Reports: Concussion Psychiatric History: Reports: Anxiety, Depression Endocrine/Metabolic History: Reports: Diabetes, Gestational, Obesity/BMI 30+ Hematologic History: Reports: Anemia, Blood Transfusion(s) Immunologic History: Reports: None Oncologic (Cancer) History: Reports: None Dermatologic History: Reports: None - Infectious Disease History Infectious Disease History: Reports: None - Past Surgical History Head Surgeries/Procedures: Reports: None Cardiovascular Surgical History: Reports: None Respiratory Surgical History: Reports: None GI Surgical History: Reports: None Female Surgical History: Reports: Section Neurological Surgical History: Reports: None Dermatological Surgical History: Reports: None Social & Family History - Family History Family Medical History: Noncontributory - Caffeine Use Caffeine Use: Reports: Coffee, Soda Other Caffeine Use: 2 cups coffee/day - Living Situation & Occupation Living situation: Reports: with Significant Other, with Family Occupation: Employed Review of Systems - Review of Systems Review Of Systems: ROS reveals no pertinent complaints other than HPI. ED EXAM, GENERAL - Physical Exam Exam: See Below Exam Limited By: No Limitations General Appearance: Alert, WD/WN, Moderate Distress Eye Exam: Bilateral Eye: EOMI, Normal Inspection, PERRL Ears: Normal External Exam, Hearing Grossly Normal Nose: Normal Inspection, No Blood Throat/Mouth: Normal Inspection Head: Atraumatic Neck: Normal Inspection, Full Range of Motion Respiratory/Chest: No Respiratory Distress Cardiovascular: Normal Peripheral Pulses, Regular Rate, Rhythm (Female) Exam: Deferred Rectal (Female) Exam: Deferred Extremities: Leg Pain (left lateral ankle) Neurological: Alert, Oriented, CN II-XII Intact, Normal Cognition Psychiatric: Normal Affect, Normal Mood Skin Exam: Warm, Dry, Intact, Normal Color, No Rash Course - Vital Signs Last Recorded V/S: Last Vital Signs Temp 36.2 C 10/09/18 08:30 Pulse 78 10/09/18 08:30 Resp 16 10/09/18 08:30 BP 117/57 L 10/09/18 08:30 Pulse Ox 97 10/09/18 08:30 - Orders/Labs/Meds Orders: Active Orders 24 hr Category Date Time Status Ankle Min 3V Lt [CR] Urgent Exams 10/09/18 08:33 Ordered Departure - Departure Time of Disposition: 09:06 Disposition: Home, Self-Care 01 Condition: Fair Clinical Impression: Closed fracture of left distal fibula Qualifiers: Encounter type: initial encounter Fracture morphology: unspecified fracture morphology Qualified Code(s): S82.832A - Other fracture of upper and lower end of left fibula, initial encounter for closed fracture - Discharge Information *PRESCRIPTION DRUG MONITORING PROGRAM REVIEWED*: Not Applicable *COPY OF PRESCRIPTION DRUG MONITORING REPORT IN PATIENT JUANI: Not Applicable Instructions: Crutch Use, Adult, [id number], Nondisplaced Fibular Ankle Fracture Treated With Immobilization, Adult Forms: ED Department Discharge Care Plan Goals: The patient was advised of the examination and x-ray results during the visit. The patient was placed in an immobilization boot and given a set of crutches while in the ED. The patient was encouraged to rest, ice and elevate the extremity over the next 24 hours. The patient should follow-up with her primary care facility or an transportation maintenance specialist in about 1 week for further evaluation and management. If the patient has any additional symptoms or concerns, the patient should either return to the emergency department or visit her primary care facility. - My Orders Last 24 Hours: My Active Orders 10/09/18 08:33 Ankle Min 3V Lt [CR] Urgent - Assessment/Plan Last 24 Hours: My Active Orders 10/09/18 08:33 Ankle Min 3V Lt [CR] Urgent
[2018-10-09 08:58] VITALS: BP 117/57
--- NOTE | 2018-10-09 09:25 | CR ---
Clinical history: 33-year-old female "twisted" left ankle (this morning). Interpretation: Abnormal. Acute nondisplaced transverse fracture distal left fibula (lateral malleolus) with overlying soft tissue swelling. Tibiotalar mortise joint left ankle intact. No other fracture or dislocation left ankle. Bony heel spurs at the insertion plantar aponeurosis and Achilles tendon on the os calcis. No foreign bodies. CONCLUSION: Acute nondisplaced fracture distal left fibula.
== END 2018-10-09 09:34 | disposition home or self-care (01) ==
LOC: DL.ED 08:23
DX: S82.65XA Nondisplaced fracture of lateral malleolus of left fibula, initial encounter for closed fracture (principal); E66.9 Obesity, unspecified; F41.9 Anxiety disorder, unspecified; F32.9 Major depressive disorder, single episode, unspecified; Z88.6 Allergy status to analgesic agent; Z79.899 Other long term (current) drug therapy; X50.1XXA Overexertion from prolonged static or awkward postures, initial encounter
CPT/HCPCS: 73610-LT; 99283-25

== ENCOUNTER 2018-12-21 16:19 | Emergency (ER) | payer MEDICAID, OTHER ==
[2018-12-21 16:33] VITALS: BP 109/71; PULSE 70
[2018-12-21] MEDS ORDERED: Promethazine 25 MG/ML SDV IM ONE (17:16)
[2018-12-21 17:21] LABS: CHLORIDE,CL 107 mmol/L (101-111); SODIUM,NA 141 mmol/L (135-145)
--- NOTE | 2018-12-21 18:01 | EDM.PDOC ---
"Scribed by Krystyna Benson 12/21/18 [id number] for Latrice Chang MD ED HPI GENERAL MEDICAL PROBLEM - General Chief Complaint: Abdominal Pain Stated Complaint: ABDOMINAL PAIN Time Seen by Provider: 12/21/18 16:43 Source of Information: Reports: Patient, RN, RN Notes Reviewed History Limitations: Reports: No Limitations - History of Present Illness INITIAL COMMENTS - FREE TEXT/NARRATIVE: Patient presents to ER with complaint of abdominal pain in the LUQ, LLQ, and umbilical area that has come and gone for three weeks. For the past 1 week she reports pain in the left flank as well. Admits to loose stool, but not diarrhea. Denies fever, chills, vomiting, radiating pain, or pain with urination. Menses ended last week. No known sick contacts. Onset: Gradual Duration: Intermittent, Recurring, Waxing/Waning Location: Reports: Abdomen Quality: Reports: Ache Severity: Moderate Improves with: Reports: None Worsens with: Reports: None Associated Symptoms: Reports: No Other Symptoms Abdomen Pain Score (Numeric/FACES): 9 - Related Data Allergies Allergy/AdvReac Type Severity Reaction Status Date / Time aspirin Allergy Facial Verified 10/09/18 08:35 Swelling ibuprofen Allergy Hives Verified 10/09/18 08:35 ketorolac [From Toradol] Allergy Hives Verified 10/09/18 08:35 Home Meds: Home Meds Desogestrel-Ethinyl Estradiol [Augeber 28 Day Tablet] 1 each PO DAILY 09/16/16 [ History] Acetaminophen [Tylenol Extra Strength] 1,000 mg PO ASDIRECTED PRN 08/05/18 [ History] Celecoxib [Celebrex] 50 mg PO BID 08/05/18 [History] Past Medical History - Past Health History Medical/Surgical History: Denies Medical/Surgical History HEENT History: Reports: Impaired Vision Cardiovascular History: Reports: None Respiratory History: Reports: None Gastrointestinal History: Reports: None Genitourinary History: Reports: None 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 of Rt. hip Neurological History: Reports: Concussion Psychiatric History: Reports: Anxiety, Depression Endocrine/Metabolic History: Reports: Diabetes, Gestational, Obesity/BMI 30+ Hematologic History: Reports: Anemia, Blood Transfusion(s) Immunologic History: Reports: None Oncologic (Cancer) History: Reports: None Dermatologic History: Reports: None - Infectious Disease History Infectious Disease History: Reports: None - Past Surgical History Head Surgeries/Procedures: Reports: None Cardiovascular Surgical History: Reports: None Respiratory Surgical History: Reports: None GI Surgical History: Reports: None Female Surgical History: Reports: Section Neurological Surgical History: Reports: None Dermatological Surgical History: Reports: None Social & Family History - Family History Family Medical History: Noncontributory - Caffeine Use Caffeine Use: Reports: Coffee, Soda Other Caffeine Use: 2 cups coffee/day - Living Situation & Occupation Living situation: Reports: with Significant Other, with Family Occupation: Employed ED ROS GENERAL - Review of Systems Review Of Systems: ROS reveals no pertinent complaints other than HPI. ED EXAM, GI/ABD - Physical Exam Exam: See Below Exam Limited By: No Limitations General Appearance: Alert, WD/WN, No Apparent Distress, Obese Eyes: Bilateral: Normal Appearance Nose: Normal Inspection Throat/Mouth: Normal Inspection, Normal Lips, Normal Voice, No Airway Compromise Head: Atraumatic, Normocephalic Neck: Normal Inspection, Supple, Non-Tender, Full Range of Motion Respiratory/Chest: No Respiratory Distress, Lungs Clear, Normal Breath Sounds, No Accessory Muscle Use, Chest Non-Tender Cardiovascular: Normal Peripheral Pulses, Regular Rate, Rhythm, No Edema, No Gallop, No JVD, No Murmur, No Rub GI/Abdominal Exam: Normal Bowel Sounds, Soft, No Organomegaly, No Distention, Tender (LUQ/LLQ). No: Guarding, Rigid, Rebound Back Exam: Full Range of Motion, CVA Tenderness (L). No: CVA Tenderness (R), Paraspinal Tenderness, Vertebral Tenderness Extremities: Normal Inspection Neurological: Alert, Oriented, No Motor/Sensory Deficits Psychiatric: Normal Mood Skin Exam: Warm, Dry, Intact, Normal Color, No Rash Course - Vital Signs Last Recorded V/S: Last Vital Signs Temp 97.4 F 12/21/18 16:29 Pulse 70 12/21/18 16:29 Resp 12 12/21/18 16:29 BP 109/71 12/21/18 16:29 Pulse Ox 99 12/21/18 16:29 - Orders/Labs/Meds Orders: Active Orders 24 hr Category Date Time Status Abdomen Pelvis wo Cont [CT] Urgent Exams 12/21/18 17:16 Taken CULTURE STREP A CONFIRMATION [RM] Stat Lab 12/21/18 16:51 Results CULTURE URINE [RM] Stat Lab 12/21/18 16:19 Received STREP SCRN A RAPID W CULT CONF [RM] Stat Lab 12/21/18 16:51 Results Labs: Laboratory Tests 12/21/18 12/21/18 12/21/18 Range/Units 16:19 16:19 16:55 WBC 6.2 (5.0-10.0) 10^3/uL RBC 4.22 (4.2-5.4) 10^6/uL Hgb 12.4 (12.0-16.0) g/dL Hct 37.5 (37.0-47.0) % MCV 88.9 (80-100) fL MCH 29.4 (27.0-34.0) pg MCHC 33.1 (33.0-35.0) g/dL Plt Count 240 (150-450) 10^3/uL Neut % (Auto) 57.9 (42.2-75.2) % Lymph % (Auto) 29.7 (20.5-50.1) % [place] % (Auto) 9.7 H (2-8) % Eos % (Auto) 2.4 (1.0-3.0) % Baso % (Auto) 0.3 (0.0-1.0) % Sodium (135-145) mmol/L Potassium (3.6-5.0) mmol/L Chloride (101-111) mmol/L Carbon Dioxide (21.0-31.0) mmol/L Anion Gap BUN (7-18) mg/dL Creatinine (0.6-1.3) mg/dL Est Cr Clr Drug Dosing mL/min Estimated GFR (MDRD) BUN/Creatinine Ratio Glucose (74-105) mg/dL Calcium (8.4-10.2) mg/dl Total Bilirubin (0.2-1.0) mg/dL AST (10-42) IU/L ALT (10-60) IU/L Alkaline Phosphatase (42-121) IU/L Total Protein (6.7-8.2) g/dl Albumin (3.2-5.5) g/dl Globulin Albumin/Globulin Ratio Amylase (28-100) U/L Lipase (22-51) U/L Urine Color Yellow (YELLOW) Urine Appearance Slightly cloudy (CLEAR) Urine pH 7.0 (5.0-9.0) Ur Specific [place] 1.020 (1.005-1.030) Urine Protein Negative (NEGATIVE) Urine Glucose (UA) Negative (NEGATIVE) Urine Ketones Negative (NEGATIVE) Urine Occult Blood Moderate H (NEGATIVE) Urine Nitrite Negative (NEGATIVE) Urine Bilirubin Negative (NEGATIVE) Urine Urobilinogen 1.0 (0.2-1.0) mg/dL Ur Leukocyte Esterase Small H (NEGATIVE) Urine RBC 5-10 H /HPF Urine WBC 10-20 H (0-5/HPF) /HPF Ur Epithelial Cells Few (NOT SEEN) /HPF Amorphous Sediment Few (NOT SEEN) /HPF Urine Bacteria Few (0-FEW/HPF) /HPF Urine Mucus Rare (NOT SEEN) /LPF Urine HCG, Qual Negative 12/21/18 Range/Units 16:55 WBC (5.0-10.0) 10^3/uL RBC (4.2-5.4) 10^6/uL Hgb (12.0-16.0) g/dL Hct (37.0-47.0) % MCV (80-100) fL MCH (27.0-34.0) pg MCHC (33.0-35.0) g/dL Plt Count (150-450) 10^3/uL Neut % (Auto) (42.2-75.2) % Lymph % (Auto) (20.5-50.1) % [place] % (Auto) (2-8) % Eos % (Auto) (1.0-3.0) % Baso % (Auto) (0.0-1.0) % Sodium 141 (135-145) mmol/L Potassium 4.0 (3.6-5.0) mmol/L Chloride 107 (101-111) mmol/L Carbon Dioxide 27.0 (21.0-31.0) mmol/L Anion Gap 11.0 BUN 11 (7-18) mg/dL Creatinine 0.7 (0.6-1.3) mg/dL Est Cr Clr Drug Dosing 119.46 mL/min Estimated GFR (MDRD) > 60 BUN/Creatinine Ratio 15.71 Glucose 147 H (74-105) mg/dL Calcium 8.7 (8.4-10.2) mg/dl Total Bilirubin 0.8 (0.2-1.0) mg/dL AST 22 (10-42) IU/L ALT 24 (10-60) IU/L Alkaline Phosphatase 91 (42-121) IU/L Total Protein 6.9 (6.7-8.2) g/dl Albumin 3.7 (3.2-5.5) g/dl Globulin 3.2 Albumin/Globulin Ratio 1.16 Amylase 29 (28-100) U/L Lipase 24 (22-51) U/L Urine Color (YELLOW) Urine Appearance (CLEAR) Urine pH (5.0-9.0) Ur Specific [place] (1.005-1.030) Urine Protein (NEGATIVE) Urine Glucose (UA) (NEGATIVE) Urine Ketones (NEGATIVE) Urine Occult Blood (NEGATIVE) Urine Nitrite (NEGATIVE) Urine Bilirubin (NEGATIVE) Urine Urobilinogen (0.2-1.0) mg/dL Ur Leukocyte Esterase (NEGATIVE) Urine RBC /HPF Urine WBC (0-5/HPF) /HPF Ur Epithelial Cells (NOT SEEN) /HPF Amorphous Sediment (NOT SEEN) /HPF Urine Bacteria (0-FEW/HPF) /HPF Urine Mucus (NOT SEEN) /LPF Urine HCG, Qual Rapid Strep: negative Meds: Medications Discontinued Medications Generic Name Dose Route Start Last Admin Trade Name Torin PRN Reason Stop Dose Admin Promethazine HCl 25 mg 12/21/18 17:16 12/21/18 17:23 Phenergan IM 12/21/18 17:17 25 mg ONETIME ONE Administration - Radiology Interpretation Free Text/Narrative:: [facility] Final Radiology Report Call: [phone] assistance Online chat: [email or web address] Name: LAKEISHA GUTIERREZ Age: 33Years F Date: 12/21/2018 SSN: -- : [id number] Study: CT ABDOMEN/PELVIS WO Requesting Physician: LATRICE CHANG Images: [id number] Addl Studies: Provided Clinical History: Contrast: Without Contrast Medium: Contrast Amount: Contrast Method: Page 1 of 2 PROCEDURE INFORMATION: Exam: CT Abdomen And Pelvis Without Contrast Exam date and time: 12/21/2018 5:27 PM Clinical history: 33 years old, female; Abdominal pain; Other: Left abdomen pain left flank pain hematuria TECHNIQUE: Imaging protocol: Computed tomography of the abdomen and pelvis without contrast. Radiation optimization: All CT scans at this facility use at least one of these dose optimization techniques: automated exposure control; mA and/or kV adjustment per patient size (includes targeted exams where dose is matched to clinical indication); or iterative reconstruction. COMPARISON: No relevant prior studies available. FINDINGS: Liver: Liver is geographic in appearance with areas of low density. Gallbladder and bile ducts: Normal. No calcified stones. No ductal dilation. Pancreas: Normal. No ductal dilation. Spleen: Normal. No splenomegaly. Adrenals: Normal. No mass. Kidneys and ureters: Normal. No hydronephrosis. No nephrolithiasis or urolithiasis. Stomach and bowel: Unremarkable. No obstruction. No mucosal thickening. Appendix: No evidence of appendicitis. Intraperitoneal space: Unremarkable. No free air. No significant fluid collection. Vasculature: Unremarkable. No abdominal aortic aneurysm. Lymph nodes: Unremarkable. No enlarged lymph nodes. Bladder: Unremarkable as visualized. Reproductive: Unremarkable as visualized. LAKEISHA GUTIERREZ | Final Radiology Report CONFIDENTIALITY STATEMENT This report is intended only for use by the referring physician, and only in accordance with law. If you received this in error, call [phone]. Page 2 of 2 Bones/joints: Unremarkable. No acute fracture. Soft tissues: Small fat-containing periumbilical hernia. IMPRESSION: Moderate heterogeneous areas of hepatic steatosis Thank you for allowing us to participate in the care of your patient. Dictated and Authenticated by: Perry Szymanski MD 12/21/2018 5:51 PM Central Time ([place] & [place]) Departure - Departure Time of Disposition: 17:56 Disposition: Home, Self-Care 01 Condition: Good Clinical Impression: Fatty liver, Microscopic hematuria Abdominal pain Qualifiers: Abdominal location: unspecified location Qualified Code(s): R10.9 - Unspecified abdominal pain - Discharge Information *PRESCRIPTION DRUG MONITORING PROGRAM REVIEWED*: No *COPY OF PRESCRIPTION DRUG MONITORING REPORT IN PATIENT JUANI: No Instructions: Abdominal Pain, Adult, [id number], Fatty Liver Forms: ED Department Discharge Additional Instructions: Rx: Zofran 4mg Rx: Dicyclomine 20mg Follow up in clinic for recheck this week. - My Orders Last 24 Hours: My Active Orders 12/21/18 16:19 CULTURE URINE [RM] Stat 12/21/18 16:51 CULTURE STREP A CONFIRMATION [RM] Stat STREP SCRN A RAPID W CULT CONF [RM] Stat 12/21/18 17:16 Abdomen Pelvis wo Cont [CT] Urgent - Assessment/Plan Last 24 Hours: My Active Orders 12/21/18 16:19 CULTURE URINE [RM] Stat 12/21/18 16:51 CULTURE STREP A CONFIRMATION [RM] Stat STREP SCRN A RAPID W CULT CONF [RM] Stat 12/21/18 17:16 Abdomen Pelvis wo Cont [CT] Urgent I have read and agree with the documentation that has been completed regarding this visit. By signing this record, I attest that the documentation was completed in my physical presence and is an accurate record of the encounter."
== END 2018-12-21 18:21 | disposition home or self-care (01) ==
LOC: DL.ED 16:19
DX: R10.12 Left upper quadrant pain (principal); R10.32 Left lower quadrant pain; K76.0 Fatty (change of) liver, not elsewhere classified; R31.29 Other microscopic hematuria; Z88.6 Allergy status to analgesic agent; Z88.8 Allergy status to other drugs, medicaments and biological substances
CPT/HCPCS: 36415; 74176; 80053; 81001; 81025; 82150; 83690; 85025; 87081; 87086; 87430; 96372; 99284; J2550

== ENCOUNTER 2019-02-14 16:42 | Emergency (ER) | payer MEDICAID ==
--- NOTE | 2019-02-14 17:24 | EDM.PDOC ---
ED HPI GENERAL MEDICAL PROBLEM - General Chief Complaint: ENT Problem Stated Complaint: SORE THROAT Time Seen by Provider: 02/14/19 17:24 Source of Information: Reports: Patient, RN, RN Notes Reviewed History Limitations: Reports: No Limitations - History of Present Illness INITIAL COMMENTS - FREE TEXT/NARRATIVE: patient presents to ER with complaint of sinus congestion, drainage, headache, sore throat, cough, and loss of voice. Patient states symptoms began with the sinus congestion on Friday. Patient denies nausea, vomiting, diarrhea. She does admit to feeling warm frequently, but is unsure if she has had a fever. Onset: Gradual Onset Date: 02/12/19 Generalized Pain Score (Numeric/FACES): 4 - Related Data Allergies Allergy/AdvReac Type Severity Reaction Status Date / Time aspirin Allergy Facial Verified 02/14/19 17:30 Swelling ibuprofen Allergy Hives Verified 02/14/19 17:30 ketorolac [From Toradol] Allergy Hives Verified 02/14/19 17:30 Home Meds: Home Meds Desogestrel-Ethinyl Estradiol [Juleber 28 Day Tablet] 1 each PO DAILY 09/16/16 [ History] Acetaminophen [Tylenol Extra Strength] 1,000 mg PO ASDIRECTED PRN 08/05/18 [ History] Celecoxib [Celebrex] 50 mg PO BID 08/05/18 [History] Past Medical History - Past Health History Medical/Surgical History: Denies Medical/Surgical History HEENT History: Reports: Impaired Vision Cardiovascular History: Reports: None Respiratory History: Reports: None Gastrointestinal History: Reports: None Genitourinary History: Reports: None 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 of Rt. hip Neurological History: Reports: Concussion Psychiatric History: Reports: Anxiety, Depression Endocrine/Metabolic History: Reports: Diabetes, Gestational, Obesity/BMI 30+ Hematologic History: Reports: Anemia, Blood Transfusion(s) Immunologic History: Reports: None Oncologic (Cancer) History: Reports: None Dermatologic History: Reports: None - Infectious Disease History Infectious Disease History: Reports: None - Past Surgical History Head Surgeries/Procedures: Reports: None Cardiovascular Surgical History: Reports: None Respiratory Surgical History: Reports: None GI Surgical History: Reports: None Female Surgical History: Reports: Section Neurological Surgical History: Reports: None Dermatological Surgical History: Reports: None Social & Family History - Family History Family Medical History: Noncontributory - Caffeine Use Caffeine Use: Reports: None Other Caffeine Use: 2 cups coffee/day - Living Situation & Occupation Living situation: Reports: with Significant Other, with Family Occupation: Employed ED ROS ENT - Review of Systems Review Of Systems: Comprehensive ROS is negative, except as noted in HPI. ED EXAM, ENT - Physical Exam Exam: See Below Exam Limited By: No Limitations General Appearance: Alert, WD/WN, No Apparent Distress Eye Exam: Bilateral Eye: EOMI, Normal Inspection Ears: Normal External Exam, Normal Canal, Hearing Grossly Normal, TM Dullness, TM Fluid Nose: Normal Inspection, Normal Mucousa, Nasal Discharge Mouth/Throat: Normal Inspection, Normal Gums, Normal Lips, Normal Teeth, Tonsillar Erythema (minimal) Head: Atraumatic, Normocephalic Neck: Normal Inspection, Supple, Non-Tender, Full Range of Motion Respiratory/Chest: No Respiratory Distress, Lungs Clear, Normal Breath Sounds, No Accessory Muscle Use, Chest Non-Tender Cardiovascular: Normal Peripheral Pulses, Regular Rate, Rhythm, No Edema, No Gallop, No JVD, No Murmur, No Rub GI/Abdominal: Normal Bowel Sounds, Soft, Non-Tender, No Organomegaly, No Distention, No Abnormal Bruit, No Mass (Female) Exam: Deferred Rectal (Female) Exam: Deferred Back: Normal Inspection, Full Range of Motion Extremities: Normal Inspection, Normal Range of Motion, Non-Tender, No Pedal Edema, Normal Capillary Refill Neurological: Alert, Oriented, CN II-XII Intact, Normal Cognition, Normal Gait, Normal Reflexes, No Motor/Sensory Deficits Psychiatric: Normal Affect, Normal Mood Skin: Warm, Dry, Intact, Normal Color, No Rash Lymphatic: No Adenopathy Course - Vital Signs Last Recorded V/S: Last Vital Signs Temp 98 F 02/14/19 17:27 Pulse 93 02/14/19 17:27 Resp 20 02/14/19 17:27 BP 134/73 02/14/19 17:27 Pulse Ox 98 02/14/19 17:27 - Orders/Labs/Meds Orders: Active Orders 24 hr Category Date Time Status CULTURE STREP A CONFIRMATION [RM] Stat Lab 02/14/19 17:25 Results STREP SCRN A RAPID W CULT CONF [RM] Stat Lab 02/14/19 17:25 Results Labs: influenza A: Negative Influenza B: Negative Rapid Strep: Negative Departure - Departure Time of Disposition: 18:23 Disposition: Home, Self-Care 01 Condition: Fair Clinical Impression: Sinusitis Qualifiers: Sinusitis location: maxillary Chronicity: acute Recurrence: non-recurrent Qualified Code(s): J01.00 - Acute maxillary sinusitis, unspecified - Discharge Information *PRESCRIPTION DRUG MONITORING PROGRAM REVIEWED*: No *COPY OF PRESCRIPTION DRUG MONITORING REPORT IN PATIENT JUANI: No Instructions: Sinusitis, Adult, [id number], How to Perform a Sinus Rinse, [id number], Upper Respiratory Infection, Adult, [id number] Forms: ED Department Discharge Additional Instructions: Use an over the counter decongestant as directed for sinus congestion and cough May use over the counter cough suppressant as directed Drink plenty of water Rest If no improvement after 10 days of illness, follow up with your primary care facility Sepsis Event Note - Focused Exam Vital Signs: Vital Signs Temp Pulse Resp BP Pulse Ox 02/14/19 17:27 98 F 93 20 134/73 98 Date Exam was Performed: 02/14/19 Time Exam was Performed: 18:22 - My Orders Last 24 Hours: My Active Orders 02/14/19 17:25 CULTURE STREP A CONFIRMATION [RM] Stat STREP SCRN A RAPID W CULT CONF [RM] Stat - Assessment/Plan Last 24 Hours: My Active Orders 02/14/19 17:25 CULTURE STREP A CONFIRMATION [RM] Stat STREP SCRN A RAPID W CULT CONF [RM] Stat
[2019-02-14 17:30] VITALS: BP 134/73; PULSE 93
== END 2019-02-14 18:43 | disposition home or self-care (01) ==
LOC: DL.ED 16:42
DX: J01.00 Acute maxillary sinusitis, unspecified (principal); E66.9 Obesity, unspecified; Z88.6 Allergy status to analgesic agent; Z68.36 Body mass index [BMI] 36.0-36.9, adult
CPT/HCPCS: 87081; 87430; 87804; 99284

== ENCOUNTER 2019-03-18 14:35 | Emergency (ER) | payer BC, MEDICAID ==
[2019-03-18 14:46] VITALS: BP 119/76; PULSE 92
--- NOTE | 2019-03-18 14:58 | EDM.PDOC ---
ED HPI GENERAL MEDICAL PROBLEM - General Chief Complaint: Respiratory Problem Stated Complaint: COUGH/CHEST HURTS Time Seen by Provider: 03/18/19 14:58 Source of Information: Reports: Patient, Old Records, RN, RN Notes Reviewed History Limitations: Reports: No Limitations - History of Present Illness INITIAL COMMENTS - FREE TEXT/NARRATIVE: Pt presents to ER from home by POV with c/o two days duration of cough with yellow sputum production, fever, runny nose, and generalized body aches. Pt has 2 children that tested positive for Influenza B this week. Pt denies nausea, vomiting, sore throat, rash, or abdominal pain. She admits to headache. Pt states there is absolutely no possibility of . 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 Chest Pain Score (Numeric/FACES): 7 - Related Data Allergies Allergy/AdvReac Type Severity Reaction Status Date / Time aspirin Allergy Facial Verified 03/18/19 14:46 Swelling ibuprofen Allergy Hives Verified 03/18/19 14:46 ketorolac [From Toradol] Allergy Hives Verified 03/18/19 14:46 Home Meds: Home Meds Desogestrel-Ethinyl Estradiol [Augeber 28 Day Tablet] 1 each PO DAILY 09/16/16 [ History] Acetaminophen [Tylenol Extra Strength] 1,000 mg PO ASDIRECTED PRN 08/05/18 [ History] Celecoxib [Celebrex] 50 mg PO BID 08/05/18 [History] metFORMIN [Glucophage XR] 1,000 mg PO BIDMEALS 03/18/19 [History] Past Medical History - Past Health History Medical/Surgical History: Denies Medical/Surgical History HEENT History: Reports: Impaired Vision Cardiovascular History: Reports: None Respiratory History: Reports: None Gastrointestinal History: Reports: None Genitourinary History: Reports: None 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 of Rt. hip Neurological History: Reports: Concussion Psychiatric History: Reports: Anxiety, Depression Endocrine/Metabolic History: Reports: Diabetes, Gestational, Obesity/BMI 30+ Hematologic History: Reports: Anemia, Blood Transfusion(s) Immunologic History: Reports: None Oncologic (Cancer) History: Reports: None Dermatologic History: Reports: None - Infectious Disease History Infectious Disease History: Reports: None - Past Surgical History Head Surgeries/Procedures: Reports: None Cardiovascular Surgical History: Reports: None Respiratory Surgical History: Reports: None GI Surgical History: Reports: None Female Surgical History: Reports: Section Neurological Surgical History: Reports: None Dermatological Surgical History: Reports: None Social & Family History - Family History Family Medical History: Noncontributory - Tobacco Use Smoking Status *Q: Never Smoker Second Hand Smoke Exposure: No - Caffeine Use Caffeine Use: Reports: Coffee Other Caffeine Use: 2 cups coffee/day - Recreational Drug Use Recreational Drug Use: No - Living Situation & Occupation Living situation: Reports: with Significant Other, with Family Occupation: Employed ED ROS GENERAL - Review of Systems Review Of Systems: Comprehensive ROS is negative, except as noted in HPI. ED EXAM, GENERAL - Physical Exam Exam: See Below Exam Limited By: No Limitations General Appearance: Alert, WD/WN, No Apparent Distress, Anxious, Obese Eye Exam: Bilateral Eye: Normal Inspection Ears: Normal External Exam, Normal Canal, Hearing Grossly Normal, Normal TMs Nose: No Blood, Clear Rhinorrhea Throat/Mouth: Normal Inspection, Normal Lips, Normal Teeth, Normal Gums, Normal Oropharynx, Normal Voice, No Airway Compromise Head: Atraumatic, Normocephalic Neck: Normal Inspection, Supple, Non-Tender, Full Range of Motion. No: Lymphadenopathy (L), Lymphadenopathy (R) Respiratory/Chest: No Respiratory Distress, Lungs Clear, No Accessory Muscle Use , Chest Non-Tender. No: Rales, Rhonchi, Wheezing, Stridor Cardiovascular: Regular Rate, Rhythm GI/Abdominal: Normal Bowel Sounds, Soft, Non-Tender, No Organomegaly, No Distention, No Abnormal Bruit, No Mass Back Exam: Normal Inspection Extremities: Normal Inspection Neurological: Alert, Oriented, CN II-XII Intact, Normal Cognition, Normal Gait, No Motor/Sensory Deficits Psychiatric: Anxious Skin Exam: Warm, Dry, Intact, Normal Color, No Rash Course - Vital Signs Last Recorded V/S: Last Vital Signs Temp 97.2 F 03/18/19 14:43 Pulse 92 03/18/19 14:43 Resp 16 03/18/19 14:43 BP 119/76 03/18/19 14:43 Pulse Ox 98 03/18/19 14:43 - Orders/Labs/Meds Orders: Active Orders 24 hr Category Date Time Status Chest 2V [CR] Stat Exams 03/18/19 15:30 Ordered Labs: Influenza B: POSITIVE Meds: Medications Discontinued Medications Generic Name Dose Route Start Last Admin Trade Name Torin PRN Reason Stop Dose Admin Oseltamivir Phosphate 75 mg 03/18/19 15:27 03/18/19 15:34 Tamiflu PO 03/18/19 15:28 75 mg ONETIME ONE Administration Promethazine HCl/Codeine 10 ml 03/18/19 15:28 03/18/19 15:35 Phenergan With Codeine PO 03/18/19 15:29 10 ml ONETIME ONE Administration Departure - Departure Time of Disposition: 15:45 Disposition: Home, Self-Care 01 Condition: Good Clinical Impression: Influenza B - Discharge Information *PRESCRIPTION DRUG MONITORING PROGRAM REVIEWED*: Not Applicable *COPY OF PRESCRIPTION DRUG MONITORING REPORT IN PATIENT JUANI: Not Applicable Instructions: Influenza, Adult, [id number] Forms: ED Department Discharge Additional Instructions: Rx: Tamiflu 75mg Rx: Tessalon Perles 200mg Follow up in clinic if not improving in 5 days. Sepsis Event Note - Evaluation Sepsis Screening Result: No Definite Risk - Focused Exam Vital Signs: Vital Signs Temp Pulse Resp BP Pulse Ox 03/18/19 14:43 97.2 F 92 16 119/76 98 Date Exam was Performed: 03/18/19 Time Exam was Performed: 15:43 - My Orders Last 24 Hours: My Active Orders 03/18/19 15:30 Chest 2V [CR] Stat - Assessment/Plan Last 24 Hours: My Active Orders 03/18/19 15:30 Chest 2V [CR] Stat
[2019-03-18] MEDS ORDERED: Oseltamivir 75 MG Cap PO ONE (15:27)
[2019-03-18] MEDS ORDERED: Codeine/Promethazine 10-6.25 MG/5 ML Syrup 5 ML UD Cup PO ONE (15:28)
== END 2019-03-18 15:55 | disposition home or self-care (01) ==
LOC: DL.ED 14:35
DX: J10.1 Influenza due to other identified influenza virus with other respiratory manifestations (principal); E66.9 Obesity, unspecified; Z88.6 Allergy status to analgesic agent
CPT/HCPCS: 71046; 87804; 99283; A9270

== ENCOUNTER 2019-10-17 12:43 | Emergency (ER) | payer MEDICAID ==
[2019-10-17 13:37] VITALS: BP 123/70; PULSE 84
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
[2019-10-17] MEDS ORDERED: Dexamethasone 4 MG/ML SDV IM ONE (14:35)
== END 2019-10-17 14:56 | disposition home or self-care (01) ==
LOC: DL.ED 12:43
DX: M54.16 Radiculopathy, lumbar region (principal); E11.9 Type 2 diabetes mellitus without complications; E66.9 Obesity, unspecified; Z88.6 Allergy status to analgesic agent; Z68.21 Body mass index [BMI] 21.0-21.9, adult
CPT/HCPCS: 96372; 99283; J1100; J2360

== ENCOUNTER 2020-04-02 17:31 | Emergency (ER) | payer MEDICAID ==
[2020-04-02 17:35] VITALS: BP 122/56; PULSE 76
--- NOTE | 2020-04-02 18:40 | EDM.PDOC ---
<Elissa Barron - Last Filed: 04/02/20 20:32> ED HPI GENERAL MEDICAL PROBLEM - General Chief Complaint: ENT Problem Time Seen by Provider: 04/02/20 17:55 - Related Data Allergies Allergy/AdvReac Type Severity Reaction Status Date / Time aspirin Allergy Facial Verified 04/02/20 17:32 Swelling ibuprofen Allergy Hives Verified 04/02/20 17:32 ketorolac [From Toradol] Allergy Hives Verified 04/02/20 17:32 Home Meds: Home Meds desogestreL-ethinyl estradioL [Juleber 28 Day Tablet] 1 each PO DAILY 09/16/16 [History] Acetaminophen [Tylenol Extra Strength] 1,000 mg PO ASDIRECTED PRN 08/05/18 [History] Celecoxib [Celebrex] 50 mg PO BID 08/05/18 [History] metFORMIN [Glucophage XR] 1,000 mg PO BIDMEALS 03/18/19 [History] Pioglitazone [Actos] 30 mg PO DAILY 04/02/20 [History] Departure - Departure Time of Disposition: 20:32 Disposition: Home, Self-Care 01 Clinical Impression: Weakness - Discharge Information *PRESCRIPTION DRUG MONITORING PROGRAM REVIEWED*: Not Applicable *COPY OF PRESCRIPTION DRUG MONITORING REPORT IN PATIENT JUANI: Not Applicable Referrals: Ariela Patton MD [Primary Care Provider] - Forms: ED Department Discharge Additional Instructions: Drink plenty of water Tylenol and ibuprofen as needed Follow up with primary care provider 3-5 days <Lydia Connors - Last Filed: 04/03/20 07:07> ED HPI GENERAL MEDICAL PROBLEM - General Source of Information: Reports: Patient, RN, RN Notes Reviewed History Limitations: Reports: No Limitations - History of Present Illness INITIAL COMMENTS - FREE TEXT/NARRATIVE: Patient presents to the ED via personal vehicle with complaints of fatigue, lightheadedness, and nausea with one bout of emesis. The patient states these symptoms began abruptly approximately one hour prior; she then called EMS. She reports she was able to eat her noon meal without complication; her emesis this afternoon did not contain any food. She denies fever, cough, sore throat, chest pain, shortness of breath, dyspepsia, hematemesis, dysuria, hematuria, melena, or hematochezia. She does attest to shaking chills. She dates her LMP at 03/28/20 and states she has no concerns regarding . She does attest to a history of a COVID infection in mid-December 2019; she denies receiving the COVID vaccine. She denies tobacco, alcohol, or recreational drug use. 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 of Rt. hip Neurological History: Reports: Concussion Psychiatric History: Reports: Anxiety, Depression Endocrine/Metabolic History: Reports: Diabetes, Gestational, Obesity/BMI 30+ Hematologic History: Reports: Anemia, Blood Transfusion(s) Immunologic History: Reports: None Oncologic (Cancer) History: Reports: None Dermatologic History: Reports: None - Infectious Disease History Infectious Disease History: Reports: None, Novel Coronavirus - Past Surgical History Head Surgeries/Procedures: Reports: None Cardiovascular Surgical History: Reports: None Respiratory Surgical History: Reports: None GI Surgical History: Reports: None Female Surgical History: Reports: Section Neurological Surgical History: Reports: None Dermatological Surgical History: Reports: None Social & Family History - Family History Family Medical History: No Pertinent Family History - Tobacco Use Tobacco Use Status *Q: Never Tobacco User - Caffeine Use Caffeine Use: Reports: Coffee Other Caffeine Use: 2 cups coffee/day - Recreational Drug Use Recreational Drug Use: No - Living Situation & Occupation Living situation: Reports: with Significant Other, with Family Occupation: Employed ED ROS GENERAL - Review of Systems Review Of Systems: Comprehensive ROS is negative, except as noted in HPI. ED EXAM, GENERAL - Physical Exam Exam: See Below Exam Limited By: No Limitations General Appearance: Alert, No Apparent Distress Eye Exam: Bilateral Eye: EOMI, Normal Inspection, PERRL Throat/Mouth: Normal Inspection, Normal Voice, No Airway Compromise Head: Atraumatic, Normocephalic Respiratory/Chest: No Respiratory Distress, Lungs Clear, Normal Breath Sounds, No Accessory Muscle Use, Chest Non-Tender Cardiovascular: Normal Peripheral Pulses, Regular Rate, Rhythm, No Edema, No Gallop, No JVD, No Murmur, No Rub Peripheral Pulses: 2+: Radial (L), Radial (R) GI/Abdominal: Normal Bowel Sounds, Soft, Non-Tender, No Distention, No Mass, Pelvis Stable (Female) Exam: Deferred Rectal (Female) Exam: Deferred Back Exam: Normal Inspection, Full Range of Motion. No: CVA Tenderness (L), CVA Tenderness (R) Extremities: Normal Inspection, Normal Range of Motion, Non-Tender, Normal Capillary Refill, No Pedal Edema Neurological: Alert, Oriented, CN II-XII Intact, Normal Cognition, No Motor/Sensory Deficits Psychiatric: Depressed Mood, Flat Affect Skin Exam: Warm, Dry, Intact, Normal Color, No Rash. No: Ecchymosis, Erythema, Jaundice, Mottled, Pallor, Petechiae Course - Vital Signs Last Recorded V/S: Last Vital Signs Temp 98.6 F 04/02/20 17:33 Pulse 76 04/02/20 17:33 Resp 20 04/02/20 17:33 BP 122/56 L 04/02/20 17:33 Pulse Ox 99 04/02/20 17:33 - Orders/Labs/Meds Orders: Active Orders 24 hr Category Date Time Status CULTURE URINE [RM] Stat Lab 04/02/20 19:11 Received Labs: Laboratory Tests 04/02/20 04/02/20 04/02/20 Range/Units 18:19 18:19 18:19 WBC 7.0 (5.0-10.0) 10^3/uL RBC 4.35 (4.2-5.4) 10^6/uL Hgb 12.7 (12.0-16.0) g/dL Hct 39.0 (37.0-47.0) % MCV 89.7 (80-100) fL MCH 29.2 (27.0-34.0) pg MCHC 32.6 L (33.0-35.0) g/dL Plt Count 245 (150-450) 10^3/uL Neut % (Auto) 59.9 (42.2-75.2) % Lymph % (Auto) 30.8 (20.5-50.1) % [place] % (Auto) 7.4 (2-8) % Eos % (Auto) 1.3 (1.0-3.0) % Baso % (Auto) 0.6 (0.0-1.0) % Sodium 138 (136-145) mmol/L Potassium 3.8 (3.5-5.1) mmol/L Chloride 103 (98-107) mmol/L Carbon Dioxide 25 (21-32) mmol/L Anion Gap 13.8 H (7-13) mEq/L BUN 12 (7-18) mg/dL Creatinine 0.69 (0.55-1.02) mg/dL Est Cr Clr Drug Dosing 118.93 mL/min Estimated GFR (MDRD) > 60 BUN/Creatinine Ratio 17.4 (No establ ref range) Glucose 97 (74-99) mg/dL Lactic Acid 1.5 (0.4-2.0) mmol/L Calcium 8.4 L (8.5-10.1) mg/dL Magnesium 1.9 (1.8-2.4) mg/dL Total Bilirubin 0.4 (0.2-1.0) mg/dL AST 19 (15-37) U/L ALT 28 (14-59) U/L Alkaline Phosphatase 99 (46-116) U/L C-Reactive Protein 0.5 (0.0-0.9) mg/dL Total Protein 7.6 (6.4-8.2) g/dL Albumin 3.5 (3.4-5.0) g/dL Globulin 4.1 Albumin/Globulin Ratio 0.9 Urine Color (YELLOW) Urine Appearance (CLEAR) Urine pH (5.0-9.0) Ur Specific [place] (1.005-1.030) Urine Protein (NEGATIVE) Urine Glucose (UA) (NEGATIVE) Urine Ketones (NEGATIVE) Urine Occult Blood (NEGATIVE) Urine Nitrite (NEGATIVE) Urine Bilirubin (NEGATIVE) Urine Urobilinogen (0.2-1.0) mg/dL Ur Leukocyte Esterase (NEGATIVE) Urine RBC /HPF Urine WBC (0-5/HPF) /HPF Ur Epithelial Cells (NOT SEEN) /HPF Amorphous Sediment (NOT SEEN) /HPF Urine Bacteria (0-FEW/HPF) /HPF Urine Mucus (NOT SEEN) /LPF Urine HCG, Qual SARS CoV-2 RNA Rapid CHE (NEGATIVE) 04/02/20 04/02/20 04/02/20 Range/Units 18:26 19:10 19:11 WBC (5.0-10.0) 10^3/uL RBC (4.2-5.4) 10^6/uL Hgb (12.0-16.0) g/dL Hct (37.0-47.0) % MCV (80-100) fL MCH (27.0-34.0) pg MCHC (33.0-35.0) g/dL Plt Count (150-450) 10^3/uL Neut % (Auto) (42.2-75.2) % Lymph % (Auto) (20.5-50.1) % [place] % (Auto) (2-8) % Eos % (Auto) (1.0-3.0) % Baso % (Auto) (0.0-1.0) % Sodium (136-145) mmol/L Potassium (3.5-5.1) mmol/L Chloride (98-107) mmol/L Carbon Dioxide (21-32) mmol/L Anion Gap (7-13) mEq/L BUN (7-18) mg/dL Creatinine (0.55-1.02) mg/dL Est Cr Clr Drug Dosing mL/min Estimated GFR (MDRD) BUN/Creatinine Ratio (No establ ref range) Glucose (74-99) mg/dL Lactic Acid (0.4-2.0) mmol/L Calcium (8.5-10.1) mg/dL Magnesium (1.8-2.4) mg/dL Total Bilirubin (0.2-1.0) mg/dL AST (15-37) U/L ALT (14-59) U/L Alkaline Phosphatase (46-116) U/L C-Reactive Protein (0.0-0.9) mg/dL Total Protein (6.4-8.2) g/dL Albumin (3.4-5.0) g/dL Globulin Albumin/Globulin Ratio Urine Color Light yellow (YELLOW) Urine Appearance Slightly cloudy (CLEAR) Urine pH 6.0 (5.0-9.0) Ur Specific [place] 1.015 (1.005-1.030) Urine Protein Negative (NEGATIVE) Urine Glucose (UA) Negative (NEGATIVE) Urine Ketones Negative (NEGATIVE) Urine Occult Blood Negative (NEGATIVE) Urine Nitrite Negative (NEGATIVE) Urine Bilirubin Negative (NEGATIVE) Urine Urobilinogen 0.2 (0.2-1.0) mg/dL Ur Leukocyte Esterase Trace H (NEGATIVE) Urine RBC Not seen /HPF Urine WBC 5-10 H (0-5/HPF) /HPF Ur Epithelial Cells Few (NOT SEEN) /HPF Amorphous Sediment Few (NOT SEEN) /HPF Urine Bacteria Few (0-FEW/HPF) /HPF Urine Mucus Rare (NOT SEEN) /LPF Urine HCG, Qual Negative SARS CoV-2 RNA Rapid CHE Negative (NEGATIVE) Sepsis Event Note (ED) - Evaluation Sepsis Screening Result: No Definite Risk - My Orders Last 24 Hours: My Active Orders 04/02/20 19:11 CULTURE URINE [RM] Stat - Assessment/Plan Last 24 Hours: My Active Orders 04/02/20 19:11 CULTURE URINE [RM] Stat
[2020-04-02 18:47] LABS: ANION GAP 13.8 mEq/L (7-13); CHLORIDE,CL 103 mmol/L (98-107); SODIUM,NA 138 mmol/L (136-145)
== END 2020-04-02 21:12 | disposition home or self-care (01) ==
LOC: DL.ED 17:31
DX: R53.1 Weakness (principal); E66.9 Obesity, unspecified; Z68.35 Body mass index [BMI] 35.0-35.9, adult; Z79.84 Long term (current) use of oral hypoglycemic drugs; Z79.899 Other long term (current) drug therapy; Z20.822 Contact with and (suspected) exposure to COVID-19
CPT/HCPCS: 36415; 80053; 81001; 81025; 83605; 83735; 85025; 86140; 87086; 99283; U0002

== ENCOUNTER 2020-07-01 11:17 | Emergency (ER) | payer MEDICAID ==
[2020-07-01 11:38] VITALS: BP 123/84; PULSE 89
--- NOTE | 2020-07-01 12:04 | EDM.PDOC ---
ED HPI GENERAL MEDICAL PROBLEM - General Chief Complaint: ENT Problem Stated Complaint: EAR ACHE / HEADACHE Time Seen by Provider: 07/01/20 11:40 Source of Information: Reports: Patient, RN, RN Notes Reviewed History Limitations: Reports: No Limitations - History of Present Illness INITIAL COMMENTS - FREE TEXT/NARRATIVE: Gerda is a 35 y/o female who presents to the ED via personal vehicle with complaints of right ear tenderness. The patient reports she woke from pain to her right ear at approximately 0400 this morning which has maintained is severity. In addition to the ear pain she notes tenderness and pressure to her right maxillary sinus. She has taken one dose of Tylenol 650mg at 0900 this morning which offered her little relief of symptoms. The patient reports a history of environmental allergies, but has not taken her normal antihistamine for the past two days as she has been out of it. She denies recent illness, fever, shaking chills, sore throat, chest tightness, palpitations, or shortness of breath. She does attest to headache and dry cough. The patient denies tobacco, alcohol, or recreational drug use. 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 Right Ear Pain Score (Numeric/FACES): 6 - Related Data Allergies Allergy/AdvReac Type Severity Reaction Status Date / Time aspirin Allergy Facial Verified 07/01/20 11:35 Swelling ibuprofen Allergy Hives Verified 07/01/20 11:35 ketorolac [From Toradol] Allergy Hives Verified 07/01/20 11:35 Home Meds: Home Meds desogestreL-ethinyl estradioL [Augeber 28 Day Tablet] 1 each PO DAILY 09/16/16 [History] Acetaminophen [Tylenol Extra Strength] 1,000 mg PO ASDIRECTED PRN 08/05/18 [History] Celecoxib [Celebrex] 50 mg PO BID 08/05/18 [History] metFORMIN [Glucophage XR] 1,000 mg PO BIDMEALS 03/18/19 [History] Pioglitazone [Actos] 30 mg PO DAILY 04/02/20 [History] Past Medical History - Past Health History Medical/Surgical History: Denies Medical/Surgical History HEENT History: Reports: Impaired Vision Cardiovascular History: Reports: None Respiratory History: Reports: None Gastrointestinal History: Reports: None Genitourinary History: Reports: 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 of Rt. hip Neurological History: Reports: Concussion Psychiatric History: Reports: Anxiety, Depression Endocrine/Metabolic History: Reports: Diabetes, Gestational, Obesity/BMI 30+ Hematologic History: Reports: Anemia, Blood Transfusion(s) Immunologic History: Reports: None Oncologic (Cancer) History: Reports: None Dermatologic History: Reports: None - Infectious Disease History Infectious Disease History: Reports: None, Novel Coronavirus - Past Surgical History Head Surgeries/Procedures: Reports: None Cardiovascular Surgical History: Reports: None Respiratory Surgical History: Reports: None GI Surgical History: Reports: None Female Surgical History: Reports: Section Neurological Surgical History: Reports: None Dermatological Surgical History: Reports: None Social & Family History - Family History Family Medical History: No Pertinent Family History - Tobacco Use Tobacco Use Status *Q: Never Tobacco User Second Hand Smoke Exposure: No - Caffeine Use Caffeine Use: Reports: Coffee Other Caffeine Use: 2 cups coffee/day - Recreational Drug Use Recreational Drug Use: No - Living Situation & Occupation Living situation: Reports: with Significant Other, with Family Occupation: Employed ED ROS ENT - Review of Systems Review Of Systems: Comprehensive ROS is negative, except as noted in HPI. ED EXAM, ENT - Physical Exam Exam: See Below Exam Limited By: No Limitations General Appearance: Alert, No Apparent Distress Eye Exam: Bilateral Eye: EOMI, Normal Inspection, PERRL (3mm) Ears: Normal External Exam, Normal Canal, Hearing Grossly Normal, Auricular Tenderness (To right), TM Dullness (Bilaterally), TM Fluid (Serous, bilaterally). No: Auricular Erythema, Auricular Ecchymosis, Mastoid Swelling, Mastoid Tenderness, TM Bulging, TM Erythema, TM Perforation, TM Vesicles Nose: No Blood, Clear Rhinorrhea, Injected Turbinates. No: Nasal Tenderness Mouth/Throat: Normal Inspection, Normal Gums, Normal Lips, Normal Oropharynx, Normal Teeth. No: Muffled Voice, Pharyngeal Erythema, Tongue Swelling, Tonsillar Erythema, Tonsillar Exudates, Tonsillar Swelling Head: Atraumatic, Normocephalic, Sinus Tenderness (To right) Neck: Normal Inspection, Supple, Non-Tender, Full Range of Motion, Lymphadenopathy (R) (To anterior cervical chain). No: Lymphadenopathy (L) Respiratory/Chest: No Respiratory Distress, Lungs Clear, Normal Breath Sounds, No Accessory Muscle Use, Chest Non-Tender Cardiovascular: Normal Peripheral Pulses, Regular Rate, Rhythm, No Edema, No Gallop, No JVD, No Murmur, No Rub Neurological: Alert, Oriented, CN II-XII Intact, Normal Cognition, Normal Gait, No Motor/Sensory Deficits Psychiatric: Normal Affect, Normal Mood Skin: Warm, Dry, Intact, Normal Color, No Rash Course - Vital Signs Last Recorded V/S: Last Vital Signs Temp 98.1 F 07/01/20 11:37 Pulse 89 07/01/20 11:37 Resp 18 07/01/20 11:37 BP 123/84 07/01/20 11:37 Pulse Ox 97 07/01/20 11:37 - Re-Assessments/Exams Free Text/Narrative Re-Assessment/Exam: 07/01/20 Discussed supportive cares for allergic rhinitis and eustachian tube dysfunction, as well as red flag signs and symptoms which would warrant reevaluation. Patient verbalized understanding and agreement with the plan of care. Departure - Departure Time of Disposition: 11:58 Disposition: Home, Self-Care 01 Condition: Good Clinical Impression: Eustachian tube dysfunction Qualifiers: Laterality: bilateral Qualified Code(s): H69.83 - Other specified disorders of Eustachian tube, bilateral Allergic rhinitis Qualifiers: Allergic rhinitis trigger: unspecified Allergic rhinitis seasonality: seasonal Qualified Code(s): J30.2 - Other seasonal allergic rhinitis - Discharge Information *PRESCRIPTION DRUG MONITORING PROGRAM REVIEWED*: Not Applicable *COPY OF PRESCRIPTION DRUG MONITORING REPORT IN PATIENT JUANI: Not Applicable Instructions: Eustachian Tube Dysfunction, Allergic Rhinitis, Adult, [id number] Forms: ED Department Discharge Additional Instructions: Rx: cetirizine Rx: fluticasone propionate 1.) You may take acetaminophen (Tylenol) 650mg every six hours for headache and ear tenderness. 2.) Drink plenty of water to stay hydrated and keep secretions thin. 3.) Follow up with primary care provider, or return to the emergency department, with symptoms that worsen or do not improve in 5-7 days. Sepsis Event Note (ED) - Evaluation Sepsis Screening Result: No Definite Risk - Focused Exam Vital Signs: Vital Signs Temp Pulse Resp BP Pulse Ox 07/01/20 11:37 98.1 F 89 18 123/84 97
== END 2020-07-01 12:20 | disposition home or self-care (01) ==
LOC: DL.ED 11:17
DX: H69.83 Other specified disorders of Eustachian tube, bilateral (principal); J30.2 Other seasonal allergic rhinitis; E66.9 Obesity, unspecified; Z88.8 Allergy status to other drugs, medicaments and biological substances; Z88.6 Allergy status to analgesic agent; Z86.16 Personal history of COVID-19; Z68.36 Body mass index [BMI] 36.0-36.9, adult
CPT/HCPCS: 99282; 99283

== ENCOUNTER 2020-07-19 17:44 | Emergency (ER) | payer MEDICAID ==
[2020-07-19 18:22] VITALS: BP 124/60; PULSE 73
--- NOTE | 2020-07-19 18:23 | EDM.PDOC ---
ED HPI GENERAL MEDICAL PROBLEM - General Chief Complaint: General Stated Complaint: SWELLING BOTH LEGS PAIN IN BOTH Time Seen by Provider: 07/19/20 17:45 Source of Information: Reports: Patient, Old Records, RN, RN Notes Reviewed History Limitations: Reports: No Limitations - History of Present Illness INITIAL COMMENTS - FREE TEXT/NARRATIVE: Pt presents to ER with c/o edema x2 weeks. She was seen in clinic but has not improved with elevating her legs and limiting salt. Pt denies chest pain, shortness of breath, or orthopnea. Pt feels that the hotter the weather gets, the more edema she has. Onset: Gradual Duration: Week(s): (2), Constant, Getting Worse Location: Reports: Lower Extremity, Left, Lower Extremity, Right Quality: Reports: Pressure Severity: Moderate Improves with: Reports: None Worsens with: Reports: None - Related Data Allergies Allergy/AdvReac Type Severity Reaction Status Date / Time aspirin Allergy Facial Verified 07/19/20 18:19 Swelling ibuprofen Allergy Hives Verified 07/19/20 18:19 ketorolac [From Toradol] Allergy Hives Verified 07/19/20 18:19 Home Meds: Home Meds desogestreL-ethinyl estradioL [Augeber 28 Day Tablet] 1 each PO DAILY 09/16/16 [History] Acetaminophen [Tylenol Extra Strength] 1,000 mg PO ASDIRECTED PRN 08/05/18 [History] Celecoxib [Celebrex] 50 mg PO BID 08/05/18 [History] metFORMIN [Glucophage XR] 1,000 mg PO BIDMEALS 03/18/19 [History] Pioglitazone [Actos] 30 mg PO DAILY 04/02/20 [History] Past Medical History - Past Health History Medical/Surgical History: Denies Medical/Surgical History HEENT History: Reports: Impaired Vision Cardiovascular History: Reports: None Respiratory History: Reports: None Gastrointestinal History: Reports: None Genitourinary History: Reports: None 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 of Rt. hip Neurological History: Reports: Concussion Psychiatric History: Reports: Anxiety, Depression Endocrine/Metabolic History: Reports: Diabetes, Gestational, Obesity/BMI 30+ Hematologic History: Reports: Anemia, Blood Transfusion(s) Immunologic History: Reports: None Oncologic (Cancer) History: Reports: None Dermatologic History: Reports: None - Infectious Disease History Infectious Disease History: Reports: None, Novel Coronavirus - Past Surgical History Head Surgeries/Procedures: Reports: None Cardiovascular Surgical History: Reports: None Respiratory Surgical History: Reports: None GI Surgical History: Reports: None Female Surgical History: Reports: Section Neurological Surgical History: Reports: None Dermatological Surgical History: Reports: None Social & Family History - Family History Family Medical History: No Pertinent Family History - Caffeine Use Caffeine Use: Reports: Coffee Other Caffeine Use: 2 cups coffee/day - Living Situation & Occupation Living situation: Reports: with Significant Other, with Family Occupation: Employed ED ROS GENERAL - Review of Systems Review Of Systems: Comprehensive ROS is negative, except as noted in HPI. ED EXAM, GENERAL - Physical Exam Exam: See Below Exam Limited By: No Limitations General Appearance: Alert, WD/WN, No Apparent Distress, Obese Nose: Normal Inspection Throat/Mouth: Normal Lips, Normal Voice, No Airway Compromise Head: Atraumatic, Normocephalic Neck: Normal Inspection Respiratory/Chest: No Respiratory Distress, Lungs Clear, Normal Breath Sounds, No Accessory Muscle Use, Chest Non-Tender Cardiovascular: Regular Rate, Rhythm, Other (+1 pitting edema to B/L knees) GI/Abdominal: Normal Bowel Sounds, Soft, Non-Tender Back Exam: Normal Inspection Extremities: Normal Range of Motion, Normal Capillary Refill, Pedal Edema Neurological: Alert, Oriented, No Motor/Sensory Deficits Psychiatric: Normal Mood Skin Exam: Warm, Dry, Intact, Normal Color, No Rash Course - Vital Signs Last Recorded V/S: Last Vital Signs Temp 97.5 F 07/19/20 18:21 Pulse 73 07/19/20 18:21 Resp 20 07/19/20 18:21 BP 124/60 07/19/20 18:21 Pulse Ox 97 07/19/20 18:21 Departure - Departure Time of Disposition: 18:22 Disposition: Home, Self-Care 01 Condition: Good Clinical Impression: Peripheral edema - Discharge Information *PRESCRIPTION DRUG MONITORING PROGRAM REVIEWED*: Not Applicable *COPY OF PRESCRIPTION DRUG MONITORING REPORT IN PATIENT JUANI: Not Applicable Instructions: Peripheral Edema Forms: ED Department Discharge Additional Instructions: Rx: Lasix (Furosemide) 20mg Eat a banana every day while taking Lasix. Limit salt. Elevate your legs as much as possible. Sepsis Event Note (ED) - Focused Exam Vital Signs: Vital Signs Temp Pulse Resp BP Pulse Ox 07/19/20 18:21 97.5 F 73 20 124/60 97
== END 2020-07-19 18:31 | disposition home or self-care (01) ==
LOC: DL.ED 17:44
DX: R60.0 Localized edema (principal); E66.9 Obesity, unspecified; Z68.30 Body mass index [BMI] 30.0-30.9, adult; Z79.82 Long term (current) use of aspirin; Z88.8 Allergy status to other drugs, medicaments and biological substances; Z88.6 Allergy status to analgesic agent
CPT/HCPCS: 99283

== ENCOUNTER 2020-09-26 18:18 | Emergency (ER) | payer BC, MEDICAID ==
[2020-09-26 19:01] VITALS: BP 121/70; PULSE 81
[2020-09-26] MEDS ORDERED: predniSONE 20 MG Tab PO ONE (19:27)
--- NOTE | 2020-09-26 19:37 | EDM.PDOC ---
ED HPI GENERAL MEDICAL PROBLEM - General Chief Complaint: Allergic Reaction Stated Complaint: ALLERGIC REACTION ALL OVER Time Seen by Provider: 09/26/20 19:20 Source of Information: Reports: Patient History Limitations: Reports: No Limitations - History of Present Illness INITIAL COMMENTS - FREE TEXT/NARRATIVE: This 35 yo female reports to the ED with a rash over several body parts. The patient has noticed her symptoms over the past 4 days. The patient reports she took Benadryl yesterday, but has not taken anything else. Onset Date: 09/22/20 Duration: Constant Location: Reports: Chest (Right breast area), Upper Extremity, Left, Upper Extremity, Right, Lower Extremity, Left, Lower Extremity, Right Quality: Reports: Ache, Burning Severity: Moderate Improves with: Reports: None Worsens with: Reports: None Context: Reports: Other Associated Symptoms: Reports: No Other Symptoms - Related Data Allergies Allergy/AdvReac Type Severity Reaction Status Date / Time aspirin Allergy Facial Verified 07/19/20 18:19 Swelling ibuprofen Allergy Hives Verified 07/19/20 18:19 ketorolac [From Toradol] Allergy Hives Verified 07/19/20 18:19 Home Meds: Home Meds desogestreL-ethinyl estradioL [Juleber 28 Day Tablet] 1 each PO DAILY 09/16/16 [History] Acetaminophen [Tylenol Extra Strength] 1,000 mg PO ASDIRECTED PRN 08/05/18 [History] Celecoxib [Celebrex] 50 mg PO BID 08/05/18 [History] metFORMIN [Glucophage XR] 1,000 mg PO BIDMEALS 03/18/19 [History] Pioglitazone [Actos] 30 mg PO DAILY 04/02/20 [History] Past Medical History - Past Health History Medical/Surgical History: Denies Medical/Surgical History HEENT History: Reports: Impaired Vision Cardiovascular History: Reports: None Respiratory History: Reports: None Gastrointestinal History: Reports: None Genitourinary History: Reports: None 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 of Rt. hip Neurological History: Reports: Concussion Psychiatric History: Reports: Anxiety, Depression Endocrine/Metabolic History: Reports: Diabetes, Gestational, Obesity/BMI 30+ Hematologic History: Reports: Anemia, Blood Transfusion(s) Immunologic History: Reports: None Oncologic (Cancer) History: Reports: None Dermatologic History: Reports: None - Infectious Disease History Infectious Disease History: Reports: None, Novel Coronavirus - Past Surgical History Head Surgeries/Procedures: Reports: None Cardiovascular Surgical History: Reports: None Respiratory Surgical History: Reports: None GI Surgical History: Reports: None Female Surgical History: Reports: Section Neurological Surgical History: Reports: None Dermatological Surgical History: Reports: None Social & Family History - Family History Family Medical History: No Pertinent Family History - Tobacco Use Tobacco Use Status *Q: Never Tobacco User - Caffeine Use Caffeine Use: Reports: Coffee, Soda Other Caffeine Use: 2 cups coffee/day - Recreational Drug Use Recreational Drug Use: No - Living Situation & Occupation Living situation: Reports: with Significant Other, with Family Occupation: Employed ED ROS ALLERGIC REACTION - Review of Systems Review Of Systems: Comprehensive ROS is negative, except as noted in HPI. ED EXAM GENERAL NO PERIP PULSE - Physical Exam Exam: See Below Exam Limited By: No Limitations General Appearance: Alert, WD/WN, No Apparent Distress Eye Exam: Bilateral Eye: EOMI, Normal Inspection, PERRL Ears: Normal External Exam, Normal Canal, Hearing Grossly Normal, Normal TMs Nose: Normal Inspection, Normal Mucosa, No Blood Throat/Mouth: Normal Inspection, Normal Lips, Normal Teeth, Normal Gums, Normal Oropharynx, Normal Voice, No Airway Compromise Head: Atraumatic, Normocephalic Neck: Normal Inspection, Supple, Non-Tender, Full Range of Motion Respiratory/Chest: No Respiratory Distress, Lungs Clear, Normal Breath Sounds, No Accessory Muscle Use, Chest Non-Tender Cardiovascular: Normal Peripheral Pulses, Regular Rate, Rhythm, No Edema, No Gallop, No JVD, No Murmur, No Rub GI/Abdominal: Normal Bowel Sounds, Soft, Non-Tender, No Organomegaly, No Distention, No Abnormal Bruit, No Mass (Female) Exam: Deferred Rectal (Female) Exam: Deferred Back Exam: Normal Inspection, Full Range of Motion, NT Extremities: Normal Inspection, Normal Range of Motion, No Pedal Edema, Normal Capillary Refill Neurological: Alert, Oriented, CN II-XII Intact, Normal Cognition, Normal Gait, Normal Reflexes, No Motor/Sensory Deficits Psychiatric: Normal Affect, Normal Mood Skin Exam: Warm, Dry, Intact, Normal Color, Rash (Right forearm, left hand, right breast, left foot and left lower leg. ) Lymphatic: No Adenopathy Course - Vital Signs Last Recorded V/S: Last Vital Signs Temp 97.7 F 09/26/20 18:56 Pulse 81 09/26/20 18:56 Resp 16 09/26/20 18:56 BP 121/70 09/26/20 18:56 Pulse Ox 97 09/26/20 18:56 - Orders/Labs/Meds Meds: Medications Discontinued Medications Generic Name Dose Route Start Last Admin Trade Name Torin PRN Reason Stop Dose Admin Prednisone 40 mg 09/26/20 19:27 Prednisone 20 Mg Tab PO 09/26/20 19:28 ONETIME ONE Departure - Departure Time of Disposition: 19:42 Disposition: Home, Self-Care 01 Condition: Fair Clinical Impression: Poison zina dermatitis - Discharge Information *PRESCRIPTION DRUG MONITORING PROGRAM REVIEWED*: Not Applicable *COPY OF PRESCRIPTION DRUG MONITORING REPORT IN PATIENT JUANI: Not Applicable Instructions: Poison Zina Dermatitis, [id number] Care Plan Goals: The patient was advised of the examination results during the visit. The patient was given an oral dose of Prednisone while in the ED. The patient was discharged with a script for Prednisone (20 mg) #8 to take 2 by mouth daily for 4 days. If the patient has any additional symptoms or concerns, the patient should either return to the emergency department for continued evaluation and management. Sepsis Event Note (ED) - Focused Exam Vital Signs: Vital Signs Temp Pulse Resp BP Pulse Ox 09/26/20 18:56 97.7 F 81 16 121/70 97
== END 2020-09-26 19:48 | disposition home or self-care (01) ==
LOC: DL.ED 18:18
DX: L23.7 Allergic contact dermatitis due to plants, except food (principal); E66.9 Obesity, unspecified; Z68.36 Body mass index [BMI] 36.0-36.9, adult; Z88.6 Allergy status to analgesic agent; Z88.5 Allergy status to narcotic agent; Z79.899 Other long term (current) drug therapy
CPT/HCPCS: 99282; J7512

== ENCOUNTER 2021-03-10 10:34 | Emergency (ER) | payer BC, MEDICAID ==
[2021-03-10 12:12] VITALS: BP 120/79; PULSE 76
[2021-03-10] MEDS ORDERED: Orphenadrine 60 MG/2 ML Inj IM ONE (12:35)
== END 2021-03-10 13:30 | disposition home or self-care (01) ==
LOC: DL.ED 10:34
DX: U07.1 COVID-19 (principal); R07.81 Pleurodynia; E66.9 Obesity, unspecified; Z68.35 Body mass index [BMI] 35.0-35.9, adult; Z88.6 Allergy status to analgesic agent; Z88.8 Allergy status to other drugs, medicaments and biological substances
CPT/HCPCS: 71101; 96372; 99283; J2360

== ENCOUNTER 2021-05-20 23:12 | Emergency (ER) | payer BC, MEDICAID ==
[2021-05-20 23:29] VITALS: BP 123/78; PULSE 91
[2021-05-20 23:52] LABS: ANION GAP 15.8 mEq/L (7-13); CHLORIDE,CL 103 mmol/L (98-107); SODIUM,NA 138 mmol/L (136-145)
[2021-05-20] MEDS ORDERED: Ondansetron 4 MG/2 ML SDV IVPUSH ONE (23:54)
[2021-05-21] MEDS: fentaNYL 100 MCG/2 ML SDV IVPUSH ONE ×2 (00:04→00:08)
== END 2021-05-21 01:56 | disposition home or self-care (01) ==
LOC: DL.ED 23:12
DX: R10.31 Right lower quadrant pain (principal); E66.9 Obesity, unspecified; Z68.41 Body mass index [BMI] 40.0-44.9, adult; Z88.6 Allergy status to analgesic agent; Z88.8 Allergy status to other drugs, medicaments and biological substances; Z86.16 Personal history of COVID-19; Z87.891 Personal history of nicotine dependence
CPT/HCPCS: 36415; 74019; 80053; 81003; 82150; 83690; 84703; 85025; 96374; 96375; 99284; 99285; J2405; J3010

== ENCOUNTER 2021-06-11 14:37 | Emergency (ER) | payer BC, MEDICAID ==
[2021-06-11 16:44] VITALS: BP 144/88; PULSE 86
== END 2021-06-11 17:20 | disposition home or self-care (01) ==
LOC: DL.ED 14:37
DX: K04.7 Periapical abscess without sinus (principal); E66.9 Obesity, unspecified; Z68.35 Body mass index [BMI] 35.0-35.9, adult; Z88.6 Allergy status to analgesic agent; Z88.8 Allergy status to other drugs, medicaments and biological substances
CPT/HCPCS: 99282

== ENCOUNTER 2021-11-19 12:15 | Emergency (ER) | payer BC, MEDICAID ==
[~2021-11-19 12:15] MED LIST changes: -Acetaminophen 325 MG Tab PO ONE; +Ondansetron 4 MG/2 ML SDV IV ONE
[2021-12-14 10:29] LABS: ANION GAP 10.8 mEq/L (7-13); CHLORIDE,CL 101 mmol/L (98-107); ESTIMATED GFR 113 mL/min (>=60); SODIUM,NA 135 mmol/L (136-145)
[2021-12-14 10:30] LABS: PTT,PARTIAL THROMBOPLSTIN TIME 23.9 SEC (22.0-34.0)
[2021-12-14 10:31] LABS: CORONAVIRUS COVID-19 NAA NEGATIVE (NEGATIVE)
== END 2021-11-20 12:25 | disposition home or self-care (01) ==
LOC: DL.ED 12:15
DX: R07.89 Other chest pain (principal); R11.0 Nausea
CPT/HCPCS: 0240U; 36415; 71045; 80053; 84484; 85025; 85379; 85610; 85730; 96374; 99285; A9270; J2405

== ENCOUNTER 2022-01-24 12:06 | Emergency (ER) | payer BC | END 2022-01-24 12:47 | disposition left against medical advice (07) | LOC: DL.ED 12:06 | DX: Z53.21 Procedure and treatment not carried out due to patient leaving prior to being seen by health care provider (principal) ==

== ENCOUNTER 2022-04-19 13:57 | Emergency (ER) | payer BC, MEDICAID ==
[2022-04-19 14:08] VITALS: BP 131/87; PULSE 78
== END 2022-04-19 14:47 | disposition home or self-care (01) ==
LOC: DL.ED 13:57
DX: S43.401A Unspecified sprain of right shoulder joint, initial encounter (principal); S40.022A Contusion of left upper arm, initial encounter; E66.9 Obesity, unspecified; Z68.32 Body mass index [BMI] 32.0-32.9, adult; Z88.8 Allergy status to other drugs, medicaments and biological substances; Z79.899 Other long term (current) drug therapy; W10.8XXA Fall (on) (from) other stairs and steps, initial encounter
CPT/HCPCS: 73030-LT; 73060-LT; 73090-LT; 99282; 99283

== ENCOUNTER 2022-05-19 19:25 | Emergency (ER) | payer BC, MEDICAID ==
[2022-05-19 20:51] VITALS: BP 114/79; PULSE 98
== END 2022-05-19 21:19 | disposition home or self-care (01) ==
LOC: DL.ED 19:25
DX: S93.402A Sprain of unspecified ligament of left ankle, initial encounter (principal); J01.80 Other acute sinusitis; R42 Dizziness and giddiness; E11.9 Type 2 diabetes mellitus without complications; E66.9 Obesity, unspecified; Z68.30 Body mass index [BMI] 30.0-30.9, adult; Z88.8 Allergy status to other drugs, medicaments and biological substances; Z79.899 Other long term (current) drug therapy; Z86.16 Personal history of COVID-19; W00.9XXA Unspecified fall due to ice and snow, initial encounter
CPT/HCPCS: 93005; 93010; 99283; 99284

== ENCOUNTER 2022-06-11 14:38 | Emergency (ER) | payer BC, MEDICAID ==
[2022-06-11 14:59] VITALS: BP 124/80; PULSE 63
[2022-06-11] MEDS ORDERED: Sodium Chloride 0.9% 10 ML Syringe FLUSH PRN (15:10)
[2022-06-11] MEDS ORDERED: HYDROmorphone 1 MG/ML Syringe IVPUSH ONE (15:30)
[2022-06-11] MEDS ORDERED: Ondansetron 4 MG/2 ML SDV IVPUSH ONE (15:30)
[2022-06-11 15:50] LABS: ANION GAP 15.1 mEq/L (7-13); CHLORIDE,CL 99 mmol/L (98-107); SODIUM,NA 136 mmol/L (136-145)
[2022-06-11 15:51] LABS: PTT,PARTIAL THROMBOPLSTIN TIME 26.4 SEC (22.0-34.0)
[2022-06-11 15:52] LABS: ESTIMATED GFR 114 mL/min (>=60)
[2022-06-11] MEDS ORDERED: Iopamidol 612 MG/ML 100 ML Bottle IVPUSH ONE (16:03)
== END 2022-06-11 17:03 | disposition home or self-care (01) ==
LOC: DL.ED 14:38
DX: K59.00 Constipation, unspecified (principal); R11.0 Nausea; E66.9 Obesity, unspecified; Z68.30 Body mass index [BMI] 30.0-30.9, adult; Z88.8 Allergy status to other drugs, medicaments and biological substances; Z86.16 Personal history of COVID-19
CPT/HCPCS: 36415; 74177; 80053; 81003; 81025; 82150; 83605; 83690; 84145; 85025; 85610; 85730; 86140; 96374; 96375; 99284; J1170; J2405; Q9967; J3490

== ENCOUNTER 2022-07-20 19:42 | Emergency (ER) | payer BC, MEDICAID ==
[2022-07-20] MEDS ORDERED: Tetracaine HCl/PF 0.5% 4 ML Bottle EYERT ONE (19:51)
[2022-07-20] MEDS ORDERED: Fluorescein 1 MG Ophth Strip EYERT ONE (19:52)
[2022-07-20 20:08] VITALS: BP 123/84; PULSE 86
[2022-07-20] MEDS ORDERED: Ciprofloxacin 0.3% Ophth Soln 5 ML Bottle EYERT ONE (20:24)
[2022-07-20] MEDS ORDERED: Gentamicin 0.3% Ophth Soln 5 ML Bottle EYERT SCH (21:00)
== END 2022-07-20 20:34 | disposition home or self-care (01) ==
LOC: DL.ED 19:42
DX: S05.01XA Injury of conjunctiva and corneal abrasion without foreign body, right eye, initial encounter (principal); E11.9 Type 2 diabetes mellitus without complications; Z86.16 Personal history of COVID-19; Z88.8 Allergy status to other drugs, medicaments and biological substances; Z79.84 Long term (current) use of oral hypoglycemic drugs; W22.09XA Striking against other stationary object, initial encounter
CPT/HCPCS: 99284; A9270-GY; J3490

== ENCOUNTER 2022-10-03 14:07 | Emergency (ER) | payer BC, MEDICAID ==
[2022-10-03 14:17] VITALS: BP 123/79; PULSE 74
[2022-10-03] MEDS ORDERED: Sodium Chloride 0.9% 10 ML Syringe FLUSH PRN (16:00)
[2022-10-03 16:14] LABS: BASOPHILS PERCENT AUTO 0.3 % (0.0-1.0); EOSINOPHILS PERCENT AUTO 1.2 % (1.0-3.0); HEMATOCRIT 37.3 % (37.0-47.0); MEAN CORPUSCULAR HEMOGLOBIN 28.6 pg (27.0-34.0); MEAN CORPUSCULAR HGB CONC 32.2 g/dL (33.0-35.0); NEUTROPHILS PERCENT AUTO 62.5 % (42.2-75.2); PLATELET COUNT,PLT 249 10^3/uL (150-450); RED BLOOD CELL COUNT 4.19 10^6/uL (4.2-5.4); WHITE BLOOD CELL COUNT,WBC 5.9 10^3/uL (5.0-10.0)
[2022-10-03] MEDS ORDERED: diphenhydrAMINE 50 MG/ML SDV IVPUSH ONE (16:18)
[2022-10-03 16:27] LABS: APPEARANCE,URINE CLEAR (CLEAR); BILIRUBIN,URINE NEGATIVE (NEGATIVE); COLOR,URINE YELLOW (YELLOW); GLUCOSE,URINE 500 (NEGATIVE); KETONES,URINE NEGATIVE (NEGATIVE); LEUKOCYTE ESTERASE,URINE NEGATIVE (NEGATIVE); NITRITE,URINE NEGATIVE (NEGATIVE); OCCULT BLOOD,URINE NEGATIVE (NEGATIVE); PH,URINE 6.5 (5.0-9.0); PROTEIN,URINE NEGATIVE (NEGATIVE); UROBILINOGEN,URINE 0.2 mg/dL (0.2-1.0)
[2022-10-03 16:38] LABS: ALANINE AMINOTRANSFERASE,ALT 18 U/L (14-59); ALBUMIN 3.1 g/dL (3.4-5.0); ALKALINE PHOSPHATASE 111 U/L (46-116); ASPARTATE AMNIOTRANSFERASE,AST 6 U/L (15-37); BILIRUBIN TOTAL 0.3 mg/dL (0.2-1.0); BLOOD UREA NITROGEN,BUN 8 mg/dL (7-18); BUN/CREATININE RATIO 11.6 (No establ ref range); CARBON DIOXIDE,CO2 25 mmol/L (21-32); CHLORIDE,CL 103 mmol/L (98-107); CREATININE 0.69 mg/dL (0.55-1.02); EST CRCL DRUG DOSING (CG) 116.66 mL/min; GLUCOSE RANDOM 363 mg/dL (70-99); MAGNESIUM 1.7 mg/dL (1.8-2.4); PROTEIN TOTAL,TP 6.8 g/dL (6.4-8.2); SODIUM,NA 138 mmol/L (136-145)
[2022-10-03 16:56] LABS: A/G RATIO 0.84; ESTIMATED GFR 115 mL/min (>=60)
[2022-10-03] MEDS ORDERED: Sodium Chloride 0.9% 1,000 ML IV ONE (16:58)
== END 2022-10-03 17:42 | disposition home or self-care (01) ==
LOC: DL.ED 14:07
DX: F41.9 Anxiety disorder, unspecified (principal); E10.65 Type 1 diabetes mellitus with hyperglycemia; Z86.16 Personal history of COVID-19; Z88.6 Allergy status to analgesic agent
CPT/HCPCS: 36415; 80053; 81003; 81025; 83735; 84484; 85025; 93005; 93010; 96361; 96374; 99284; J1200; J7030; J3490

== ENCOUNTER 2023-06-24 21:13 | Emergency (ER) | payer BC, MEDICAID ==
[2023-06-24 21:37] VITALS: BP 124/66; PULSE 84
[2023-06-24] MEDS: Lactated Ringers 1,000 ML IV ONE (21:50)
[2023-06-24] MEDS: Morphine 2 MG/ML SYRINGE IVPUSH ONE (21:50)
[2023-06-24 22:10] LABS: BASOPHILS PERCENT AUTO 0.7 % (0.0-1.0); EOSINOPHILS PERCENT AUTO 3.4 % (1.0-3.0); HEMATOCRIT 38.1 % (37.0-47.0); HEMOGLOBIN 12.5 g/dL (12.0-16.0); LYMPHOCYTES PERCENT AUTO 19.8 % (20.5-50.1); MEAN CORPUSCULAR HEMOGLOBIN 28.5 pg (27.0-34.0); MEAN CORPUSCULAR HGB CONC 32.8 g/dL (33.0-35.0); MONOCYTES PERCENT AUTO 15.6 % (2-8); NEUTROPHILS PERCENT AUTO 60.5 % (42.2-75.2); PLATELET COUNT,PLT 239 10^3/uL (150-450); RED BLOOD CELL COUNT 4.38 10^6/uL (4.2-5.4); WHITE BLOOD CELL COUNT,WBC 4.1 10^3/uL (5.0-10.0)
[2023-06-24 22:37] LABS: A/G RATIO 0.79; ALBUMIN 3.1 g/dL (3.4-5.0); ANION GAP 14.1 mEq/L (7-13); BILIRUBIN TOTAL 0.3 mg/dL (0.2-1.0); CALCIUM 8.7 mg/dL (8.5-10.1); EST CRCL DRUG DOSING (CG) 79.72 mL/min; POTASSIUM,K 4.1 mmol/L (3.5-5.1)
[2023-06-24] MEDS: HYDROmorphone 1 MG/ML Syringe IVPUSH ONE (23:11)
[2023-06-24] MEDS: Orphenadrine 60 MG/2 ML Inj IM ONE (23:46)
[2023-06-25] MEDS: HYDROmorphone 1 MG/ML Syringe IVPUSH ONE (00:49)
== END 2023-06-25 01:17 | disposition home or self-care (01) ==
LOC: DL.ED 21:13
DX: O03.9 Complete or unspecified spontaneous abortion without complication (principal); O99.891 Other specified diseases and conditions complicating pregnancy; R10.84 Generalized abdominal pain; N94.6 Dysmenorrhea, unspecified; E66.9 Obesity, unspecified; Z88.6 Allergy status to analgesic agent; Z88.8 Allergy status to other drugs, medicaments and biological substances; Z79.84 Long term (current) use of oral hypoglycemic drugs; Z79.899 Other long term (current) drug therapy; Z86.16 Personal history of COVID-19; Z68.30 Body mass index [BMI] 30.0-30.9, adult; Z3A.08 8 weeks gestation of pregnancy
CPT/HCPCS: 36415; 80053; 84702; 85025; 96361; 96372; 96374; 96375; 96376; 99284; J1170; J2270; J2360; J7120

== ENCOUNTER 2024-02-18 14:38 | Emergency (ER) | payer MEDICAID ==
[2024-02-18] MEDS: Ondansetron 4 MG Tab.DIS PO ONE (15:09)
[2024-02-18 15:59] LABS: BASOPHILS PERCENT AUTO 0.5 % (0.0-1.0); EOSINOPHILS PERCENT AUTO 0.8 % (1.0-3.0); HEMATOCRIT 42.6 % (37.0-47.0); HEMOGLOBIN 14.4 g/dL (12.0-16.0); LYMPHOCYTES PERCENT AUTO 18.7 % (20.5-50.1); MEAN CORPUSCULAR HEMOGLOBIN 29.1 pg (27.0-34.0); MEAN CORPUSCULAR HGB CONC 33.8 g/dL (33.0-35.0); MEAN CORPUSCULAR VOLUME 86.2 fL (80-100); MONOCYTES PERCENT AUTO 7.4 % (2-8); NEUTROPHILS PERCENT AUTO 72.6 % (42.2-75.2); PLATELET COUNT,PLT 258 10^3/uL (150-450); RED BLOOD CELL COUNT 4.94 10^6/uL (4.2-5.4); WHITE BLOOD CELL COUNT,WBC 9.1 10^3/uL (5.0-10.0)
[2024-02-18 16:13] LABS: APPEARANCE,URINE CLEAR (CLEAR); BILIRUBIN,URINE NEGATIVE (NEGATIVE); COLOR,URINE YELLOW (YELLOW); GLUCOSE,URINE 500 (NEGATIVE); KETONES,URINE NEGATIVE (NEGATIVE); LEUKOCYTE ESTERASE,URINE TRACE (NEGATIVE); NITRITE,URINE NEGATIVE (NEGATIVE); OCCULT BLOOD,URINE TRACE-INTACT (NEGATIVE); PROTEIN,URINE TRACE (NEGATIVE); UROBILINOGEN,URINE 0.2 mg/dL (0.2-1.0)
[2024-02-18 16:20] LABS: LACTIC ACID 1.8 mmol/L (0.4-2.0)
[2024-02-18 16:26] LABS: INR 0.9 (0.9-1.2); PROTHROMBIN TIME 9.8 SEC (9.0-12.0); PTT,PARTIAL THROMBOPLSTIN TIME 23.8 SEC (22.0-34.0)
[2024-02-18 16:31] LABS: A/G RATIO 0.8; ALANINE AMINOTRANSFERASE,ALT 26 U/L (14-59); ALBUMIN 3.5 g/dL (3.4-5.0); ALKALINE PHOSPHATASE 109 U/L (46-116); ANION GAP 14.9 mEq/L (7-13); ASPARTATE AMNIOTRANSFERASE,AST 11 U/L (15-37); BILIRUBIN TOTAL 0.6 mg/dL (0.2-1.0); BLOOD UREA NITROGEN,BUN 19 mg/dL (7-18); CALCIUM 9.1 mg/dL (8.5-10.1); CARBON DIOXIDE,CO2 25 mmol/L (21-32); CHLORIDE,CL 100 mmol/L (98-107); CREATININE 0.95 mg/dL (0.55-1.02); GLUCOSE RANDOM 379 mg/dL (70-99); LIPASE 16 U/L (16-77); POTASSIUM,K 3.9 mmol/L (3.5-5.1); PROTEIN TOTAL,TP 7.9 g/dL (6.4-8.2); SODIUM,NA 136 mmol/L (136-145)
[2024-02-18 16:32] LABS: ESTIMATED GFR 79 mL/min (>=60)
[2024-02-18 17:04] LABS: EPITHELIAL CELLS,URINE MODERATE /HPF (NOT SEEN); RBC,URINE 0-5 /HPF (0-5)
[2024-02-18 17:05] LABS: AMORPHOUS SEDIMENT,URINE FEW /HPF (NOT SEEN); BACTERIA,URINE FEW /HPF (0-FEW/HPF)
[2024-02-18 18:12] VITALS: BP 108/70; PULSE 88
[2024-02-18] MEDS ORDERED: Iopamidol 612 MG/ML 100 ML Bottle IVPUSH ONE (18:50)
[2024-02-18] MEDS ORDERED: cefTRIAXone 1 GM Vial IVPUSH ONE (18:50)
== END 2024-02-18 19:57 | disposition left against medical advice (07) ==
LOC: DL.ED 14:38
DX: R10.12 Left upper quadrant pain (principal); E10.9 Type 1 diabetes mellitus without complications; Z86.16 Personal history of COVID-19; Z88.5 Allergy status to narcotic agent; Z88.6 Allergy status to analgesic agent; Z79.84 Long term (current) use of oral hypoglycemic drugs; Z79.899 Other long term (current) drug therapy
CPT/HCPCS: 36415; 80053; 81001; 81025; 83605; 83690; 84145; 85025; 85610; 85730; 86140; 87040; 87086; 99284; A9270; 99283

== ENCOUNTER 2024-11-27 11:06 | Emergency (ER) | payer BC, OTHER ==
[2024-11-27 11:23] VITALS: BP 120/77; PULSE 90
== END 2024-11-27 11:47 | disposition home or self-care (01) ==
LOC: DL.ED 11:06
DX: J02.9 Acute pharyngitis, unspecified (principal); E10.9 Type 1 diabetes mellitus without complications; Z88.6 Allergy status to analgesic agent; Z88.5 Allergy status to narcotic agent; Z79.899 Other long term (current) drug therapy; Z79.84 Long term (current) use of oral hypoglycemic drugs; Z86.16 Personal history of COVID-19
CPT/HCPCS: 87428-QW; 99283

== ENCOUNTER 2024-11-27 19:28 | Emergency (ER) | payer BC, OTHER ==
[2024-11-27 19:35] VITALS: PULSE 94
[2024-11-27] MEDS: Dexamethasone 4 MG/ML SDV IM ONE (20:08)
[2024-11-27 20:36] VITALS: BP 127/88
== END 2024-11-27 20:34 | disposition home or self-care (01) ==
LOC: DL.ED 19:28
DX: B34.9 Viral infection, unspecified (principal); Z88.6 Allergy status to analgesic agent; Z88.5 Allergy status to narcotic agent; Z79.899 Other long term (current) drug therapy; Z79.84 Long term (current) use of oral hypoglycemic drugs
CPT/HCPCS: 87081; 87430; 96372; 99284; J1100